=== PATIENT | female | born 1945 | race Caucasian/White ===

== ENCOUNTER 2023-11-26 11:22 | Outpatient (RCR) | payer MEDICARE, OTHER, SELFPAY | END 2023-11-26 23:59 | disposition home or self-care (01) | LOC: RPT 11:22 | PROVIDERS: ATTENDING PHYSICIAN Family Medicine | DX: G14 Postpolio syndrome (principal); R26.89 Other abnormalities of gait and mobility; R26.2 Difficulty in walking, not elsewhere classified; M62.81 Muscle weakness (generalized) | CPT/HCPCS: 97163 ==

== ENCOUNTER 2023-12-26 15:10 | Outpatient (RCR) | payer MEDICARE, OTHER, SELFPAY | END 2023-12-26 23:59 | disposition home or self-care (01) | LOC: RPT 15:10 | PROVIDERS: ATTENDING PHYSICIAN Family Medicine | DX: R26.89 Other abnormalities of gait and mobility (principal); G14 Postpolio syndrome; R26.2 Difficulty in walking, not elsewhere classified; M62.81 Muscle weakness (generalized); M79.605 Pain in left leg | CPT/HCPCS: 97110; 97112; 97116; 97530 ==

== ENCOUNTER 2024-01-20 08:19 | Outpatient (RCR) | payer MEDICARE, OTHER, SELFPAY | END 2024-01-20 23:59 | disposition home or self-care (01) | LOC: RST 08:19 | PROVIDERS: ATTENDING PHYSICIAN Family Medicine | DX: G31.84 Mild cognitive impairment of uncertain or unknown etiology (principal); R41.841 Cognitive communication deficit | CPT/HCPCS: 96125; 97129; 97130 ==

== ENCOUNTER 2024-01-27 14:18 | Outpatient (RCR) | payer MEDICARE, OTHER, SELFPAY | END 2024-01-27 23:59 | disposition home or self-care (01) | LOC: RPT 14:18 | PROVIDERS: ATTENDING PHYSICIAN Family Medicine | DX: R26.89 Other abnormalities of gait and mobility (principal); G14 Postpolio syndrome; R26.2 Difficulty in walking, not elsewhere classified; M62.81 Muscle weakness (generalized); M79.605 Pain in left leg; Z73.6 Limitation of activities due to disability | CPT/HCPCS: 97110; 97112; 97116; 97530 ==

== ENCOUNTER 2024-02-24 15:39 | Outpatient (RCR) | payer MEDICARE, OTHER, SELFPAY | END 2024-02-24 23:59 | disposition home or self-care (01) | LOC: RPT 15:39 | PROVIDERS: ATTENDING PHYSICIAN Family Medicine | DX: R26.89 Other abnormalities of gait and mobility (principal); G14 Postpolio syndrome | CPT/HCPCS: 97110; 97112; 97116; 97530 ==

== ENCOUNTER 2024-02-27 10:55 | Outpatient (RCR) | payer MEDICARE, OTHER, SELFPAY | END 2024-02-27 23:59 | disposition home or self-care (01) | LOC: RST 10:55 | PROVIDERS: ATTENDING PHYSICIAN Family Medicine | DX: G31.84 Mild cognitive impairment of uncertain or unknown etiology (principal); R41.841 Cognitive communication deficit | CPT/HCPCS: 97129; 97130 ==

== ENCOUNTER 2024-03-02 12:27 | Outpatient (RCR) | payer MEDICARE, OTHER, SELFPAY | END 2024-03-02 23:59 | disposition home or self-care (01) | LOC: ROT 12:27 | PROVIDERS: ATTENDING PHYSICIAN Family Medicine | DX: G31.84 Mild cognitive impairment of uncertain or unknown etiology (principal) | CPT/HCPCS: 97129; 97130; 97167; 97530; 97535 ==

== ENCOUNTER 2024-03-23 12:37 | Outpatient (RCR) | payer MEDICARE, OTHER, SELFPAY | END 2024-03-23 23:59 | disposition home or self-care (01) | LOC: RPT 12:37 | PROVIDERS: ATTENDING PHYSICIAN Family Medicine | DX: R26.89 Other abnormalities of gait and mobility (principal) | CPT/HCPCS: 97110; 97112; 97116; 97530 ==

== ENCOUNTER 2024-04-05 10:00 | Outpatient (RCR) | payer MEDICARE, OTHER, SELFPAY | END 2024-04-05 23:59 | disposition home or self-care (01) | LOC: RPT 10:00 | PROVIDERS: ATTENDING PHYSICIAN Family Medicine | DX: R26.89 Other abnormalities of gait and mobility (principal); G14 Postpolio syndrome | CPT/HCPCS: 97110; 97112; 97116; 97530 ==

== ENCOUNTER → 2024-04-15 09:39 | Outpatient (REF) | payer MEDICARE, OTHER, SELFPAY | LOC: MRI 09:39 | PROVIDERS: ATTENDING PHYSICIAN Psychiatry & Neurology Neurology; FAMILY PHYSICIAN Family Medicine | DX: G45.9 Transient cerebral ischemic attack, unspecified (principal) | CPT/HCPCS: 70544; 70549; 70553; A9585 ==

== ENCOUNTER 2024-04-26 13:52 | Outpatient (RCR) | payer MEDICARE, OTHER, SELFPAY | END 2024-04-26 23:59 | disposition home or self-care (01) | LOC: ROT 13:52 | PROVIDERS: ATTENDING PHYSICIAN Family Medicine | DX: G31.84 Mild cognitive impairment of uncertain or unknown etiology (principal); R41.841 Cognitive communication deficit; Z73.6 Limitation of activities due to disability | CPT/HCPCS: 93306; 97129; 97130; 97530; 97535 ==

== ENCOUNTER 2024-04-30 13:06 | Outpatient (RCR) | payer MEDICARE, OTHER, SELFPAY | END 2024-05-04 07:51 | disposition home or self-care (01) | LOC: ROT 13:06 | PROVIDERS: ATTENDING PHYSICIAN Family Medicine | DX: R41.841 Cognitive communication deficit (principal); Z73.6 Limitation of activities due to disability | CPT/HCPCS: 97129; 97130; 97530; 97535 ==

== ENCOUNTER → 2024-06-17 11:16 | Outpatient (REF) | payer MEDICARE, OTHER, SELFPAY | LOC: MRI 3T 11:16 | PROVIDERS: ATTENDING PHYSICIAN Psychiatry & Neurology Neurology; FAMILY PHYSICIAN Family Medicine | DX: R93.7 Abnormal findings on diagnostic imaging of other parts of musculoskeletal system (principal) | CPT/HCPCS: 72141 ==

== ENCOUNTER → 2024-08-20 10:24 | Outpatient (REF) | payer MEDICARE, OTHER, SELFPAY | LOC: RAD 10:24 | PROVIDERS: ATTENDING PHYSICIAN Surgery Vascular Surgery; FAMILY PHYSICIAN Family Medicine | DX: I65.21 Occlusion and stenosis of right carotid artery (principal); I77.1 Stricture of artery | CPT/HCPCS: 93880; 93931 ==

== ENCOUNTER 2024-09-16 13:31 | Inpatient (IN) | payer MEDICARE, OTHER, SELFPAY ==
[2024-09-16] VITALS (10 sets, daily range): BP systolic 107–161; BP diastolic 71–96; BMI 35.4
--- NOTE | 2024-09-16 08:27 | ED.GENMED ---
History of Present Illness
General
Chief Complaint: Fall
Time Seen by Provider: 09/16/24 08:12
History of Present Illness
History of Present Illness:
79-year-old female with history of hypertension, hyperlipidemia, and insulin-dependent diabetes presents to the emergency department for evaluation of right hip pain after a fall earlier this morning. States she got up to go to the bathroom when
she lost her balance, fell striking the front of her head on the wall. She is uncertain of the details thereafter but 911 was called by her who was nearby. She currently denies headache, neck pain, or vision changes. Obvious shortening
and external rotation of the right lower extremity is noted
Past History
Past History
ED Past Medical History: HTN, Hypercholesterolemia, IDDM and Hypothyroidism
ED Past Surgical History: Appendectomy and (X 4)
Social History
Tobacco: Non-smoker
Alcohol: None
Personal:
Living: assisted living (For rehab)
Review of Systems
Review of Systems
Allergies reviewed?: Yes
All Other Systems: ROS reviewed and negative except as documented in HPI and ROS
Phy Exam
Physical Exam
Physical Exam:
GEN: Well appearing, NAD, WDWN
Eyes: PERRLA, EOMs intact, no scleral icterus
HENT: NCAT, oral mucosa moist
Lungs: CTAB, no wheezes, rales, rhonchi, normal chest wall excursion
Cardiac: RRR, no M/R/G, no peripheral edema. Radial pulses 2+ bilat
Abdomen: S, NT, ND, NABS, no masses or hepatosplenomegaly
Neuro: AO x 3, cranial nerves II through XII grossly intact, no focal deficits to BUE/BLE, normal sensation throughout
MSK: Obvious shortening and external rotation of the right lower extremity. No reproduced tenderness to palpation of the right hip, no crepitus
Skin: No rashes, petechiae. Normal color, no pallor or jaundice.
Psych: Calm, cooperative, proper hygiene
Course
Orders/Labs/Results
Orders:
Orders
09/16/24 08:26
CT Head W/o Iv Contrast Urgent
Comment:
Reason For Exam: fall head injury
HYDROmorphone [Dilaudid] 0.25 mg IV NOW STA
CR Hip - RT w/wo Pel 2-3 Vw* Urgent
Comment:
Reason For Exam: fall
Include a pelvis x-ray?: Yes
09/16/24 08:28
Complete Blood Count/With Diff Urgent
Comprehensive Metabolic Panel Urgent
09/16/24 09:36
Electrocardiogram (*1) Urgent
Reason for Study: QTc Monitoring
EKG- Treatment ONCE
09/16/24 10:30
HYDROmorphone [Dilaudid] 0.25 mg IV NOW STA
09/16/24 11:32
HYDROmorphone [Dilaudid] 0.25 mg IV NOW STA
CR Knee - Right 1 Or 2 Views Urgent
Comment:
Reason For Exam: hip fx, knee pain
09/16/24 12:58
Admit/Transfer Patient As Directed
Co-Sign Provider:
Level of Care: Inpatient admission
Assign to:: Telemetry
Physician / Group: pasricha/medicine
Diagnosis: fx
Reason for Telemetry: Arrhythmia
Date to Stop Telemetry: 09/19/24
Time to Stop Telemetry: 11:00
Reason for Hospitalization: fx
Expected length of stay greater than two midnights?: Yes
ELOS- Estimated Length of Stay in days: 3
I certify the patient meets the requirements for IP care: Yes
09/16/24 13:00
PRN Pain Medication Management As Directed
May give lesser potent ordered pain med per pt: Yes
preference::
Protocol:: Medication orders for pain may be administered in a
manner that supports deferring to patient preference
when the pt is:
- Requesting an ordered lesser potent pain medication.
Least to most potent pain medications are defined
as: acetaminophen < NSAID < tramadol < opioids
(morphine, oxycodone, hydromorphone).
- Requesting a lesser dose of the same medication IF
ORDERED.
- Requesting a less intrusive route of administration
if both routes are prescribed by the provider (PO <
IV).
09/16/24 13:05
Code Status As Directed
Resuscitation Status: Full Code
09/16/24 15:01
Morphine Sulfate 1 mg IV Q2HPRN PRN
09/19/24 11:00
DC Protocol for Telemetry ONCE
Abnormal Lab Results
09/16/24
08:28
MCH 31.5 H pg
(27.0-31.0)
Abs Immat Gran (auto) 0.1 H 10^3/uL
(0-0.05)
Absolute Neuts (auto) 8.1 H 10^3/uL
(1.4-6.5)
Absolute Lymphs (auto) 0.9 L 10^3/uL
(1.2-3.4)
Immature Gran % 0.6 H %
(0-0.5)
Neutrophils % 83.0 H %
(42.2-75.2)
Lymphocytes % 9.3 L %
(20.5-51.1)
Carbon Dioxide 31 H mmol/L
(22-30)
BUN 19 H mg/dl
(7-17)
Creatinine 0.5 L mg/dL
(0.6-1.0)
Glucose 296 H mg/dl
(70-99)
Total Protein 6.1 L g/dl
(6.3-8.2)
09/16/24 08:28
09/16/24 08:28
Vital Signs
Initial and Last Documented VS:
Initial Vital Signs
Temp Pulse Resp BP Pulse Ox
97.8 F 90 16 152/75 98
09/16/24 08:13 09/16/24 08:13 09/16/24 08:13 09/16/24 08:13 09/16/24 08:13
Last Documented Vital Signs
Temp Pulse Resp BP Pulse Ox
97.8 F 97 17 161/93 97
09/16/24 08:13 09/16/24 10:00 09/16/24 10:00 09/16/24 09:21 09/16/24 10:00
MDM/Problems Addressed
MDM/Problems Addressed:
Intertrochanteric fracture identified on x-rays, will admit to the medical service for orthopedic consultation and further management
*Critical Care Note
Total Time (30-74mins, 75-104mins- exclusive of procedures): Not Applicable
ED Attending Note
-
Portions of this chart may have been created with voice recognition software.� Occasional wrong word or��sound alike� substitutions may have occurred due to the inherent limitations of voice recognition software.
Discharge Plan
Departure
Patient Disposition: Admit
Date of Disposition: 09/16/24
Time of Disposition: 09:24
Admit to: Med/Surg
Presentation/result/management discussed w/ accepting MD/DO: Hospitalist
Discharge Problem:
Closed intertrochanteric fracture of right femur
Interventions
Interventions:
*Risk Screen - Suicide Last Done: 09/16/24 08:13
*General Assessment Last Done: 09/16/24 08:13
*Neglect/Abuse Screening Last Done: 09/16/24 08:13
*ED COVID-19 Vaccine History Last Done: 09/16/24 08:13
ED-Musculoskeletal Assessment Last Done: 09/16/24 10:06
ED- Neurological Assessment Last Done: 09/16/24 10:06
ED-Skin Assessment Last Done: 09/16/24 10:06
[2024-09-16] MEDS: DILAUDID 0.25 MG IV ×3 (08:30→11:47)
[2024-09-16 08:47] LABS: % Basophils 0.7 % (0-2); % Eosinophils 0.8 % (0-6); % Immature Granulocytes 0.6 % (0-0.5); % Lymphocytes 9.3 % (20.5-51.1); % Monocytes 5.6 % (1.7-9.3); Absolute Basophils 0.1 10^3/uL (0-0.2); Absolute Eosinophils 0.1 10^3/uL (0-0.7); Absolute Immature Granulocytes 0.1 10^3/uL (0-0.05); Absolute Lymphocytes 0.9 10^3/uL (1.2-3.4); Absolute Monocytes 0.6 10^3/uL (0.1-0.6); Absolute Neutrophils 8.1 10^3/uL (1.4-6.5); Hematocrit 41.6 % (37.0-47.0); Mean Corp Hgb Conc. 33.7 g/dL (33.0-37.0); Mean Corpuscular Hgb 31.5 pg (27.0-31.0); Mean Corpuscular Volume 93.5 fL (81.0-99.0); Mean Platelet Volume 10.4 fL (7.4-10.4); Nucleated Red Blood Cells % 0 %; Platelet Count 260 10^3/uL (130-400); Red Blood Cell Count 4.45 10^6/uL (4.20-5.40); Red Cell Dist. Width 12.2 % (11.5-14.5); White Blood Cell Count 9.8 10^3/uL (4.8-10.8)
[2024-09-16 08:49] LABS: ALT (SGPT) 20 U/L (0-35); AST (SGOT) 21 U/L (14-36); Albumin 3.7 g/dl (3.5-5.0); Alkaline Phosphatase 105 U/L (38-126); Blood Urea Nitrogen 19 mg/dl (7-17); Calcium 8.9 mg/dl (8.4-10.2); Carbon Dioxide 31 mmol/L (22-30); Chloride 101 mmol/L (98-107); Estimated Creatinine Clearance 77 ml/min; Glucose 296 mg/dl (70-99); Sodium 137 mmol/L (135-145); Total Bilirubin 0.5 mg/dl (0.2-1.3); Total Protein 6.1 g/dl (6.3-8.2); eGFR > 60.00
--- NOTE | 2024-09-16 14:21 | HPS.HSE ---
Family Physician
-
Family Physician: Adarsh Villela
Chief Complaint
-
Fall
History of Present Illness
79-year-old female with past medical history of hypertension, hyperlipidemia, diabetes, hypothyroidism now presents with right hip pain after a fall earlier this morning. As per patient, he got up from the bathroom, lost her balance and fell to the
floor striking her head on the wall. Remembers the fall although uncertain of the events after the fall. called 911, prompting hospital visit. Otherwise no headache, neck pain, vision changes, URI symptoms, dysuria, hematuria. One similar
episode 6 months ago. Has not seen physician for this. Remained afebrile, blood pressure 161/93, pulse 97, respiratory rate 17, saturating at 97% on room air. On physical exam, shortening and external rotation of the right lower extremity.
Remarkable labs, include slightly elevated glucose level. Head CT unremarkable for acute pathology, on aspirin. X-ray of the hip with evidence of comminuted intertrochanteric fracture of the right proximal femur. Diffuse osteopenia.
Medical History
Past Medical History
Past Medical History: Reports Other ( HTN, Hypercholesterolemia, IDDM and Hypothyroidism)
Past Surgical History: Reports Other ( Appendectomy and (X 4))
Social History
Unable to obtain full social history at this time due to: Ac[employer]
Tobacco: Non-smoker
Alcohol: None
Drug: None
Personal:
Living: Assisted Living
Family History
Family History: Not pertinent
Allergies / Home Medications
Allergies reflects when Allergies were last updated in [facility].
Home Medications with original date entered in [facility]
Allergy/Medication List:
Allergies
Allergy/AdvReac Type Severity Reaction Status Date / Time
adhesive tape Allergy Unknown Verified 09/16/24 08:18
amoxicillin Allergy Unknown- Verified 09/16/24 09:53
tolerated
cefazolin
in the past
bee venom protein (honey bee) Allergy Unknown Verified 09/16/24 08:18
minocycline [From Minocin] Allergy Unknown Verified 09/16/24 08:18
Sulfa (Sulfonamide Allergy Unknown Verified 09/16/24 08:18
Antibiotics)
Home Medications
aspirin 81 mg tablet,delayed release 81 mg PO DAILY Blood clot prevention/tx 06/07/22
atorvastatin 80 mg tablet (Lipitor) 80 mg PO DAILY High cholesterol 06/07/22
cholecalciferol (vitamin D3) 50 mcg (2,000 unit) capsule (Vitamin D3) 4,000 mcg PO HS Supplement 06/07/22
insulin glargine 100 unit/mL (3 mL) subcutaneous pen (Lantus Solostar U-100 Insulin) 24 unit SC DAILY Diabetes 06/07/22
insulin lispro 100 unit/mL subcutaneous pen (Humalog KwikPen (U-100) Insulin) 3 unit SC AC Diabetes 06/07/22
lisinopril 10 mg tablet 10 mg PO HS Blood pressure 06/07/22
cxurvtie-uthsrjjv-tlrg 8 mg-folic ac 400 mcg-vit K 10 mcg chew tablet (Centrum Chewables) 2 tab PO DAILY Supplement 06/07/22
vit C 250 mg-vit E 90 mg-zinc 40 mg-copper 1 hp-planof-wsfpcf capsule (PreserVision AREDS-2) 1 tab PO BID Supplement 06/07/22
calcium carbonate (Calcium 500) 1,000 mg PO DAILY Supplement 09/16/24
duloxetine 20 mg capsule,delayed release (Cymbalta) 40 mg PO DAILY Mental Health 09/16/24
ibuprofen 200 mg tablet (Advil) 200 mg PO DAILYPRN PRN MILD PAIN 09/16/24
levothyroxine 112 mcg tablet (Synthroid) 112 mcg PO DAILY Thyroid 09/16/24
polyethylene glycol 3350 17 gram oral powder packet (Miralax) 17 g PO DAILYPRN PRN CONSTIPATION 09/16/24
Review of Systems
-
History Source: Patient
A 12 point ROS was completed and negative except as noted: Yes
Physical Exam
Vital Signs
Vital Signs
Temp Pulse Resp BP Pulse Ox
97.8 F 97 17 161/93 97
09/16/24 08:13 09/16/24 10:00 09/16/24 10:00 09/16/24 09:21 09/16/24 10:00
Physical Exam
General: Well Developed and Well Nourished
HEENT: NormoCephalic
Respiratory: Clear
Cardiac: S1/S2
GI: Soft and Non Tender
Musculoskeletal: No Clubbing and Other ( shortening and external rotation of the right lower extremity. No reproduced tenderness to palpation of the right hip, no crepitus)
Skin: Warm
Neuro: Awake, Alert, Oriented and AO x 3
Psych: Calm
Laboratory Results
-
09/16/24 08:28
09/16/24 08:28
Laboratory Results
Total Bilirubin 0.5 mg/dl (0.2-1.3) 09/16/24 08:28
AST 21 U/L (14-36) 09/16/24 08:28
ALT 20 U/L (0-35) 09/16/24 08:28
Alkaline Phosphatase 105 U/L (38-126) 09/16/24 08:28
Data Reviewed
-
Diagnostic Radiology: Report Reviewed by me
CT Scan: Report Reviewed by me
Lab Data: Labs Reviewed by me
Impression/Plan
-
IMPRESSION:
79-year-old female with past medical history of hypertension, hyperlipidemia, diabetes, hypothyroidism now presents with right hip pain after a fall earlier this morning. Had head strike with no acute issues, X-ray of the hip with evidence of
comminuted intertrochanteric fracture of the right proximal femur.
PLAN:
#Comminuted intertrochanteric fracture of the right proximal femur.
�Ortho consulted, anticipate OR within the next 24 hours
� PT/OT thereafter
-HSQ, ASA 325mg daily most likely post OR
-remain nonweightbearing to her right lower extremity
-Continue with ice and strict elevation for edema control
- Continue with pain management as needed.
#Fall
-PT/OT
-Repeat Head CT this evening
-orthostatics after procedure
-see plan above
-Cont tele
#Hypertension
#Hyperlipidemia
� Continue lisinopril
� Continue aspirin
� Continue statin
#Hypothyroidism
� Continue Synthroid
#Diabetes type 2
� Continue insulin regimen
� Half dose Lantus anticipating OR tomorrow, n.p.o.
#DVT ppx
-hsq
[2024-09-16] MEDS: MORPHINE SULFATE 1 MG IV ×2 (15:08→20:36)
--- NOTE | 2024-09-16 16:47 | CON.ORTHO ---
Consultation - Orthopedics
History
Ms. Key is an 79-year-old female with past medical history of hypertension, hyperlipidemia, and insulin-dependent diabetes with peripheral neuropathy. Her daughter also reports a history of stroke which was found on MRI. She is seen today for
her right hip. Her and daughters are present at the bedside. She reports she was getting up from using the bathroom when she lost her balance a fell to the floor. She experienced immediate onset of pain, and was unable to get up off the
floor. She was brought to ED via EMS where x-rays revealed a right intertrochanteric femur fracture. She is resting comfortably in bed at present, but does endorse mild aching pain in the hip.
She lives with her . She has a history of polio as a child with baseline strength deficit in her right leg. She has a history of ORIF of her left femur performed by Dr. Patel on 06/08/2022. Her daughter reports she does not ambulate much
currently due to her peripheral neuropathy and strength deficits. She is able to do transfers. She does not take any daily blood thinners.
Allergies / Home Medications
Allergy/AdvReac Type Severity Reaction Status Date / Time
adhesive tape Allergy Unknown Verified 09/16/24 08:18
amoxicillin Allergy Unknown- Verified 09/16/24 09:53
tolerated
cefazolin
in the past
bee venom protein (honey bee) Allergy Unknown Verified 09/16/24 08:18
minocycline [From Minocin] Allergy Unknown Verified 09/16/24 08:18
Sulfa (Sulfonamide Allergy Unknown Verified 09/16/24 08:18
Antibiotics)
�Medication �Instructions �Recorded
aspirin 81 mg tablet,delayed 81 mg PO DAILY Blood clot 06/07/22
release prevention/tx
atorvastatin 80 mg tablet (Lipitor) 80 mg PO DAILY High cholesterol 06/07/22
cholecalciferol (vitamin D3) 50 4,000 mcg PO HS Supplement 06/07/22
mcg (2,000 unit) capsule (Vitamin
D3)
insulin glargine 100 unit/mL (3 24 unit SC DAILY Diabetes 06/07/22
mL) subcutaneous pen (Lantus
Solostar U-100 Insulin)
insulin lispro 100 unit/mL 3 unit SC AC Diabetes 06/07/22
subcutaneous pen (Humalog KwikPen
(U-100) Insulin)
lisinopril 10 mg tablet 10 mg PO HS Blood pressure 06/07/22
yvurjyji-nwwbhmlx-tbqj 8 mg-folic 2 tab PO DAILY Supplement 06/07/22
ac 400 mcg-vit K 10 mcg chew
tablet (Centrum Chewables)
vit C 250 mg-vit E 90 mg-zinc 40 1 tab PO BID Supplement 06/07/22
mg-copper 1 [id number]-uvmtnv-vttnvk
capsule (PreserVision AREDS-2)
calcium carbonate (Calcium 500) 1,000 mg PO DAILY Supplement 09/16/24
duloxetine 20 mg capsule,delayed 40 mg PO DAILY Mental Health 09/16/24
release (Cymbalta)
ibuprofen 200 mg tablet (Advil) 200 mg PO DAILYPRN PRN MILD PAIN 09/16/24
levothyroxine 112 mcg tablet 112 mcg PO DAILY Thyroid 09/16/24
(Synthroid)
polyethylene glycol 3350 17 gram 17 g PO DAILYPRN PRN CONSTIPATION 09/16/24
oral powder packet (Miralax)
Vital Signs / Lab Results
Temp Pulse Resp BP Pulse Ox
97.8 F 97 17 161/93 97
09/16/24 08:13 09/16/24 10:00 09/16/24 10:00 09/16/24 09:21 09/16/24 10:00
09/16/24 08:28
09/16/24 08:28
XR Right Hip 09/16/2024 IMPRESSION:
Comminuted intertrochanteric fracture of the right proximal femur.
Directed exam of the right lower extremity reveals no obvious erythema, ecchymosis, edema or lesions. Mild tenderness about the anterior and lateral hip. Thigh soft and compressible. Calf soft and nontender. Patient able to wiggle toes, plantar and
dorsiflex ankle. Neurovascularly intact distally.
Assessment / Plan
Right intertrochanteric femur fracture
--Unfortunately, Marilin sustained an intertrochanteric femur fracture in her fall. Treatment options were discussed in detail, and I recommend proceeding with a right hip cephalomedullary nail. The risks, benefits, alternatives, recovery process
and potential complications were discussed in detail with her and her family. She would like to proceed with surgical intervention of her fracture. This is tentatively scheduled for tomorrow morning under the direction of Dr. Peck. Surgical and
blood consents are signed and scanned into the patient chart. Paper copy at OR desk.
--Of note, her daughters report she is very sensitive to anesthesia, and it took her several days to recover cognitively after her last surgery. Her daughters also reports some short term memory issues recently.
--NPO after midnight for OR 09/17/24.
--NWB to RLE until surgery.
--T+S ordered.
--Pain control as needed.
--Please reach out with any additional orthopedic questions or concerns.
--- NOTE | 2024-09-16 17:30 | PTCARENOTE ---
Pt received from the ED via stretcher. Transport was w/o incident. Pt is AAOx2., HR is tachy at 116 apically. Pt is Sinus Tach on Cardiace monitor. Pt's right leg sl externally rotated. Right leg and foot with 2+ edema. Pulses are present and sl
weak to right foot. No edema on left leg/foot. VSS, Pt is afebrile. Pt instructed on plan of care. Pt verbalized understanding of instructions. Call alegre is within reach.
[2024-09-16] MEDS: SENOKOT 17.2 MG PO (20:34)
[2024-09-16] MEDS: COLACE 100 MG PO (20:34)
[2024-09-16] MEDS: OCUVITE SOFTGEL 1 CAP PO (20:34)
[2024-09-16] MEDS: HEPARIN 5000 UNITS SC (20:35)
[2024-09-16] MEDS: TYLENOL 650 MG PO ×2 (20:35→23:46)
[2024-09-16] MEDS: VITAMIN D3 (cholecalciferol) 100 MCG PO (20:38)
[2024-09-16] MEDS: ZESTRIL 10 MG PO (20:38)
[2024-09-16 22:07] LABS: Glucose - Point of Care 370 mg/dl (70-99)
[2024-09-16] MEDS: NOVOLOG FLEXPEN 5 UNITS SC (22:37)
[2024-09-16] MEDS: NOVOLOG FLEXPEN 3 UNITS SC (22:37)
[2024-09-17] VITALS (14 sets, daily range): BP systolic 98–141; BP diastolic 54–76
[2024-09-17] MEDS: MORPHINE SULFATE 1 MG IV (02:05)
[2024-09-17] MEDS: TYLENOL 650 MG PO ×3 (05:28→19:50)
[2024-09-17] MEDS: SYNTHROID 112 MCG PO (05:28)
[2024-09-17 05:58] LABS: Glucose - Point of Care 265 mg/dl (70-99)
--- NOTE | 2024-09-17 06:01 | PTCARENOTE ---
Pt awake t/o the night. Pt unable to sleep. PRN pain medication administered as ordered. HR now in the 80's in NSR on the monitor. Pt reports pain at tolerable level at rest, pain severe with movement. Pure wick remains in place. Vital signs stable.
No other changes in assessment noted at this time. Will continue to monitor.
[2024-09-17] MEDS: NOVOLOG FLEXPEN 3 UNITS SC ×2 (06:29→17:01)
--- NOTE | 2024-09-17 08:35 | PTCARENOTE ---
Addendum entered by Elayne Titus RN 09/17/24 08:57:
*Ancef & chart sent with transport.
Original Note:
Telephone report given to RIM FIRE PRIMING TOOL SETTERYODIT Blank @08:20, Rosamaria stated ok not to give a.m. meds including Lantus, 2 CHG wipes completed on nightshift; as patient was leaving with transport patient's daughter stated 'with mom's history of polio she reacts
differently to anesthesia and was told to get lessened dose', this RN called OR Rosamaria to report same and Rosamaria stated she will make MD aware.
[2024-09-17 09:06] LABS: Glucose - Point of Care 240 mg/dl (70-99)
--- NOTE | 2024-09-17 12:27 | W.IMMPOSTOP ---
Surgical Immed Post Op Note
-
Primary Surgeon: Pascual Peck MD
Assisting Surgeon:
Pre-op Diagnosis: right intertrochanteric hip fracture
Post-op Diagnosis: right intertrochanteric hip fracture
Procedure Performed: intramedullary fixation right proximal femur
Anesthesia Type: general
Specimen / Cultures: none
Estimated Blood Loss: 100mL
Complications: none apparent
Operative Findings: intertrochanteric hip fracture
Implants:[place] Gamma 3 [id number] nail, 125 degrees; [id number] lag screw
Post-operative care: WBAT, [id number] daily to start 6am POD#1, f/u 2 weeks for staple removal
Operative dictation #: [id number]
[2024-09-17 13:04] LABS: Glucose - Point of Care 303 mg/dl (70-99)
[2024-09-17] MEDS: NOVOLOG vial 9 UNITS SC (13:17)
--- NOTE | 2024-09-17 13:20 | W.PN.HOSP.TC ---
Today's Communication/Plan
-
OR today
monitor hgb thereafter
asa 325 mg annel
wbat
pt/ot
Assessment / Plan
Assessment / Plan
Physical Exam
General: Well Developed and Well Nourished
HEENT: NormoCephalic
Respiratory: Clear
Cardiac: S1/S2
GI: Soft and Non Tender
Musculoskeletal: No Clubbing and Other ( shortening and external rotation of the right lower extremity. No reproduced tenderness to palpation of the right hip, no crepitus)
Skin: Warm
Neuro: Awake, Alert, Oriented and AO x 3
Psych: Calm
#Comminuted intertrochanteric fracture of the right proximal femur.
-Status post ORIF 09/17
-ASA 325 mg daily starting tomorrow
� Follow-up 2 weeks for staple removal
� PT/OT�weightbearing as tolerated
-Continue with ice and strict elevation for edema control
- Continue with pain management as needed.
#Fall
-PT/OT
-Repeat head CT unremarkable
-orthostatics after procedure
-see plan above
-Cont tele
#Hypertension
#Hyperlipidemia
� Continue lisinopril
� Continue aspirin
� Continue statin
#Hypothyroidism
� Continue Synthroid
#Diabetes type 2
� Continue insulin regimen
� Half dose Lantus anticipating OR tomorrow, n.p.o.
#DVT ppx
-hsq
Anticipated Discharge: Within 24 hours
Subjective/Interval History
-
Date of Service: September 17, 2024
plan for OR today
Objective Data
-
Labs:
Laboratory Results
09/17/24
09:05
WBC Pending
Hgb Pending
Hct Pending
Plt Count Pending
Sodium Pending
Potassium Pending
Chloride Pending
Carbon Dioxide Pending
BUN Pending
Creatinine Pending
Glucose Pending
Calcium Pending
Vital Signs:
Vital Signs
Temp Pulse Resp BP Pulse Ox
99.4 F 89 11 134/67 97
09/17/24 12:22 09/17/24 13:15 09/17/24 13:15 09/17/24 13:15 09/17/24 13:15
I&O
09/16/24 09/17/24 09/18/24
06:59 06:59 06:59
Intake Total 480 / 480
Output Total 150 / 150
Balance 330 / 330
Review of Systems
-
History Source: Patient
All other systems: Not reviewed unless documented
Data Reviewed
-
Diagnostic Radiology: Report Reviewed by me
CT Scan: Report Reviewed by me
Labs: Labs Reviewed by me
[2024-09-17] MEDS: LANTUS SC (13:55)
[2024-09-17] MEDS: HEPARIN SC (13:55)
[2024-09-17] MEDS: NOVOLOG FLEXPEN SC (13:55)
--- NOTE | 2024-09-17 13:55 | PTCARENOTE ---
Telephone report received from DECORATING MACHINE OPERATOR Yoly @13:40; patient arrived in bed @13:55 with IVF infusing, 3 dressings c/d/i (R) hip, lateral thigh & knee; VSS.
[2024-09-17] MEDS: COLACE PO (14:06)
[2024-09-17] MEDS: TYLENOL PO ×2 (14:06→14:07)
[2024-09-17] MEDS: OCUVITE SOFTGEL PO (14:06)
[2024-09-17] MEDS: SENOKOT PO (14:06)
[2024-09-17 14:09] LABS: Glucose - Point of Care 294 mg/dl (70-99)
[2024-09-17] MEDS: NOVOLOG FLEXPEN-LOW RESISTANCE 3 UNITS SC (14:53)
[2024-09-17] MEDS: MORPHINE SULFATE 2 MG IV (15:10)
[2024-09-17] MEDS: CYMBALTA DELAYED RELEASE 40 MG PO (15:18)
[2024-09-17] MEDS: LIPITOR 80 MG PO (15:20)
[2024-09-17] MEDS: OSCAL CAL 500 1000 MG PO (15:20)
--- NOTE | 2024-09-17 15:38 | CM ---
Pt in OR. Met with pts at bedside
Spoke with Pts to complete initial assessment
pat and spouse live in a ranch style home; 3 steps to enter
Pt alert/oriented at baseline. Some assist with ADL's. Wheel chair bound at baseline - assist of 1 for transfers
is primary care-taker. Has private care-taker 1x/week. Family members assist thru week
[facility] - [facility] past
[facility] - [facility] in past
PCP - Adarsh Villela
[facility] - [facility]
Discussed possible need for SNF. wanted to discuss options with pt and family regarding SNF options
PT/OT pending
Plan - anticipate SNF pending PT/OT eval and when medically ready
[2024-09-17 16:38] LABS: Glucose - Point of Care 244 mg/dl (70-99)
[2024-09-17] MEDS: THERAGRAN 2 TABLET PO (17:00)
[2024-09-17] MEDS: NOVOLOG FLEXPEN-LOW RESISTANCE 2 UNITS SC (17:01)
[2024-09-17] MEDS: ANCEF 5 IV (17:02)
[2024-09-17] MEDS: HEPARIN 5000 UNITS SC (19:49)
[2024-09-17] MEDS: OCUVITE SOFTGEL 1 CAP PO (19:50)
[2024-09-17] MEDS: SENOKOT 17.2 MG PO (19:50)
[2024-09-17] MEDS: MOTRIN 200 MG PO (21:06)
[2024-09-17] MEDS: VITAMIN D3 (cholecalciferol) 100 MCG PO (21:07)
[2024-09-17] MEDS: COLACE 100 MG PO (21:09)
[2024-09-17 21:22] LABS: Glucose - Point of Care 222 mg/dl (70-99)
[2024-09-17] MEDS: ZESTRIL PO (23:50)
[2024-09-18] VITALS (7 sets, daily range): BP systolic 104–156; BP diastolic 49–71; PULSE 126
[2024-09-18] MEDS: TYLENOL PO ×2 (00:39→05:11)
[2024-09-18] MEDS: ANCEF 5 IV (01:16)
[2024-09-18] MEDS: ASPIRIN PO (05:34)
[2024-09-18] MEDS: SYNTHROID 112 MCG PO (05:34)
[2024-09-18 05:44] LABS: INR 1.02; PT 13.7 Sec (11.4-14.6)
[2024-09-18 05:45] LABS: APTT 34.1 Sec (23.4-35.0)
[2024-09-18 06:00] LABS: ALT (SGPT) 15 U/L (0-35); AST (SGOT) 20 U/L (14-36); Albumin 3.2 g/dl (3.5-5.0); Alkaline Phosphatase 88 U/L (38-126); Blood Urea Nitrogen 31 mg/dl (7-17); Calcium 8.5 mg/dl (8.4-10.2); Carbon Dioxide 26 mmol/L (22-30); Chloride 98 mmol/L (98-107); Estimated Creatinine Clearance 35 ml/min; Glucose 311 mg/dl (70-99); Sodium 134 mmol/L (135-145); Total Bilirubin 0.6 mg/dl (0.2-1.3); Total Protein 5.5 g/dl (6.3-8.2); eGFR 41.57
[2024-09-18 06:07] LABS: Hematocrit 31.2 % (37.0-47.0); Hemoglobin 10.3 g/dL (12.0-16.0); Mean Corpuscular Hgb 31.2 pg (27.0-31.0); Mean Corpuscular Volume 94.5 fL (81.0-99.0); Mean Platelet Volume 10.7 fL (7.4-10.4); Platelet Count 215 10^3/uL (130-400); Red Cell Dist. Width 12.7 % (11.5-14.5); White Blood Cell Count 11.6 10^3/uL (4.8-10.8)
[2024-09-18 07:43] LABS: Glucose - Point of Care 360 mg/dl (70-99)
[2024-09-18] MEDS: NOVOLOG FLEXPEN-LOW RESISTANCE 5 UNITS SC ×2 (08:37→12:03)
[2024-09-18] MEDS: NOVOLOG FLEXPEN 3 UNITS SC ×3 (08:37→16:53)
[2024-09-18] MEDS: ASPIRIN 325 MG PO (08:38)
[2024-09-18] MEDS: LANTUS 0.12 UNITS SC ×2 (08:39→09:40)
[2024-09-18] MEDS: LIPITOR 80 MG PO (08:39)
[2024-09-18] MEDS: CYMBALTA DELAYED RELEASE 40 MG PO (08:39)
[2024-09-18] MEDS: COLACE 100 MG PO ×2 (08:39→20:11)
[2024-09-18] MEDS: OSCAL CAL 500 1000 MG PO (08:39)
[2024-09-18] MEDS: THERAGRAN 2 TABLET PO (08:39)
[2024-09-18] MEDS: OCUVITE SOFTGEL 1 CAP PO ×2 (08:39→20:11)
[2024-09-18] MEDS: SENOKOT 17.2 MG PO ×2 (08:40→20:11)
[2024-09-18] MEDS: TYLENOL 650 MG PO ×4 (08:40→20:11)
--- NOTE | 2024-09-18 09:02 | W.PN.ORTHO ---
Today's Communication / Plan
-
79F POD1 R hip CMN w/ Dr. Peck
-PT/OT/DC planning
-WBAT w/ assistive devices
-DVT ppx: ASA 325mg daily x4 weeks unless recommended otherwise per primary, early ambulation and SCDs/foot pumps in bed
-diet per primary
-pain regimen in place
-ortho surg will continue to follow
Assessment
.
Distal Motor Intact: Yes
Dressing:
Clean, dry and intact.
Assessment:
Postoperative xrays show s/p R CMN
Plan
.
Surgery / Date: 09/17/24 R hip CMN w/ Dr. Peck
DVT Prophylaxis: Aspirin
Activity:
Out of bed.
PT/OT
Subjective
.
.:
Patient resting comfortably.
Vital Signs and Labs
.
Vital Signs and Labs:
Lab Results
09/18/24 05:05
09/18/24 05:05
Temp Pulse Resp BP Pulse Ox
98.2 F 107 16 156/71 96
09/18/24 07:35 09/18/24 07:35 09/18/24 07:35 09/18/24 07:35 09/18/24 07:35
PT 13.7 Sec (11.4-14.6) 09/18/24 05:05
INR 1.02 09/18/24 05:05
[2024-09-18] MEDS: MORPHINE SULFATE 1 MG IV (09:12)
--- NOTE | 2024-09-18 11:01 | CM ---
Patient seen at bedside with daughter. Patient states that she would like [facility] vs [facility] when medically appropriate. CM will send referrals via all scripts. CM will continue to follow for discharge planning needs.
Plan; SNF pending acceptance/medical appropriate
[2024-09-18] MEDS: LR 1000 IV (11:50)
[2024-09-18 11:56] LABS: Glucose - Point of Care 392 mg/dl (70-99)
--- NOTE | 2024-09-18 14:08 | W.PN.HOSP.TC ---
Today's Communication/Plan
-
ivf
monitor renal function, hgb
asa 325mg
Assessment / Plan
Assessment / Plan
Physical Exam
General: Well Developed and Well Nourished
HEENT: NormoCephalic
Respiratory: Clear
Cardiac: S1/S2
GI: Soft and Non Tender
Musculoskeletal: No Clubbing and Other ( shortening and external rotation of the right lower extremity. No reproduced tenderness to palpation of the right hip, no crepitus)
Skin: Warm
Neuro: Awake, Alert, Oriented and AO x 3
Psych: Calm
#Comminuted intertrochanteric fracture of the right proximal femur.
-POD1 R hip CMN w/ Dr. Peck
-ASA 325 mg daily for 4 weeks
� Follow-up 2 weeks for staple removal
� PT/OT�weightbearing as tolerated
-Continue with ice and strict elevation for edema control
- Continue with pain management as needed.
#Acute Blood Loss Anemia
-most likely post operatively
-ctm
#TSERING
-most likely prerenal versus renal
�Trial fluids
� Continue monitoring BMP
-hold ACEI
-stop nsaids
#Hyponatremia
-mild
-ctm
#Fall
-PT/OT
-Repeat head CT unremarkable
-see plan above
-Cont tele
#Hypertension
#Hyperlipidemia
� Continue lisinopril
� Continue aspirin
� Continue statin
#Hypothyroidism
� Continue Synthroid
#Diabetes type 2
� Continue insulin regimen
#DVT ppx
-ASA 325mg
Anticipated Discharge: > 48 hours
Subjective/Interval History
-
Date of Service: September 18, 2024
Tolerated procedure well, with TSERING, dropped hemoglobin
Objective Data
-
Labs:
Laboratory Results
09/18/24
05:05
WBC 11.6 H
Hgb 10.3 L D
Hct 31.2 L
Plt Count 215
PT 13.7
INR 1.02
APTT 34.1
Sodium 134 L
Potassium 5.0
Chloride 98
Carbon Dioxide 26
BUN 31 H
Creatinine 1.3 H
Glucose 311 H
Calcium 8.5
Total Bilirubin 0.6
AST 20
ALT 15
Alkaline Phosphatase 88
Vital Signs:
Vital Signs
Temp Pulse Resp BP Pulse Ox
98.6 F 96 18 108/49 96
09/18/24 11:15 09/18/24 11:15 09/18/24 11:15 09/18/24 11:15 09/18/24 11:15
I&O
09/17/24 09/18/24 09/19/24
06:59 06:59 06:59
Intake Total 480 / 480 200 / 200
Output Total 150 / 150
Balance 330 / 330 200 / 200
Review of Systems
-
History Source: Patient
All other systems: Not reviewed unless documented
Data Reviewed
-
Diagnostic Radiology: Report Reviewed by me
CT Scan: Report Reviewed by me
Labs: Labs Reviewed by me
[2024-09-18 16:43] LABS: Glucose - Point of Care 291 mg/dl (70-99)
[2024-09-18] MEDS: NOVOLOG FLEXPEN-LOW RESISTANCE 3 UNITS SC (16:53)
[2024-09-18] MEDS: VITAMIN D3 (cholecalciferol) 100 MCG PO (22:01)
[2024-09-18 22:42] LABS: Glucose - Point of Care 394 mg/dl (70-99)
[2024-09-18] MEDS: NOVOLOG FLEXPEN 5 UNITS SC (23:06)
[2024-09-19] MEDS: TYLENOL PO (01:17)
[2024-09-19] MEDS: LR 1000 IV (01:27)
[2024-09-19] MEDS: TYLENOL 650 MG PO ×6 (03:04→23:46)
[2024-09-19 03:22] VITALS: BP 123/55
[2024-09-19] MEDS: SYNTHROID 112 MCG PO (05:38)
[2024-09-19 05:48] LABS: Hemoglobin 9.6 g/dL (12.0-16.0); Mean Corp Hgb Conc. 34.3 g/dL (33.0-37.0); Mean Corpuscular Hgb 31.1 pg (27.0-31.0); Mean Corpuscular Volume 90.6 fL (81.0-99.0); Platelet Count 179 10^3/uL (130-400); Red Blood Cell Count 3.09 10^6/uL (4.20-5.40); Red Cell Dist. Width 12.4 % (11.5-14.5); White Blood Cell Count 9.8 10^3/uL (4.8-10.8)
[2024-09-19 06:17] LABS: ALT (SGPT) 12 U/L (0-35); AST (SGOT) 29 U/L (14-36); Alkaline Phosphatase 82 U/L (38-126); Blood Urea Nitrogen 35 mg/dl (7-17); Calcium 8.5 mg/dl (8.4-10.2); Carbon Dioxide 23 mmol/L (22-30); Chloride 100 mmol/L (98-107); Estimated Creatinine Clearance 66 ml/min; Glucose 357 mg/dl (70-99); Potassium 4.3 mmol/L (3.5-5.1); Sodium 130 mmol/L (135-145); Total Bilirubin 0.7 mg/dl (0.2-1.3); Total Protein 5.3 g/dl (6.3-8.2); eGFR > 60.00
[2024-09-19 07:20] VITALS: BP 142/70
[2024-09-19 08:01] LABS: Glucose - Point of Care 427 mg/dl (70-99)
--- NOTE | 2024-09-19 08:49 | PTOTSP ---
Please order occupational therapy for ADL dysfunction s/p right hip fx.
[2024-09-19 08:59] LABS: Glucose 432 mg/dl (70-99)
[2024-09-19] MEDS: NOVOLOG FLEXPEN 3 UNITS SC ×3 (09:08→17:08)
[2024-09-19] MEDS: NOVOLOG FLEXPEN-LOW RESISTANCE 6 UNITS SC (09:09)
[2024-09-19] MEDS: LANTUS 0.24 UNITS SC (09:09)
[2024-09-19] MEDS: CYMBALTA DELAYED RELEASE 40 MG PO (09:10)
[2024-09-19] MEDS: ASPIRIN 325 MG PO (09:10)
[2024-09-19] MEDS: THERAGRAN 2 TABLET PO (09:10)
[2024-09-19] MEDS: OCUVITE SOFTGEL 1 CAP PO ×2 (09:10→20:17)
[2024-09-19] MEDS: LIPITOR 80 MG PO (09:10)
[2024-09-19] MEDS: COLACE 100 MG PO ×2 (09:10→20:16)
[2024-09-19] MEDS: SENOKOT 17.2 MG PO ×2 (09:11→20:16)
[2024-09-19] MEDS: OSCAL CAL 500 1000 MG PO (09:11)
[2024-09-19 09:18] LABS: Osmolality Urine 625 mOsm/kg (300-900)
[2024-09-19 09:29] LABS: Urine Sodium 30 mmol/L (30-90)
[2024-09-19 09:30] VITALS: BP 130/71; PULSE 80; O2SAT 98
--- NOTE | 2024-09-19 09:35 | W.PN.ORTHO ---
Today's Communication / Plan
-
79F POD2 R hip CMSemaj w/ Dr. Peck
-PT/OT/DC planning
-WBAT w/ assistive devices
-DVT ppx: ASA 325mg daily x4 weeks unless recommended otherwise per primary, early ambulation and SCDs/foot pumps in bed
-diet per primary
-pain regimen in place
-ortho surg will follow peripherally at this time; DC info completed, please contact with further questions or concerns
Assessment
.
Distal Motor Intact: Yes
Dressing:
Clean, dry and intact.
Plan
.
Surgery / Date: 09/17/24 R hip CMN w/ Dr. Peck
Activity:
Out of bed.
PT/OT
Subjective
.
.:
Patient resting comfortably.
Vital Signs and Labs
.
Vital Signs and Labs:
Lab Results
09/19/24 05:35
09/19/24 08:37
Temp Pulse Resp BP Pulse Ox
98.4 F 101 16 142/70 95
09/19/24 07:20 09/19/24 07:20 09/19/24 07:20 09/19/24 07:20 09/19/24 07:20
PT 13.7 Sec (11.4-14.6) 09/18/24 05:05
INR 1.02 09/18/24 05:05
[2024-09-19 10:36] LABS: Glucose - Point of Care 453 mg/dl (70-99)
[2024-09-19 11:28] LABS: Glucose 444 mg/dl (70-99)
[2024-09-19] MEDS: NOVOLOG FLEXPEN 8 UNITS SC (12:03)
[2024-09-19] MEDS: NOVOLOG FLEXPEN-LOW RESISTANCE SC (12:08)
--- NOTE | 2024-09-19 12:48 | W.PN.HOSP.TC ---
Today's Communication/Plan
-
monitor hgb
monitor sodium levels
Assessment / Plan
Assessment / Plan
Physical Exam
General: Well Developed and Well Nourished
HEENT: NormoCephalic
Respiratory: Clear
Cardiac: S1/S2
GI: Soft and Non Tender
Musculoskeletal: No Clubbing and Other ( shortening and external rotation of the right lower extremity. No reproduced tenderness to palpation of the right hip, no crepitus)
Skin: Warm
Neuro: Awake, Alert, Oriented and AO x 3
Psych: Calm
#Comminuted intertrochanteric fracture of the right proximal femur.
-POD2 R hip CMN w/ Dr. Peck
-ASA 325 mg daily for 4 weeks
� Follow-up 2 weeks for staple removal
� PT/OT�weightbearing as tolerated
-Continue with ice and strict elevation for edema control
- Continue with pain management as needed.
#Acute Blood Loss Anemia
-most likely post operatively
-ctm
�Maintain hemoglobin greater than 7, transfuse as necessary
#TSERING
Resolved
-most likely prerenal
�s/p IVF
-hold ACEI
-stop nsaids
#Hyponatremia
-ctm
� Mild
-CAn consider urine na/osm if Na continues to trend down
#Fall
-PT/OT
-Repeat head CT unremarkable
-see plan above
-Cont tele
#Hypertension
#Hyperlipidemia
� Continue lisinopril
� Continue aspirin
� Continue statin
#Hypothyroidism
� Continue Synthroid
#Diabetes type 2
� Continue insulin regimen
� Add hemoglobin A1c
� Changed to high correction sliding scale
#DVT ppx
-ASA 325mg
Anticipated Discharge: 24 - 48 hours
Subjective/Interval History
-
Date of Service: September 19, 2024
No acute events overnight
Objective Data
-
Labs:
Laboratory Results
09/19/24 09/19/24 09/19/24
05:35 08:37 10:48
WBC 9.8
Hgb 9.6 L
Hct 28.0 L
Plt Count 179
Sodium 130 L
Potassium 4.3
Chloride 100
Carbon Dioxide 23
BUN 35 H
Creatinine 0.7
Glucose 357 H 432 H 444 H
Calcium 8.5
Total Bilirubin 0.7
AST 29
ALT 12
Alkaline Phosphatase 82
Vital Signs:
Vital Signs
Temp Pulse Resp BP Pulse Ox
98.4 F 101 16 142/70 95
09/19/24 07:20 09/19/24 07:20 09/19/24 07:20 09/19/24 07:20 09/19/24 07:20
I&O
09/18/24 09/19/24 09/20/24
06:59 06:59 06:59
Intake Total 200 / 200 2155 / 2155 240 / 240
Balance 200 / 200 2155 / 2155 240 / 240
Review of Systems
-
History Source: Patient
All other systems: Not reviewed unless documented
Data Reviewed
-
Diagnostic Radiology: Report Reviewed by me
CT Scan: Report Reviewed by me
Labs: Labs Reviewed by me
[2024-09-19 12:49] LABS: Glucose - Point of Care 405 mg/dl (70-99)
[2024-09-19] MEDS: LR IV (12:56)
[2024-09-19 13:31] LABS: Glycohemoglobin (HgbA1c) 10.5 % (4.0-5.6)
[2024-09-19 15:30] VITALS: BP 130/60
[2024-09-19 16:59] LABS: Glucose - Point of Care 347 mg/dl (70-99)
[2024-09-19] MEDS: NOVOLOG FLEXPEN-HIGH RESISTANCE 10 UNITS SC (17:09)
[2024-09-19 19:10] VITALS: BP 136/68
[2024-09-19] MEDS: VITAMIN D3 (cholecalciferol) 100 MCG PO (21:18)
[2024-09-19 22:28] LABS: Glucose - Point of Care 324 mg/dl (70-99)
[2024-09-19 23:20] VITALS: BP 147/68
[2024-09-20] VITALS (8 sets, daily range): BP systolic 130–187; BP diastolic 67–80; PULSE 92–127; O2SAT 96
[2024-09-20] MEDS: TYLENOL 650 MG PO ×2 (03:54→08:54)
[2024-09-20] MEDS: SYNTHROID 112 MCG PO (05:39)
[2024-09-20 07:31] LABS: ALT (SGPT) 21 U/L (0-35); AST (SGOT) 42 U/L (14-36); Alkaline Phosphatase 113 U/L (38-126); Blood Urea Nitrogen 25 mg/dl (7-17); Calcium 8.6 mg/dl (8.4-10.2); Carbon Dioxide 29 mmol/L (22-30); Chloride 100 mmol/L (98-107); Estimated Creatinine Clearance 77 ml/min; Glucose 326 mg/dl (70-99); Potassium 4.3 mmol/L (3.5-5.1); Sodium 134 mmol/L (135-145); Total Bilirubin 0.7 mg/dl (0.2-1.3); Total Protein 5.3 g/dl (6.3-8.2); eGFR > 60.00
[2024-09-20 07:33] LABS: Hematocrit 27.1 % (37.0-47.0); Hemoglobin 9.4 g/dL (12.0-16.0); Mean Corp Hgb Conc. 34.7 g/dL (33.0-37.0); Mean Corpuscular Volume 92.2 fL (81.0-99.0); Platelet Count 230 10^3/uL (130-400); Red Blood Cell Count 2.94 10^6/uL (4.20-5.40); Red Cell Dist. Width 12.6 % (11.5-14.5); White Blood Cell Count 9.8 10^3/uL (4.8-10.8)
[2024-09-20 07:39] LABS: Glucose - Point of Care 402 mg/dl (70-99)
[2024-09-20 08:49] LABS: Glucose 363 mg/dl (70-99)
[2024-09-20] MEDS: NOVOLOG FLEXPEN-HIGH RESISTANCE 12 UNITS SC (08:51)
[2024-09-20] MEDS: NOVOLOG FLEXPEN 3 UNITS SC ×3 (08:51→16:53)
[2024-09-20] MEDS: LANTUS 0.24 UNITS SC (08:53)
[2024-09-20] MEDS: CYMBALTA DELAYED RELEASE 40 MG PO (08:53)
[2024-09-20] MEDS: LIPITOR 80 MG PO (08:53)
[2024-09-20] MEDS: ASPIRIN 325 MG PO (08:54)
[2024-09-20] MEDS: SENOKOT PO (08:54)
[2024-09-20] MEDS: OCUVITE SOFTGEL 1 CAP PO (08:54)
[2024-09-20] MEDS: THERAGRAN 2 TABLET PO (08:54)
[2024-09-20] MEDS: COLACE PO (08:54)
[2024-09-20] MEDS: OSCAL CAL 500 1000 MG PO (08:54)
--- NOTE | 2024-09-20 10:07 | W.PN.HOSP.TC ---
Today's Communication/Plan
-
Increase Lantus, give extra dose this morning
dc in am
start oral iron
Assessment / Plan
Assessment / Plan
Physical Exam
General: Well Developed and Well Nourished
HEENT: NormoCephalic
Respiratory: Clear
Cardiac: S1/S2
GI: Soft and Non Tender
Musculoskeletal: No Clubbing and Other ( shortening and external rotation of the right lower extremity. No reproduced tenderness to palpation of the right hip, no crepitus)
Skin: Warm
Neuro: Awake, Alert, Oriented and AO x 3
Psych: Calm
#Comminuted intertrochanteric fracture of the right proximal femur.
-POD2 R hip CMN w/ Dr. Peck
-ASA 325 mg daily for 4 weeks
� Follow-up 2 weeks for staple removal
� PT/OT�weightbearing as tolerated
-Continue with ice and strict elevation for edema control
- Continue with pain management as needed.
#Acute Blood Loss Anemia
-most likely post operatively
Start oral iron
�Maintain hemoglobin greater than 7, transfuse as necessary
#TSERING
Resolved
-most likely prerenal
�s/p IVF
-hold ACEI
-stop nsaids
#Hyponatremia
-ctm
� Mild
-CAn consider urine na/osm if Na continues to trend down
#Fall
-PT/OT
-Repeat head CT unremarkable
-see plan above
-Cont tele
#Hypertension
#Hyperlipidemia
� Continue lisinopril
� Continue aspirin
� Continue statin
#Hypothyroidism
� Continue Synthroid
#Diabetes type 2
Poorly controlled.
Still uncontrolled, increase Lantus
� Continue insulin regimen
� 10.5 hemoglobin A1c
� Changed to high correction sliding scale
#DVT ppx
-ASA 325mg
Total time spent to see the patient, examine the patient, review data and lab results, discuss the treatment plan with patient, nursing staff around 55 minutes
Anticipated Discharge: Within 24 hours
Subjective/Interval History
-
Date of Service: September 20, 2024
No chest pain
No sob
Objective Data
-
Labs:
Laboratory Results
09/20/24 09/20/24
06:10 08:18
WBC 9.8
Hgb 9.4 L
Hct 27.1 L
Plt Count 230 D
Sodium 134 L
Potassium 4.3
Chloride 100
Carbon Dioxide 29
BUN 25 H
Creatinine 0.6
Glucose 326 H 363 H
Calcium 8.6
Total Bilirubin 0.7
AST 42 H
ALT 21
Alkaline Phosphatase 113
Vital Signs:
Vital Signs
Temp Pulse Resp BP Pulse Ox
98.0 F 103 18 187/80 97
09/20/24 07:00 09/20/24 07:00 09/20/24 07:00 09/20/24 07:00 09/20/24 07:00
I&O
09/19/24 09/20/24 09/21/24
06:59 06:59 06:59
Intake Total 2154 / 2154 1080 / 1080
Balance 215 / 215 1080 / 1080
[2024-09-20] MEDS: LANTUS 0.1 UNITS SC (11:33)
[2024-09-20 11:47] LABS: Glucose - Point of Care 286 mg/dl (70-99)
[2024-09-20] MEDS: NOVOLOG FLEXPEN-HIGH RESISTANCE 7 UNITS SC (12:16)
--- NOTE | 2024-09-20 15:32 | PN.CDI ---
Addendum entered and electronically signed by Kelsey De Oliveira MD 09/20/24 15:49:
Multifactorial due to low level fall/ Age related Osteoporosis
Original Note:
CDI
- -
CDI:
Physician Documentation Request
Admit Date: 09/16/24 13:31
Dear Doctor Yennifer,
Please review the following and provide your response in the progress notes.
Clinical Indicators:
Pt admitted with Comminuted intertrochanteric fracture of the right proximal femur s/p ORIF on 09/18
Documented per ED, ' ... States she got up to go to the bathroom when she lost her balance, fell striking the front of her head on the wall.....'
Knee xray, ' AP and lateral only views of the right knee were obtained in this patient with apparent right hip fracture.There is likely some diffuse osteopenia.'
Bone Density from 11/20/11, ' IMPRESSION: Osteoporosis. There has been a statistically significant decrease in bone mineral density in the lumbar spine since the prior examination. ...'
Per MAR pt takes cholecalciferol (vitamin D3) 50 mcg (2,000 unit) capsule (Vitamin D3) 4,000 mcg PO HS Supplement /calcium carbonate (Calcium 500) 1,000 mg PO DAILY Supplement
Please provide the suspected etiology of the documented right femur fracture:
Multifactorial due to low level fall/ Age related Osteoporosis
Due to low level fall only
Other ( please specify)
Use of terms such as suspected, likely, concern for, or probable (associated with a specific diagnosis that is being evaluated, monitored, or treated as if it exists) are acceptable and can be coded in the inpatient setting, when documented at the
time of discharge.
Thank you,
Carrol Elizabeth RN
CDI Specialist
[facility]
Please use your independent medical judgment in providing your response.
--- NOTE | 2024-09-20 16:17 | CM ---
Chart reviewed
Accepted at [facility] and [facility] - both pend bed availability
Plan - SNF when medically stable
[2024-09-20 16:51] LABS: Glucose - Point of Care 206 mg/dl (70-99)
[2024-09-20] MEDS: TYLENOL 1000 MG PO ×2 (16:53→20:51)
[2024-09-20] MEDS: NOVOLOG FLEXPEN-HIGH RESISTANCE 4 UNITS SC (16:54)
[2024-09-20] MEDS: VITAMIN D3 (cholecalciferol) 100 MCG PO (20:51)
[2024-09-20 21:35] LABS: Glucose - Point of Care 110 mg/dl (70-99)
[2024-09-21 03:15] VITALS: BP 160/75
[2024-09-21] MEDS: SYNTHROID 112 MCG PO (05:29)
[2024-09-21 07:00] VITALS: BP 162/86
[2024-09-21 08:12] LABS: Glucose - Point of Care 334 mg/dl (70-99)
[2024-09-21] MEDS: LANTUS 0.35 UNITS SC (08:42)
[2024-09-21] MEDS: NOVOLOG FLEXPEN 3 UNITS SC (08:42)
[2024-09-21] MEDS: CYMBALTA DELAYED RELEASE 40 MG PO (08:43)
[2024-09-21] MEDS: TYLENOL 1000 MG PO ×3 (08:43→21:23)
[2024-09-21] MEDS: NOVOLOG FLEXPEN-HIGH RESISTANCE 10 UNITS SC ×2 (08:43→16:47)
[2024-09-21] MEDS: LIPITOR 80 MG PO (08:43)
[2024-09-21] MEDS: OSCAL CAL 500 1000 MG PO (08:43)
[2024-09-21] MEDS: ASPIRIN 325 MG PO (08:44)
[2024-09-21] MEDS: FEOSOL 325 MG PO (08:44)
--- NOTE | 2024-09-21 10:51 | CM ---
Addendum entered by Lizeth Sousa 09/21/24 12:54:
tt hospitalist not ready for d/c today.
Original Note:
Patient seen at bedside with daughter
Per hospitalist note tentative d/c in am
IMM explained & signed. In chart
[facility] preferred-accepted
Called Graciela at [facility] to inquire about bed availibility. Await call back
PLAN: SNF, pending bed availability
[2024-09-21 11:47] LABS: Glucose - Point of Care 260 mg/dl (70-99)
--- NOTE | 2024-09-21 12:23 | W.PN.HOSP.TC ---
Today's Communication/Plan
-
Increase pre-meal insulin
c/w higher dose Lantus,
Blood glucose still high to discharge
Assessment / Plan
Assessment / Plan
Physical Exam
General: Well Developed and Well Nourished
HEENT: NormoCephalic
Respiratory: Clear
Cardiac: S1/S2
GI: Soft and Non Tender
Musculoskeletal: No Clubbing and Other ( shortening and external rotation of the right lower extremity. No reproduced tenderness to palpation of the right hip, no crepitus)
Skin: Warm
Neuro: Awake, Alert, Oriented and AO to self and surroundings, she followed commands.
Psych: Calm
#Comminuted intertrochanteric fracture of the right proximal femur.
-POD2 R hip CMN w/ Dr. Peck
-ASA 325 mg daily for 4 weeks
� Follow-up 2 weeks for staple removal
� PT/OT�weightbearing as tolerated
-Continue with ice and strict elevation for edema control
- Continue with pain management as needed.
#Acute Blood Loss Anemia
-most likely post operatively
Start oral iron
�Maintain hemoglobin greater than 7, transfuse as necessary
#TSERING
Resolved
-most likely prerenal
�s/p IVF
-hold ACEI
-stopped nsaids
#Hyponatremia
-ctm
� Mild
-CAn consider urine na/osm if Na continues to trend down
#Fall
-PT/OT
-Repeat head CT unremarkable
-see plan above
-Cont tele
#Hypertension
#Hyperlipidemia
� Continue lisinopril
� Continue aspirin
� Continue statin
#Hypothyroidism
� Continue Synthroid
#Diabetes type 2
Poorly controlled. � 10.5 hemoglobin A1c
Still uncontrolled, increased Lantus, will increase pre-meal insulin
� Continue insulin regimen
� Changed to high correction sliding scale
#DVT ppx
-ASA 325mg
Total time spent to see the patient, examine the patient, review data and lab results, discuss the treatment plan with patient, nursing staff around 55 minutes
Anticipated Discharge: Within 24 hours
Subjective/Interval History
-
Date of Service: September 21, 2024
No chest pain
No abdominal pain
No sob
Objective Data
-
Vital Signs:
Vital Signs
Temp Pulse Resp BP Pulse Ox
98.0 F 97 18 162/86 97
09/21/24 07:00 09/21/24 07:00 09/21/24 07:00 09/21/24 07:00 09/21/24 08:00
I&O
09/20/24 09/21/24 09/22/24
06:59 06:59 06:59
Intake Total 1080 / 1080 860 / 860
Balance 1080 / 1080 860 / 860
[2024-09-21] MEDS: NOVOLOG FLEXPEN-HIGH RESISTANCE 7 UNITS SC (12:41)
[2024-09-21] MEDS: NOVOLOG FLEXPEN SC (12:41)
[2024-09-21 14:35] VITALS: BP 119/64; PULSE 105
[2024-09-21 14:39] VITALS: BP 119/64; PULSE 105
[2024-09-21 15:00] VITALS: BP 119/64
[2024-09-21 16:46] LABS: Glucose - Point of Care 319 mg/dl (70-99)
[2024-09-21] MEDS: NOVOLOG FLEXPEN 7 UNITS SC (16:46)
[2024-09-21] MEDS: VITAMIN D3 (cholecalciferol) 100 MCG PO (21:23)
[2024-09-21 21:27] LABS: Glucose - Point of Care 243 mg/dl (70-99)
[2024-09-21 23:20] VITALS: BP 145/87
[2024-09-22] MEDS: TYLENOL 650 MG PO (04:45)
[2024-09-22] MEDS: SYNTHROID 112 MCG PO (04:46)
[2024-09-22 07:17] VITALS: BP 158/95
[2024-09-22 07:17] LABS: Glucose - Point of Care 240 mg/dl (70-99)
[2024-09-22] MEDS: NOVOLOG FLEXPEN-HIGH RESISTANCE 4 UNITS SC (09:01)
[2024-09-22] MEDS: NOVOLOG FLEXPEN 7 UNITS SC ×3 (09:04→17:00)
[2024-09-22] MEDS: TYLENOL 1000 MG PO ×3 (09:05→22:21)
[2024-09-22] MEDS: LANTUS 0.4 UNITS SC (09:05)
[2024-09-22] MEDS: FEOSOL 325 MG PO (09:06)
[2024-09-22] MEDS: CYMBALTA DELAYED RELEASE 40 MG PO (09:06)
[2024-09-22] MEDS: OSCAL CAL 500 1000 MG PO (09:06)
[2024-09-22] MEDS: ASPIRIN 325 MG PO (09:06)
[2024-09-22] MEDS: LIPITOR 80 MG PO (09:07)
--- NOTE | 2024-09-22 09:44 | W.PN.HOSP.TC ---
Today's Communication/Plan
-
likely dc in am
Assessment / Plan
Assessment / Plan
Physical Exam
General: Well Developed and Well Nourished
HEENT: Normocephalic
Respiratory: Clear
Cardiac: S1/S2
GI: Soft and Non Tender
Musculoskeletal: No Clubbing and Other ( shortening and external rotation of the right lower extremity. No reproduced tenderness to palpation of the right hip, no crepitus)
Skin: Warm
Neuro: Awake, Alert, Oriented and AO to self and surroundings, she followed commands.
Psych: Calm
#Comminuted intertrochanteric fracture of the right proximal femur.
-POD2 R hip CMN w/ Dr. Peck
-ASA 325 mg daily for 4 weeks
� Follow-up 2 weeks for staple removal
� PT/OT�weightbearing as tolerated
-Continue with ice and strict elevation for edema control
- Continue with pain management as needed.
#Acute Blood Loss Anemia
-most likely post operatively
Start oral iron
�Maintain hemoglobin greater than 7, transfuse as necessary
#TSERING
Resolved
-most likely prerenal
�s/p IVF
-held ACEI
-stopped nsaids
#Hyponatremia
No confusion
#Fall
-PT/OT
-Repeat head CT unremarkable
-see plan above
-Cont tele
#Primary Hypertension
#Hyperlipidemia
� Continue lisinopril
� Continue aspirin
� Continue statin
#Hypothyroidism
� Continue Synthroid
#Diabetes type 2
Poorly controlled. � 10.5 hemoglobin A1c
Still uncontrolled, increased Lantus to 40 units , c/w pre-meal insulin at 7 units
� Continue insulin regimen
� Changed to high correction sliding scale
#DVT ppx
-ASA 325mg
Total time spent to see the patient, examine the patient, review data and lab results, discuss the treatment plan with patient, daughter, nursing staff around 57 minutes
Anticipated Discharge: Within 24 hours
Subjective/Interval History
-
Date of Service: September 22, 2024
No chest pain or sob
No abd pain
Less pain in hip area
Objective Data
-
Vital Signs:
Vital Signs
Temp Pulse Resp BP Pulse Ox
98.2 F 95 20 158/95 96
09/22/24 07:17 09/22/24 07:17 09/22/24 07:17 09/22/24 07:17 09/22/24 07:17
I&O
09/21/24 09/22/24 09/23/24
06:59 06:59 06:59
Intake Total 860 / 860 660 / 660 480 / 480
Balance 860 / 860 660 / 660 480 / 480
[2024-09-22 12:16] LABS: Glucose - Point of Care 281 mg/dl (70-99)
[2024-09-22] MEDS: ROXICODONE 5 MG PO (13:06)
[2024-09-22] MEDS: NOVOLOG FLEXPEN-HIGH RESISTANCE 7 UNITS SC (13:08)
[2024-09-22 13:47] VITALS: BP 105/81; PULSE 106
[2024-09-22 15:45] VITALS: BP 131/61
[2024-09-22 16:46] LABS: Glucose - Point of Care 164 mg/dl (70-99)
[2024-09-22] MEDS: NOVOLOG FLEXPEN-HIGH RESISTANCE 2 UNITS SC (17:00)
[2024-09-22 21:51] LABS: Glucose - Point of Care 172 mg/dl (70-99)
[2024-09-22] MEDS: VITAMIN D3 (cholecalciferol) 100 MCG PO (22:21)
[2024-09-22 23:45] VITALS: BP 156/82
[2024-09-23] MEDS: SYNTHROID 112 MCG PO (05:19)
[2024-09-23] MEDS: ROXICODONE 5 MG PO ×2 (05:19→14:34)
[2024-09-23 07:37] LABS: Glucose - Point of Care 192 mg/dl (70-99)
[2024-09-23 08:00] VITALS: BP 158/81
--- NOTE | 2024-09-23 08:52 | W.PN.HOSP.TC ---
Today's Communication/Plan
-
dc
Assessment / Plan
Assessment / Plan
Physical Exam
General: Well Developed and Well Nourished
HEENT: Normocephalic
Respiratory: Clear
Cardiac: S1/S2
GI: Soft and Non Tender
Musculoskeletal: No Clubbing and Other ( shortening and external rotation of the right lower extremity. No reproduced tenderness to palpation of the right hip, no crepitus)
Skin: Warm
Neuro: Awake, Alert, Oriented and AO to self and surroundings, she followed commands.
Psych: Calm
#Comminuted intertrochanteric fracture of the right proximal femur.
-POD2 R hip CMN w/ Dr. Peck
-ASA 325 mg daily for 4 weeks
� Follow-up 2 weeks for staple removal
� PT/OT�weightbearing as tolerated
-Continue with ice and strict elevation for edema control
- Continue with pain management as needed.
#Acute Blood Loss Anemia
-most likely post operatively
Start oral iron
�Maintain hemoglobin greater than 7, transfuse as necessary
#TSERING
Resolved
-most likely prerenal
�s/p IVF
-held ACEI, then resumed.
-stopped nsaids
#Hyponatremia
No confusion
#Fall
-PT/OT
-Repeat head CT unremarkable
#Primary Hypertension
#Hyperlipidemia
� Continue lisinopril
� Continue aspirin
� Continue statin
#Hypothyroidism
� Continue Synthroid
#Diabetes type 2
Poorly controlled. � 10.5 hemoglobin A1c
Better controlled, increased Lantus to 40 units , c/w pre-meal insulin at 7 units
� Continue ISS insulin regimen
- Advised to f/w Dr Shabazz upon dc
� Changed to high correction sliding scale
#DVT ppx
-ASA 325mg
Total discharge time spent to see the patient, examine the patient, review data and lab results, discuss the discharge plan with patient, daughter, nursing staff around 67 minutes
Anticipated Discharge: Today
Subjective/Interval History
-
Date of Service: September 23, 2024
No complaints
denies chest pain or sob
no abd pain
Objective Data
-
Vital Signs:
Vital Signs
Temp Pulse Resp BP Pulse Ox
98.2 F 94 16 156/82 98
09/22/24 23:45 09/22/24 23:45 09/22/24 23:45 09/22/24 23:45 09/23/24 02:06
I&O
09/22/24 09/23/24 09/24/24
06:59 06:59 06:59
Intake Total 660 / 660 1680 / 1680
Balance 660 / 660 1680 / 1680
[2024-09-23] MEDS: NOVOLOG FLEXPEN 7 UNITS SC ×2 (09:05→12:37)
[2024-09-23] MEDS: NOVOLOG FLEXPEN-HIGH RESISTANCE 2 UNITS SC (09:05)
[2024-09-23] MEDS: LIPITOR 80 MG PO (09:06)
[2024-09-23] MEDS: OSCAL CAL 500 1000 MG PO (09:06)
[2024-09-23] MEDS: TYLENOL 1000 MG PO (09:06)
[2024-09-23] MEDS: CYMBALTA DELAYED RELEASE 40 MG PO (09:06)
[2024-09-23] MEDS: ASPIRIN 325 MG PO (09:06)
[2024-09-23] MEDS: LANTUS 0.4 UNITS SC (09:07)
[2024-09-23] MEDS: FEOSOL 325 MG PO (09:07)
--- NOTE | 2024-09-23 11:30 | CM ---
Pt medically ready for discharge today
[facility] can accept
Given IMM
Transport at 2:30PM - Pt and her daughter made aware. Facility aware
Plan - transfer to [facility]
R - [phone]
- [phone]
--- NOTE | 2024-09-23 11:57 | W.DCSUMMARY ---
Discharge Summary
Discharge Data
Date of Admission: 09/16/24
Date of Discharge: 09/23/24
-
Pending Results: No
Hospital Course
79 years old female presented to the emergency room after a fall. She did not have loss of consciousness or head trauma. She complained of right hip pain. Imaging studies showed right intertrochanteric hip fracture. Patient was evaluated by
orthopedic surgery. She underwent open reduction & internal fixation by Dr. Pascual Peck on September 17, 2024. No complications reported. Orthopedic doctor recommended aspirin 325 mg for 4 weeks for DVT prophylaxis. Patient was noted to have
high blood glucose. Her hemoglobin A1c was 10.5. Her insulin regimen was adjusted to better control her blood glucose. Patient was advised to follow-up with her outpatient leather skinner Dr. Shabazz. Patient remained hemodynamic stable.
Patient was discharged to care home facility in a stable condition.
Discharge Plan
-
Patient Disposition: Retirement/SNF
Discharge Diagnosis/Procedures: Comminuted intertrochanteric fracture of the right proximal femur. s/p Intramedullary fixation, right proximal femur by Dr Pascual Peck
Poorly controlled Diabetes. Acu- check AC&HS
Diet: Diabetic, Carb Controlled
Activity: As tolerated and With Walker
Driving Restrictions: Not until seen by your Dr
Bathing Restrictions: OK to Shower
Instructions: Hip fracture in adults - Discharge instructions
Referrals:
Yuli Shabazz MD [Consulting Staff] - in two to three weeks
Pascual Peck MD [Active] - (f/u 2 weeks from date of surger for wound check/staple removal; if discharged to a SNF/ARF, this may be done there and then you will follow-up between 4-6 weeks from date of surgery with xrays to be completed. If you
cannot self-transfer to an x-ray table, xrays will need to be done either at the hospital or SNF/ARF. )
Adarsh Villela MD [Family Provider] -
Prescriptions:
New
aspirin 325 mg Tablet
325 mg PO DAILY Qty: 28 0RF
ferrous sulfate [FeroSul] 325 mg (65 mg iron) Tablet
325 mg PO DAILY Qty: 30 0RF
insulin aspart U-100 100 unit/mL (3 mL) insulin pen
1 sliding scale dose SC AC Qty: 90 0RF
sennosides [Senna Laxative] 8.6 mg Tablet
17.2 mg PO BIDPRN PRN (Reason: constipation) Qty: 10 0RF
acetaminophen [Tylenol Extra Strength] 500 mg Tablet
1,000 mg PO TID Qty: 20 0RF
oxycodone 5 mg Tablet
5 mg PO Q4HPRN PRN (Reason: severe pain) Qty: 10 0RF
Continued
atorvastatin [Lipitor] 80 mg Tablet
80 mg PO DAILY
aspirin 81 mg Tablet,Delayed Release (Dr/Ec)
81 mg PO DAILY
lisinopril 10 mg tablet
10 mg PO HS
cholecalciferol (vitamin D3) [Vitamin D3] 50 mcg (2,000 unit) Capsule
4,000 mcg PO HS
PreserVision AREDS-2 250-90-40-1 mg Capsule
1 tab PO BID
Centrum Chewables 8 mg-400 mcg- 10 mcg Tablet,Chewable
2 tab PO DAILY
calcium carbonate [Calcium 500] 500 mg calcium (1,250 mg) Tablet,Chewable
1,000 mg PO DAILY
levothyroxine [Synthroid] 112 mcg Tablet
112 mcg PO DAILY
duloxetine [Cymbalta] 20 mg Capsule,Delayed Release(Dr/Ec)
40 mg PO DAILY
Changed
polyethylene glycol 3350 [Miralax] 17 gram Powder In Packet
17 g PO DAILY Qty: 0 0RF
insulin lispro [Humalog KwikPen Insulin] 100 unit/mL insulin pen
7 unit SC AC Qty: 0 0RF
insulin glargine [Lantus Solostar U-100 Insulin] 100 unit/mL (3 mL) insulin pen
35 unit SC DAILY Qty: 0 0RF
Discontinued
ibuprofen [Advil] 200 mg Tablet
200 mg PO DAILYPRN PRN (Reason: MILD PAIN)
Discharge Orders:
Discharge Patient (As Directed); Ordered 09/23/24
Ordered By: Kelsey De Oliveira
Discharge Date and Time
Print Language: FAROESE
[2024-09-23 12:22] LABS: Glucose - Point of Care 350 mg/dl (70-99)
[2024-09-23] MEDS: NOVOLOG FLEXPEN-HIGH RESISTANCE 12 UNITS SC (12:36)
== END 2024-09-23 15:20 | DRG 481 ==
LOC: 2 SOUTH 13:31
PROVIDERS: Physician Assistant; Student in an Organized Health Care Education/Training Program; ADMITTING PHYSICIAN Internal Medicine; ATTENDING PHYSICIAN Internal Medicine; CONSULT PHYSICIAN Orthopaedic Surgery; EMERGENCY PHYSICIAN Student in an Organized Health Care Education/Training Program; FAMILY PHYSICIAN Family Medicine
PROC: 0QS636Z Reposition Right Upper Femur with Intramedullary Internal Fixation Device, Percutaneous Approach (ICD-10-PCS; 2024-09-17)
DX: M80.051A Age-related osteoporosis with current pathological fracture, right femur, initial encounter for fracture (principal); D62 Acute posthemorrhagic anemia; N17.9 Acute kidney failure, unspecified; E87.1 Hypo-osmolality and hyponatremia; E78.00 Pure hypercholesterolemia, unspecified; E03.9 Hypothyroidism, unspecified; E11.42 Type 2 diabetes mellitus with diabetic polyneuropathy; I10 Essential (primary) hypertension; S09.90XA Unspecified injury of head, initial encounter; Z88.2 Allergy status to sulfonamides; W01.198A Fall on same level from slipping, tripping and stumbling with subsequent striking against other object, initial encounter; Z88.0 Allergy status to penicillin; Z88.1 Allergy status to other antibiotic agents; Z79.890 Hormone replacement therapy; Z79.82 Long term (current) use of aspirin; Z79.4 Long term (current) use of insulin; Z79.899 Other long term (current) drug therapy; Z86.12 Personal history of poliomyelitis; Z86.73 Personal history of transient ischemic attack (TIA), and cerebral infarction without residual deficits
CPT/HCPCS: 70450; 73502; 73551; 73560; 76000; 80053; 82947; 82962; 83036; 83935; 84300; 85025; 85027; 85610; 85730; 86850; 86900; 86901; 93005; 96374; 96376; 97163; 97167; 97530; 97535; 99285; C1713; C1769

== ENCOUNTER → 2024-09-27 10:01 | Outpatient (REF) | payer OTHER, MEDICARE, SELFPAY ==
[2024-09-27 12:12] LABS: Hematocrit 32.1 % (37.0-47.0); Hemoglobin 9.7 g/dL (12.0-16.0); Mean Corp Hgb Conc. 30.2 g/dL (33.0-37.0); Mean Corpuscular Hgb 31.4 pg (27.0-31.0); Mean Corpuscular Volume 103.9 fL (81.0-99.0); Mean Platelet Volume 9.7 fL (7.4-10.4); Platelet Count 441 10^3/uL (130-400); Red Blood Cell Count 3.09 10^6/uL (4.20-5.40); Red Cell Dist. Width 15.3 % (11.5-14.5); White Blood Cell Count 11.1 10^3/uL (4.8-10.8)
== END ==
LOC: OLABP 10:01
PROVIDERS: ATTENDING PHYSICIAN Family Medicine
DX: S72.141D Displaced intertrochanteric fracture of right femur, subsequent encounter for closed fracture with routine healing (principal); N17.9 Acute kidney failure, unspecified; D62 Acute posthemorrhagic anemia; E03.9 Hypothyroidism, unspecified; E78.5 Hyperlipidemia, unspecified; I10 Essential (primary) hypertension
CPT/HCPCS: 36415; 85027

== ENCOUNTER → 2024-10-04 10:07 | Outpatient (REF) | payer OTHER, MEDICARE, SELFPAY ==
[2024-10-04 11:06] LABS: % Eosinophils 2.8 % (0-6); % Immature Granulocytes 0.6 % (0-0.5); % Lymphocytes 13.1 % (20.5-51.1); % Monocytes 11.9 % (1.7-9.3); % Neutrophils 70.6 % (42.2-75.2); Absolute Basophils 0.1 10^3/uL (0-0.2); Absolute Eosinophils 0.2 10^3/uL (0-0.7); Absolute Lymphocytes 0.9 10^3/uL (1.2-3.4); Absolute Monocytes 0.8 10^3/uL (0.1-0.6); Absolute Neutrophils 4.9 10^3/uL (1.4-6.5); Hematocrit 31.6 % (37.0-47.0); Hemoglobin 9.5 g/dL (12.0-16.0); Mean Corp Hgb Conc. 30.1 g/dL (33.0-37.0); Mean Corpuscular Hgb 31.4 pg (27.0-31.0); Mean Corpuscular Volume 104.3 fL (81.0-99.0); Mean Platelet Volume 9.4 fL (7.4-10.4); Nucleated Red Blood Cells % 0 %; Platelet Count 408 10^3/uL (130-400); Red Blood Cell Count 3.03 10^6/uL (4.20-5.40); Red Cell Dist. Width 15.6 % (11.5-14.5); White Blood Cell Count 6.9 10^3/uL (4.8-10.8)
[2024-10-04 11:12] LABS: Blood Urea Nitrogen 25 mg/dl (7-17); Calcium 8.2 mg/dl (8.4-10.2); Carbon Dioxide 31 mmol/L (22-30); Chloride 104 mmol/L (98-107); Glucose 83 mg/dl (70-99); Potassium 4.3 mmol/L (3.5-5.1); Sodium 141 mmol/L (135-145); eGFR > 60.00
== END ==
LOC: OLABP 10:07
PROVIDERS: ATTENDING PHYSICIAN Family Medicine
DX: S72.141D Displaced intertrochanteric fracture of right femur, subsequent encounter for closed fracture with routine healing (principal); N17.9 Acute kidney failure, unspecified; E03.9 Hypothyroidism, unspecified; E78.5 Hyperlipidemia, unspecified; I10 Essential (primary) hypertension; E10.9 Type 1 diabetes mellitus without complications; A80.9 Acute poliomyelitis, unspecified
CPT/HCPCS: 36415; 80048; 85025

== ENCOUNTER → 2024-10-21 11:21 | Outpatient (REF) | payer OTHER, MEDICARE, SELFPAY ==
[2024-10-21 12:33] LABS: % Basophils 1.6 % (0-2); % Eosinophils 5.6 % (0-6); % Immature Granulocytes 0.5 % (0-0.5); % Lymphocytes 25.5 % (20.5-51.1); % Monocytes 16.7 % (1.7-9.3); % Neutrophils 50.1 % (42.2-75.2); Absolute Basophils 0.1 10^3/uL (0-0.2); Absolute Eosinophils 0.3 10^3/uL (0-0.7); Absolute Lymphocytes 1.4 10^3/uL (1.2-3.4); Absolute Monocytes 0.9 10^3/uL (0.1-0.6); Absolute Neutrophils 2.8 10^3/uL (1.4-6.5); Hematocrit 33.2 % (37.0-47.0); Hemoglobin 10.6 g/dL (12.0-16.0); Mean Corp Hgb Conc. 31.9 g/dL (33.0-37.0); Mean Corpuscular Hgb 31.7 pg (27.0-31.0); Mean Corpuscular Volume 99.4 fL (81.0-99.0); Mean Platelet Volume 10.1 fL (7.4-10.4); Nucleated Red Blood Cells % 0 %; Platelet Count 310 10^3/uL (130-400); Red Blood Cell Count 3.34 10^6/uL (4.20-5.40); White Blood Cell Count 5.6 10^3/uL (4.8-10.8)
[2024-10-21 12:49] LABS: Blood Urea Nitrogen 28 mg/dl (7-17); Calcium 8.6 mg/dl (8.4-10.2); Carbon Dioxide 33 mmol/L (22-30); Chloride 102 mmol/L (98-107); Glucose 89 mg/dl (70-99); Potassium 4.3 mmol/L (3.5-5.1); Sodium 141 mmol/L (135-145); eGFR > 60.00
== END ==
LOC: OLABWIL 11:21
PROVIDERS: ATTENDING PHYSICIAN Family Medicine
DX: S72.141D Displaced intertrochanteric fracture of right femur, subsequent encounter for closed fracture with routine healing (principal); N17.9 Acute kidney failure, unspecified; D62 Acute posthemorrhagic anemia; E03.9 Hypothyroidism, unspecified; E78.5 Hyperlipidemia, unspecified; I10 Essential (primary) hypertension; E10.9 Type 1 diabetes mellitus without complications; A80.9 Acute poliomyelitis, unspecified
CPT/HCPCS: 36415; 80048; 85025

== ENCOUNTER → 2024-10-22 09:51 | Outpatient (REF) | payer OTHER, MEDICARE, SELFPAY ==
[2024-10-22 10:45] LABS: % Basophils 1.4 % (0-2); % Eosinophils 4.7 % (0-6); % Immature Granulocytes 0.3 % (0-0.5); % Lymphocytes 19.3 % (20.5-51.1); % Monocytes 11.7 % (1.7-9.3); % Neutrophils 62.6 % (42.2-75.2); Absolute Basophils 0.1 10^3/uL (0-0.2); Absolute Eosinophils 0.3 10^3/uL (0-0.7); Absolute Lymphocytes 1.1 10^3/uL (1.2-3.4); Absolute Monocytes 0.7 10^3/uL (0.1-0.6); Absolute Neutrophils 3.6 10^3/uL (1.4-6.5); Hematocrit 35.4 % (37.0-47.0); Hemoglobin 11.1 g/dL (12.0-16.0); Mean Corp Hgb Conc. 31.4 g/dL (33.0-37.0); Mean Corpuscular Hgb 31.4 pg (27.0-31.0); Mean Platelet Volume 9.7 fL (7.4-10.4); Nucleated Red Blood Cells % 0 %; Platelet Count 330 10^3/uL (130-400); Red Blood Cell Count 3.54 10^6/uL (4.20-5.40); Red Cell Dist. Width 13.7 % (11.5-14.5); White Blood Cell Count 5.8 10^3/uL (4.8-10.8)
[2024-10-22 10:52] LABS: Blood Urea Nitrogen 29 mg/dl (7-17); Calcium 8.9 mg/dl (8.4-10.2); Carbon Dioxide 32 mmol/L (22-30); Chloride 102 mmol/L (98-107); Glucose 88 mg/dl (70-99); Potassium 4.5 mmol/L (3.5-5.1); Sodium 140 mmol/L (135-145); eGFR > 60.00
== END ==
LOC: OLABP 09:51
PROVIDERS: ATTENDING PHYSICIAN Family Medicine
DX: S72.141D Displaced intertrochanteric fracture of right femur, subsequent encounter for closed fracture with routine healing (principal); N17.9 Acute kidney failure, unspecified; E03.9 Hypothyroidism, unspecified; E78.5 Hyperlipidemia, unspecified; I10 Essential (primary) hypertension; E10.9 Type 1 diabetes mellitus without complications; A80.9 Acute poliomyelitis, unspecified
CPT/HCPCS: 36415; 80048; 85025

== ENCOUNTER → 2024-11-10 10:35 | Outpatient (REF) | payer MEDICARE, OTHER, SELFPAY ==
[2024-11-10 11:00] LABS: % Basophils 1.2 % (0-2); % Eosinophils 4.8 % (0-6); % Immature Granulocytes 0.5 % (0-0.5); % Lymphocytes 23.7 % (20.5-51.1); % Monocytes 13.1 % (1.7-9.3); % Neutrophils 56.7 % (42.2-75.2); Absolute Basophils 0.1 10^3/uL (0-0.2); Absolute Eosinophils 0.3 10^3/uL (0-0.7); Absolute Lymphocytes 1.4 10^3/uL (1.2-3.4); Absolute Monocytes 0.8 10^3/uL (0.1-0.6); Absolute Neutrophils 3.4 10^3/uL (1.4-6.5); Hematocrit 34.3 % (37.0-47.0); Hemoglobin 11.2 g/dL (12.0-16.0); Mean Corp Hgb Conc. 32.7 g/dL (33.0-37.0); Mean Corpuscular Hgb 31.2 pg (27.0-31.0); Mean Corpuscular Volume 95.5 fL (81.0-99.0); Mean Platelet Volume 10.3 fL (7.4-10.4); Nucleated Red Blood Cells % 0 %; Platelet Count 268 10^3/uL (130-400); Red Blood Cell Count 3.59 10^6/uL (4.20-5.40)
[2024-11-10 11:24] LABS: ALT (SGPT) 19 U/L (0-35); AST (SGOT) 24 U/L (14-36); Albumin 3.1 g/dl (3.5-5.0); Alkaline Phosphatase 140 U/L (38-126); Blood Urea Nitrogen 34 mg/dl (7-17); Calcium 8.7 mg/dl (8.4-10.2); Carbon Dioxide 32 mmol/L (22-30); Chloride 103 mmol/L (98-107); Glucose 44 mg/dl (70-99); Potassium 4.3 mmol/L (3.5-5.1); Sodium 140 mmol/L (135-145); Total Bilirubin 0.3 mg/dl (0.2-1.3); Total Protein 5.4 g/dl (6.3-8.2); eGFR > 60.00
== END ==
LOC: OLABP 10:35
PROVIDERS: ATTENDING PHYSICIAN Family Medicine
DX: S72.141D Displaced intertrochanteric fracture of right femur, subsequent encounter for closed fracture with routine healing (principal); N17.9 Acute kidney failure, unspecified; D62 Acute posthemorrhagic anemia; E03.9 Hypothyroidism, unspecified; E78.5 Hyperlipidemia, unspecified; I10 Essential (primary) hypertension; E10.9 Type 1 diabetes mellitus without complications; A80.9 Acute poliomyelitis, unspecified
CPT/HCPCS: 36415; 80053; 85025

== ENCOUNTER → 2024-12-24 13:31 | Outpatient (REF) | payer MEDICARE, OTHER, SELFPAY | LOC: RAD 13:31 | PROVIDERS: ATTENDING PHYSICIAN Surgery Vascular Surgery; FAMILY PHYSICIAN Family Medicine | DX: I65.21 Occlusion and stenosis of right carotid artery (principal) | CPT/HCPCS: 93880; 93922; 93931 ==

== ENCOUNTER 2025-04-02 22:29 | Inpatient (IN) | payer MEDICARE, OTHER, SELFPAY ==
[2025-04-02] VITALS (7 sets, daily range): BP systolic 101–193; BP diastolic 48–86; BMI 39.6
[2025-04-02 18:18] LABS: Glucose - Point of Care 562 mg/dl (70-99)
--- NOTE | 2025-04-02 19:05 | ED.GENMED ---
History of Present Illness
General
Chief Complaint: Abdominal Symptoms
Source: patient and family
Exam Limitations: none
Time Seen by Provider: 04/02/25 18:25
History of Present Illness
History of Present Illness:
Patient primarily complaining of nausea headache fatigue weakness started this morning. Blood sugars have been elevated but are typically poorly controlled with a blood sugar in the 300 range. Reviewing her monitor over the last week she is
averaged over 400. She denies chest pain shortness of breath fever focal neurologic symptoms or other complaints.
Past History
Past History
ED Past Medical History: HTN, Hypercholesterolemia, IDDM and Hypothyroidism
ED Past Surgical History: Appendectomy and (X 4)
Social History
Tobacco: Non-smoker
Alcohol: None
Personal:
Living: assisted living (For rehab)
Review of Systems
Review of Systems
All Other Systems: Not applicable
Respiratory: Reports no symptoms
Cardiac: Reports no symptoms
Phy Exam
Physical Exam
Physical Exam:
GENERAL: Alert and oriented in no apparent distress
EYE: Orbits normal.
NECK: Supple, no significant adenopathy.
ENT: Pharynx without erythema
CARDIAC: Regular rate and rhythm without any obvious murmurs.
LUNGS: Clear breath sounds,normal
ABDOMEN: Soft, no distention but decreased bowel sounds. No focal tenderness. No rebound or guarding no mass or hernia
NEUROLOGICAL: Alert and oriented , grossly non-focal
SKIN: Warm and dry, no rash or lesion, no discoloration, skin intact.
MUSCULOSKELETAL: No edema,no deformity.Good color
PSYCH: Normal and appropriate interaction.
Course
Orders/Labs/Results
Orders:
Orders
04/02/25 18:33
Electrocardiogram (*1) Stat
Reason for Study: Other
Other Reason for Exam: Diabetes
EKG- Treatment ONCE
0.9% Sodium Chloride 500 ml [Nss] 500 ml IV BOLUS
Pulse Ox/cont/shift [RESP] Stat
Quantity: 1
04/02/25 18:36
B-Hydroxybutyrate Urgent
Complete Blood Count/With Diff Urgent
Comprehensive Metabolic Panel Urgent
Lactic Acid Urgent
Troponin I Urgent
04/02/25 18:39
CT Abd/Pel (IV only)-DH only Urgent
Comment:
Reason For Exam: Recurrent vomiting. Elevated blood sugar
CT Head W/o Iv Contrast Urgent
Comment:
Reason For Exam: Headache/nausea
04/02/25 19:12
Add On- LAB Urgent
Tests Added?: tsh reflex t4
04/02/25 19:55
Free T4 Urgent
TSH Reflex To Free T4 Urgent
Comment: ADD ON
Venous Blood Gas Urgent
%Oxygen/Room Air: 21
04/02/25 20:07
Ondansetron Injectable [Zofran] 4 mg IV NOW STA
04/02/25 20:43
0.9% Sodium Chloride 1000 ml [Nss] 1,000 ml IV BOLUS
Insulin Human Regular [Novolin R] 7 units IV NOW STA
04/02/25 20:44
Bedside Glucose- Treatment Q1H
IV Insert/Care/Rem.- Treatment PRN
04/02/25 21:57
Admit/Transfer Patient As Directed
Co-Sign Provider:
Level of Care: Inpatient admission
Assign to:: ICU
Physician / Group: [email or web address]
Diagnosis: DKA complicated by HAG MA @23
Reason for Hospitalization: DKA complicated by HAG MA @23
Expected length of stay greater than two midnights?: Yes
ELOS- Estimated Length of Stay in days: 4
I certify the patient meets the requirements for IP care: Yes
04/02/25 21:59
Code Status As Directed
Resuscitation Status: Full Code
04/02/25 22:11
Straight cath- Treatment ONCE
04/02/25 22:16
Reg Insulin 100 Units/100 ml [Novolin R Insulin Infusion] 100 units in 100 ml IV NOW
04/02/25 22:49
Basic Metabolic Panel Q2H
Urinalysis Reflex To Culture Urgent
Date Specimen was Collected: 04/02/25
Time Specimen was Collected: 22:43
Blood Culture Q30M
CELENA Source: Blood/Venous
Specimen Description:
Blood Culture Q30M
CELENA Source: Blood/Venous
Specimen Description:
04/02/25 23:52
0.9% Sodium Chloride 1000 ml [Nss] 1,000 ml IV 200 mls/hr
Sennosides [Senokot] 17.2 mg PO BIDPRN PRN constipation
04/02/25 23:52
Diabetes Management by Nurse Practitioner Routine
Consulting Provider: Evie Avila
Was provider already notified?: No
Reason for Consult: Insulin Management
Urinalysis Reflex To Culture Urgent
Activity As Directed
Activity Level: With Assistance
Bedside Glucose Monitoring As Directed
Frequency: Other frequency
Other frequency: per DKA protocol
Intake/ Output As Directed
Frequency: Per unit guidelines
Notify MD As Directed
Notify physician if: Nurse to contact provider when glucose reaches 250 to obtain orders for D5 0.45 NaCl
Vital Signs As Directed
Frequency: Per unit guidelines
Weight As Directed
Frequency: Daily
DX Deep Vein Thrombosis Video Routine
04/03/25 00:00
Basic Metabolic Panel Q3H
Potassium Q2
Comment: report result to provider till Potassium >/= 3.3 to 5.3 mEq/L
04/03/25 00:45
Basic Metabolic Panel Q2H
04/03/25 02:00
Basic Metabolic Panel Q3H
04/03/25 04:00
Potassium Q2
Comment: report result to provider till Potassium >/= 3.3 to 5.3 mEq/L
04/03/25 Breakfast
2000 calorie (17 carb) Diabetic
Basic Metabolic Panel Q3H
Complete Blood Count/No Diff IN AM
Glycohemoglobin (HgbA1c) IN AM
Levothyroxine [Synthroid] 112 mcg PO DAILY @ 0600
04/03/25 08:00
Basic Metabolic Panel Q3H
Aspirin Low Dose EC [Aspir Low (Enteric Coated)] 81 mg PO DAILY
Atorvastatin [Lipitor] 80 mg PO DAILY
Duloxetine Delayed Release [Cymbalta Delayed Release] 40 mg PO DAILY
Polyethylene Glycol Powder [Miralax] 17 grams PO DAILY
04/03/25 10:00
Potassium Q2
Comment: report result to provider till Potassium >/= 3.3 to 5.3 mEq/L
04/03/25 12:00
Potassium Q2
Comment: report result to provider till Potassium >/= 3.3 to 5.3 mEq/L
04/03/25 14:00
Potassium Q2
Comment: report result to provider till Potassium >/= 3.3 to 5.3 mEq/L
04/03/25 18:00
Enoxaparin Sodium [Lovenox] 40 mg SC QPM
Abnormal Lab Results
04/02/25 04/02/25 04/02/25
18:17 18:36 19:55
WBC 13.5 H 10^3/uL
(4.8-10.8)
MCH 31.1 H pg
(27.0-31.0)
Abs Immat Gran (auto) 0.1 H 10^3/uL
(0-0.05)
Absolute Neuts (auto) 12.3 H 10^3/uL
(1.4-6.5)
Absolute Lymphs (auto) 0.6 L 10^3/uL
(1.2-3.4)
Immature Gran % 0.7 H %
(0-0.5)
Neutrophils % 90.9 H %
(42.2-75.2)
Lymphocytes % 4.4 L %
(20.5-51.1)
VBG pH 7.13 L*
(7.32-7.43)
VBG pO2 62 H mmHg
(30-50)
VBG HCO3 11.6 L mmol/L
(22-27)
Sodium 134 L mmol/L
(135-145)
Potassium 5.6 H mmol/L
(3.5-5.1)
Carbon Dioxide 9 L* mmol/L
(22-30)
BUN 27 H mg/dl
(7-17)
Glucose 591 H* mg/dl
(70-99)
Lactic Acid 2.2 H mmol/L
(0.7-2.0)
Calcium 10.6 H mg/dl
(8.4-10.2)
Total Bilirubin 1.4 H mg/dl
(0.2-1.3)
Alkaline Phosphatase 147 H U/L
(38-126)
TSH (Reflex) 14.40 H uIU/ml
(0.47-4.68)
B-Hydroxybutyrate 8.09 H mmol/L
(0.02-0.27)
POC Glucose 562 H* mg/dl
(70-99)
04/02/25
22:19
WBC
MCH
Abs Immat Gran (auto)
Absolute Neuts (auto)
Absolute Lymphs (auto)
Immature Gran %
Neutrophils %
Lymphocytes %
VBG pH
VBG pO2
VBG HCO3
Sodium
Potassium
Carbon Dioxide
BUN
Glucose
Lactic Acid
Calcium
Total Bilirubin
Alkaline Phosphatase
TSH (Reflex)
B-Hydroxybutyrate
POC Glucose 486 H* mg/dl
(70-99)
04/02/25 18:36
04/02/25 18:36
Vital Signs
Initial and Last Documented VS:
Initial Vital Signs
Pulse Resp Pulse Ox
68 18 94
04/02/25 18:17 04/02/25 18:17 04/02/25 18:17
Last Documented Vital Signs
Temp Pulse Resp BP Pulse Ox
98 F 148 21 113/69 94
04/02/25 21:02 04/02/25 23:37 04/02/25 23:36 04/02/25 23:37 04/02/25 19:07
MDM/Problems Addressed
Differential Diagnosis Includes:
Patient's primary complaint seems to be fatigue weakness headache and nausea. Highly doubt subarachnoid hemorrhage but CT scan will be done. Neuroexam is nonfocal. Doubt acute abdominal process as the abdomen is soft and nontender there is no
significant distention however she does have hypoactive bowel sounds. Lipase LFTs ordered. Will also check CT scan. Patient has significant hyperglycemia whether this is a primary or secondary event. Check beta hydroxybutyrate electrolytes
venous blood gas bicarb. IV fluids currently running.
*Radiology
Radiology exam reviewed: radiology read reviewed (No acute findings on CT of the abdomen pelvis and head to explain patient's symptoms. Some motion artifact.)
*Pulse Oximetry
SaO2: 94
Oxygen Mode of Delivery: Room air
Patient hypoxic: no
*EKG
Interpreted by ED Provider?: Yes
Interpretation: abnormal
Comparison EKG: changes noted
Heart Rate: 115
Rate: tachycardiac
Rhythm: sinus and PAC's
[place]: normal axis
Interval: normal interval
QRS Pattern: normal QRS
Ischemia: no ischemia
*Fire Chief'S Aide Interpretation
Rate: tachycardiac
Interpretation: abnormal
Heart Rate: 116
Rhythm: sinus
*Critical Care Note
Total Time (30-74mins, 75-104mins- exclusive of procedures): 50
Update Note
Update Note:
2049... Patient in DKA. Fluids ordered first. Nurse aware. Awaiting CT scans which are unlikely to be positive. Family updated.
2214.... Patient is been rechecked multiple times. Is mildly encephalopathic likely from her underlying dementia and from her metabolic encephalopathy from her DKA. Nothing positive by CT scans. Cardiac testing negative. Await urinalysis.
Fluids still going in but will start insulin.
2229... Radiology evaluated the CT here and is suspicious for stercoral colitis. Will order antibiotics
Prior to going upstairs patient went into a tachycardic irregular rhythm in the 190s. Atrial fibrillation. Was given a small dose of Cardizem with resolution back to a normal sinus tachycardia at 110.
ED Attending Note
-
Portions of this chart may have been created with voice recognition software.� Occasional wrong word or��sound alike� substitutions may have occurred due to the inherent limitations of voice recognition software.
Discharge Plan
Departure
Patient Disposition: Admit
Date of Disposition: 04/02/25
Time of Disposition: 21:37
Presentation/result/management discussed w/ accepting MD/DO: Hospitalist
Discharge Problem:
Diabetic ketoacidosis, Possible stercoral colitis, Paroxysmal atrial fibrillation, Metabolic encephalopathy
Interventions
Interventions:
*Risk Screen - Suicide Last Done: 04/02/25 20:34
*General Assessment Last Done: 04/02/25 20:34
*Neglect/Abuse Screening Last Done: 04/02/25 20:34
*ED- Fall Risk Assessment Last Done: 04/02/25 20:34
*ED COVID-19 Vaccine History Last Done: 04/02/25 20:34
*Nursing Disposition Last Done: 04/02/25 23:45
QN-Pcgwqi-Dsyqyfngqi Assessment Last Done: 04/02/25 20:34
Discharge Date and Time
Discharge Date/Time: 04/02/25 23:46
[2025-04-02] MEDS: NSS 500 IV (19:55)
[2025-04-02 20:05] LABS: Venous Blood Gas B.E. -16.6 mmol/L (-4 to +4); Venous Blood Gas O2 Sat % 90.6 %
[2025-04-02 20:05] LABS: Hematocrit 43.0 % (37.0-47.0); Hemoglobin 14.2 g/dL (12.0-16.0); Mean Corp Hgb Conc. 33.0 g/dL (33.0-37.0); Mean Corpuscular Volume 94.3 fL (81.0-99.0); Nucleated Red Blood Cells % 0 %; Platelet Count 332 10^3/uL (130-400); Red Cell Dist. Width 13.1 % (11.5-14.5)
[2025-04-02] MEDS: ZOFRAN 4 MG IV (20:15)
[2025-04-02 20:29] LABS: ALT (SGPT) 18 U/L (0-35); AST (SGOT) 19 U/L (14-36); Albumin 4.9 g/dl (3.5-5.0); Alkaline Phosphatase 147 U/L (38-126); Blood Urea Nitrogen 27 mg/dl (7-17); Calcium 10.6 mg/dl (8.4-10.2); Carbon Dioxide 9 mmol/L (22-30); Chloride 102 mmol/L (98-107); Estimated Creatinine Clearance 60 ml/min; Glucose 591 mg/dl (70-99); Potassium 5.6 mmol/L (3.5-5.1); Sodium 134 mmol/L (135-145); Total Protein 7.7 g/dl (6.3-8.2); eGFR > 60.00
[2025-04-02 20:30] LABS: Troponin I < 0.012 ng/ml
--- NOTE | 2025-04-02 21:06 | EDRN ---
Dr Briggs would like patient to receive IVF bolus before starting insulin gtt.
--- NOTE | 2025-04-02 21:44 | HPS.HSE ---
Addendum entered and electronically signed by Jalil Medrano MD 04/02/25 22:37:
Prelim CT AP suspected stercoral colitis
Prelim NEG HCT
Allergic to Amoxicillin
- thus cancel Zosyn
- start IV Aztreonam and IV Flagyl
Original Note:
Family Physician
-
Family Physician: NOT KNOW UNKNOWN - PT DOES
Chief Complaint
-
acute nausea headache fatigue weakness
History of Present Illness
HPI
80F HX IDDM, Hypothyroid, HTN , presrved renal function pw
- acute nausea headache fatigue weakness started this morning.
- Blood sugars have been elevated but are typically poorly controlled with a blood sugar in the 300 range.
- monitor over the last week she is averaged over 400.
ROS
- denies chest pain shortness of breath fever focal neurologic symptoms or other complaints.
Medical History
Past Medical History
Past Medical History: Reports Other ( HTN, Hypercholesterolemia, IDDM and Hypothyroidism)
Past Surgical History: Reports Other ( Appendectomy and (X 4))
Social History
Unable to obtain full social history at this time due to: Ac[employer]
Tobacco: Non-smoker
Alcohol: None
Drug: None
Personal:
Living: Assisted Living
Family History
Family History: Not pertinent
Allergies / Home Medications
Allergies reflects when Allergies were last updated in [facility].
Home Medications with original date entered in [facility]
Allergy/Medication List:
Allergies
Allergy/AdvReac Type Severity Reaction Status Date / Time
adhesive tape Allergy Unknown Verified 09/16/24 08:18
amoxicillin Allergy Unknown- Verified 09/16/24 09:53
tolerated
cefazolin
in the past
bee venom protein (honey bee) Allergy Unknown Verified 09/16/24 08:18
minocycline [From Minocin] Allergy Unknown Verified 09/16/24 08:18
Sulfa (Sulfonamide Allergy Unknown Verified 09/16/24 08:18
Antibiotics)
Home Medications
aspirin 81 mg tablet,delayed release 81 mg PO DAILY Blood clot prevention/tx 06/07/22
atorvastatin 80 mg tablet (Lipitor) 80 mg PO DAILY High cholesterol 06/07/22
cholecalciferol (vitamin D3) 50 mcg (2,000 unit) capsule (Vitamin D3) 4,000 mcg PO HS Supplement 06/07/22
insulin glargine 100 unit/mL (3 mL) subcutaneous pen (Lantus Solostar U-100 Insulin) 24 unit SC DAILY Diabetes 06/07/22
insulin lispro 100 unit/mL subcutaneous pen (Humalog KwikPen (U-100) Insulin) 3 unit SC AC Diabetes 06/07/22
lisinopril 10 mg tablet 10 mg PO HS Blood pressure 06/07/22
rcrgyjav-uxhtvpcj-jvsu 8 mg-folic ac 400 mcg-vit K 10 mcg chew tablet (Centrum Chewables) 2 tab PO DAILY Supplement 06/07/22
vit C 250 mg-vit E 90 mg-zinc 40 mg-copper 1 ek-oqwcpw-dnelno capsule (PreserVision AREDS-2) 1 tab PO BID Supplement 06/07/22
calcium carbonate (Calcium 500) 1,000 mg PO DAILY Supplement 09/16/24
duloxetine 20 mg capsule,delayed release (Cymbalta) 40 mg PO DAILY Mental Health 09/16/24
ibuprofen 200 mg tablet (Advil) 200 mg PO DAILYPRN PRN MILD PAIN 09/16/24
levothyroxine 112 mcg tablet (Synthroid) 112 mcg PO DAILY Thyroid 09/16/24
polyethylene glycol 3350 17 gram oral powder packet (Miralax) 17 g PO DAILYPRN PRN CONSTIPATION 09/16/24
Review of Systems
-
Constitutional: Reports See HPI
EENT: Reports No Symptoms
Respiratory: Reports No Symptoms
Cardiac: Reports No Symptoms
Abdomen/GI: Reports See HPI, Nausea and Vomiting
: Reports No Symptoms
Musculoskeletal: Reports No Symptoms
Skin: Reports No Symptoms
Neurological: Reports No Symptoms
Hematologic/Lymphatic: Reports No Symptoms
Psych: Reports No Symptoms
Physical Exam
Vital Signs
Vital Signs
Temp Pulse Resp BP Pulse Ox
98 F 117 16 164/84 94
04/02/25 21:02 04/02/25 21:02 04/02/25 21:02 04/02/25 20:46 04/02/25 19:07
Physical Exam
General: Well Developed, Well Nourished, Morbidly Obese and Other (lethargic )
HEENT: NormoCephalic, Moist mucous membranes and Atraumatic
Respiratory: Clear
Cardiac: S1/S2 and Regular Rhythm; No Murmur or Rub
GI: Soft, Non Tender, Non Distended and Normal Bowel Sounds; No Organomegaly
Rectal: Deferred by Provider
Genito-urinary: Deferred by me
Musculoskeletal: No Clubbing, No Cyanosis and No Edema
Skin: No Rash
Neuro: Nonfocal/grossly intact and Other (lethargic ); No Alert
Laboratory Results
-
04/02/25 18:36
Laboratory Results
Lactic Acid 2.2 mmol/L (0.7-2.0) H 04/02/25 18:36
Total Bilirubin 1.4 mg/dl (0.2-1.3) H 04/02/25 18:36
AST 19 U/L (14-36) 04/02/25 18:36
ALT 18 U/L (0-35) 04/02/25 18:36
Alkaline Phosphatase 147 U/L (38-126) H 04/02/25 18:36
Troponin I < 0.012 ng/ml 04/02/25 18:36
Data Reviewed
-
CT Scan: Other (pending HCT and CT AP )
Lab Data: Labs Reviewed by me
Old Records: Reviewed
Impression/Plan
-
Vital Signs
Temp Pulse Resp BP Pulse Ox
98 F 117 16 164/84 94
04/02/25 21:02 04/02/25 21:02 04/02/25 21:02 04/02/25 20:46 04/02/25 19:07
Laboratory Tests
04/02/25 04/02/25
18:36 19:55
WBC 13.5 H
Hgb 14.2
Plt Count 332
VBG pH 7.13 L*
VBG pCO2 35
VBG pO2 62 H
VBG HCO3 11.6 L
Sodium 134 L
Potassium 5.6 H
Chloride 102
Carbon Dioxide 9 L*
BUN 27 H
Creatinine 0.8
eGFR > 60.00
Glucose 591 H*
Lactic Acid 2.2 H
Calcium 10.6 H
Total Bilirubin 1.4 H
Alkaline Phosphatase 147 H
Troponin I < 0.012
TSH (Reflex) 14.40 H
Free T4 1.10
B-Hydroxybutyrate 8.[address] pending
CT AP pending
Last hospitalist admission: 09/16/24 - 09/23/24
Discharge Diagnosis/Procedures:
Comminuted intertrochanteric fracture of the right proximal femur.
s/p Intramedullary fixation, right proximal femur by Dr Pascual Peck
ASSESSMENT & PLAN
Pending Rx reconciliation
DKA complicated by HAG MA @23 - s/p 1 L NS
Associated lethargic TME
Associated Severe hyperkalemia
IDDM on basal bolus Lantus and aspart regime
HX Poorly controlled DM- last A1C of record 10.5
- Pending UA
- Pending CXR
- NEG TPNI and denied CP
- Fluid resuscitation with IV NS
- cont current Insulin gtt
- DKA protocol
- await CT AP
- await HCT
Pending UA and pending CXR. CT C/A/P
- cannot rule out acute infective pathology
- BCx sent
- empiric IV Zosyn
- f/u and above w/u
Benign Hypertension
Preserved renal function
- Hold of Lisinopril for now
Hyperlipidemia
- on ASA
- on Statin
Hypothyroidism
Elevated TSH with nl FT$c/w sick euthyroid due to DKA
- cont current dose Synthroid
- would not repeat TFTs for next 4 weeks
DVT Px: LMWH
Full code
ICU
Total Critical Care Time__60___ minutes. I was immediately available to the patient and staff. I personally examined, reviewed labs, diagnostic images/reports, interpretations, treatment plans, discussed patient care with other providers and
family or caregivers (if patient is unable to make decisions), entered orders as appropriate and documented the medical record.
[2025-04-02] MEDS: NSS 1000 IV ×2 (22:00→23:11)
[2025-04-02 22:20] LABS: Glucose - Point of Care 486 mg/dl (70-99)
[2025-04-02] MEDS: NOVOLIN R 7 UNITS IV (22:23)
[2025-04-02] MEDS: NOVOLIN R INSULIN INFUSION 100 IV (22:28)
[2025-04-02 23:01] LABS: Urine Character Clear (Clear)
[2025-04-02] MEDS: AZACTAM 1000 MG IV (23:03)
[2025-04-02 23:12] LABS: Urine Red Blood Cell 0-2 /HPF (0-2); Urine White Cell 0-2 /HPF (0-5)
[2025-04-02 23:16] LABS: Blood Urea Nitrogen 21 mg/dl (7-17); Calcium 7.3 mg/dl (8.4-10.2); Carbon Dioxide < 5 mmol/L (22-30); Chloride 117 mmol/L (98-107); Estimated Creatinine Clearance 80 ml/min; Glucose 359 mg/dl (70-99); Sodium 139 mmol/L (135-145); eGFR > 60.00
[2025-04-02 23:33] LABS: Glucose - Point of Care 475 mg/dl (70-99)
[2025-04-02] MEDS: CARDIZEM 5 MG IV (23:37)
[2025-04-03] VITALS (24 sets, daily range): BP systolic 89–135; BP diastolic 33–108; BMI 36.6
[2025-04-03] MEDS: FLAGYL 500 MG 100 IV ×4 (00:15→23:03)
[2025-04-03 00:16] LABS: Glucose - Point of Care 328 mg/dl (70-99)
[2025-04-03] MEDS: FLAGYL 500 MG IV (00:16)
[2025-04-03] MEDS: NSS 1000 IV (00:16)
--- NOTE | 2025-04-03 00:30 | PTCARENOTE ---
Received pt. from ED. Pt. admitted with DKA and sepsis. Insulin gtt titrated per DKA protocol. Ordered antibiotics administered. Pt. is confused and forgetful, but arousable. Denies pain/discomfort. Afebrile. Pt. noted to be having runs of SVT
higher than 150 in ED. IV Cardizem given by previous RN, see MAR. IV fluids currently infusing, pt. heart rhythm currently sinus tachy 110s. Pt. is on room air. Lungs sound diminished. NPO. Purewick drainage device in place. Skin as documented.
Discussed plan of care with patient and family at bedside. Vital signs stable at this time.
--- NOTE | 2025-04-03 01:02 | W.PN.SEPSIS ---
Sepsis
Vital Signs
Temp Pulse Resp BP Pulse Ox
98 F 148 21 113/69 94
04/02/25 21:02 04/02/25 23:37 04/02/25 23:36 04/02/25 23:37 04/02/25 19:07
Physical Exam
Physical Exam:
A focused exam was performed after fluid resuscitation.
Capillary Refill
Bilateral Upper Extremity:
Kumar Time: Less than 3 sec
Bilateral Lower Extremity:
Kumar Time: Less than 3 sec
Pulse Evaluation
Bilateral Radial:
Pulse Evaluation: Present
Bilateral Dorsalis Pedis:
Pulse Evaluation: Present
[2025-04-03 01:14] LABS: Glucose - Point of Care 260 mg/dl (70-99)
[2025-04-03 01:25] LABS: Blood Urea Nitrogen 23 mg/dl (7-17); Calcium 9.3 mg/dl (8.4-10.2); Carbon Dioxide 7 mmol/L (22-30); Chloride 114 mmol/L (98-107); Estimated Creatinine Clearance 66 ml/min; Glucose 256 mg/dl (70-99); Magnesium 1.8 mg/dl (1.6-2.3); Potassium 4.1 mmol/L (3.5-5.1); Sodium 141 mmol/L (135-145); eGFR > 60.00
[2025-04-03 02:10] LABS: Glucose - Point of Care 194 mg/dl (70-99)
[2025-04-03] MEDS: D5/0.45%NSS with KCL 20 MEQ 1000 IV ×2 (02:56→10:31)
[2025-04-03 03:12] LABS: Glucose - Point of Care 150 mg/dl (70-99)
[2025-04-03 04:16] LABS: Glucose - Point of Care 157 mg/dl (70-99)
[2025-04-03 04:35] LABS: Venous Blood Gas B.E. -11.5 mmol/L (-4 to +4); Venous Blood Gas O2 Sat % 99.3 %
[2025-04-03 04:45] LABS: Hematocrit 36.1 % (37.0-47.0); Hemoglobin 12.1 g/dL (12.0-16.0); Mean Corp Hgb Conc. 33.5 g/dL (33.0-37.0); Mean Corpuscular Volume 91.9 fL (81.0-99.0); Platelet Count 325 10^3/uL (130-400); Red Cell Dist. Width 13.0 % (11.5-14.5)
[2025-04-03 04:55] LABS: INR 1.01; PT 13.6 Sec (11.4-14.6)
[2025-04-03] MEDS: AZACTAM 1000 MG IV (05:07)
[2025-04-03] MEDS: STERILE WATER FOR INJECTION 10 ML IV ×4 (05:07→23:03)
[2025-04-03] MEDS: SYNTHROID PO (05:11)
[2025-04-03 05:13] LABS: Blood Urea Nitrogen 25 mg/dl (7-17); Calcium 9.3 mg/dl (8.4-10.2); Carbon Dioxide 12 mmol/L (22-30); Chloride 115 mmol/L (98-107); Estimated Creatinine Clearance 66 ml/min; Glucose 166 mg/dl (70-99); Magnesium 1.9 mg/dl (1.6-2.3); Potassium 4.6 mmol/L (3.5-5.1); Sodium 138 mmol/L (135-145); eGFR > 60.00
[2025-04-03 05:15] LABS: Glucose - Point of Care 171 mg/dl (70-99)
[2025-04-03 05:17] LABS: APTT 21.6 Sec (23.4-35.0)
[2025-04-03 06:09] LABS: Glucose - Point of Care 188 mg/dl (70-99)
--- NOTE | 2025-04-03 07:13 | W.PN.HOSP.TC ---
Addendum entered and electronically signed by Zoila Eric MD 04/03/25 18:54:
LATE ENTRY
I saw and evaluated the patient independently. I reviewed the resident�s note and agree with findings and plan as documented by Dr. Jay.
GENERAL: well developed, well nourished, female in no apparent distress--sleepy, still confused when opens eyes
HEENT: NC/AT--no O2 requirements
HEART: regular rate and rhythm, +S1, +S2
LUNGS : clear to auscultation bilaterally
ABDOM: soft, nontender, nondistended, + bowel sounds
EXT: no cyanosis, clubbing, or edema
NEUROLOGIC: confused
Diabetic ketoacidosis--AGAP 23 on admission--closed x2 after IV insulin and now transitioned to SC insulin with meals and long acting--gave 20 units Lantus (pt takes 35 at home) earlier to get off drip--give 8 units SC tonight to hold her until
lantus can be restarted at appropriate time tomorrow evening --cont diabetic diet--add SSI and HGB A1C 11
Leukocytosis--possibly sepsis due to stercoral colitis but she meets SIRS from DKA alone--CT scan shows possible stercoral colitis--cont cefepime/flagyl --UA negative, blood cultures pending
Lactic acidosis-- Resolved--Patient had a lactic acid level of 2.2 on admission and hit a peak at 3.3. Trended down to 1.5 on 04/03/2025
Insulin-dependent diabetes mellitus--HGB A1C 11--poor control--daughters report not sure if patient is getting appropriate dosing and with her short term memory loss, is now giving her the shots...await DM BEHAVIORAL INTERVENTIONIST input
Essential hypertension--restart meds when clinically able
Hypothyroidism--TSH 14--may need adjustment to Synthroid--It could be possible that the patient is suffering from sick euthyroid syndrome secondary to DKA. Transient TSH elevation is generally a nonspecific response to acute illness or recovery and
is not an indication for thyroid hormone medication adjustments. It would be anglin to recheck TSH following the resolution of her DKA.
Somnolence/altered mental status--Head CT shows no acute intracranial abnormality--Altered mental status likely due to DKA and mentation improving as anion gap closed
Hyperlipidemia--Continue statin and aspirin
DVT proph
CODE STATUS--full code
Original Note:
Today's Communication/Plan
-
Anion gap closed
Patient switched to normal sliding scale insulin
Mentation improving as anion gap closed
Continue antibiotics
Follow cultures
Assessment / Plan
Assessment / Plan
HPI: Patient is a 80-year-old female with a history of insulin dependent diabetes melitis, hypertension, preserved renal function presented to the emergency department with acute nausea, fatigue, weakness that started the morning of her
presentation. Her blood sugars have been elevated and are typically poorly controlled with a blood sugar around the 300 range. Over the last week her blood sugars averaged are over 400. In the emergency department the patient denied any chest
pain, shortness of breath, fever, focal neurologic symptoms or other complaints. Neuroexam was nonfocal. Lipase and LFTs were ordered down in the emergency department. A CT scan of the abdomen was conducted and was nonfocal. CT of the head
conducted down to the emergency department showed no acute intracranial abnormality. On arrival to the emergency department, the patient's blood glucose was 591, serum bicarbonate level was 9, patient was hyponatremic at 134, anion gap calculated
to be 23, there were elevated urine ketones present at 3+, and the patient had leukocytosis with a white blood cell count of 13.5. The patient was admitted to the ICU for diabetic ketoacidosis with an anion gap of 23.
Assessment and plan:
-Diabetic ketoacidosis: Unresolved -improving
Patient lethargic and somnolent
Patient's blood glucose was 591, serum bicarb level was 9 patient was hyponatremic at 134, anion gap calculated to be 23, there were elevated urine ketones present at 3+
Anion gap closed on 04/03/2025. Most recent anion gap calculated to be 3.0 at 12:17 on 04/03/2025
- Leukocytosis: Unresolved
Patient had a white blood cell count of 13.5 in the emergency department
White blood cells currently 14.9 on 04/03/2025
Urine analysis results pending
Blood culture sent
CT of the abdomen and pelvis showed mild rectal stool burden with a mild perirectal stranding suggestive of stercoral colitis
IV cefepime and Flagyl given
-Lactic acidosis: Resolved
Patient had a lactic acid level of 2.2 on admission and hit a peak at 3.3. Trended down to 1.5 on 04/03/2025
Insulin-dependent diabetes mellitus: Monitoring
Patient blood glucose was 591 at admission and is 161 on 04/03/2025
Hemoglobin A1c found to be 11 -poor glycemic control
Patient currently on regular sliding scale insulin
Essential hypertension: Stable�monitoring
Holding antihypertensive medications until blood pressure is more stable
Hypothyroidism: Monitoring
Patient had a TSH of 14.4
Free T4 is 1.1
It could be possible that the patient is suffering from sick euthyroid syndrome secondary to DKA. Transient TSH elevation is generally a nonspecific response to acute illness or recovery and is not an indication for thyroid hormone medication
adjustments. It would be anglin to recheck TSH following the resolution of her DKA.
Recheck TSH in the outpatient setting
-Somnolence/altered mental status: Monitoring�improving
Head CT shows no acute intracranial abnormality
Altered mental status likely due to DKA and mentation improving as anion gap closed
-Hyperlipidemia: Stable
Continue statin and aspirin
DVT prophylaxis: LMWH
FULL CODE STATUS
Imaging:
- Abdomen/pelvis CT conducted on 04/02/2025:
Mild rectal stool burden with mild perirectal stranding suggestive of stercoral colitis.
Mild compression deformity of the T11 vertebral body which is likely chronic although there is concern for acute fracture and MRI may be considered for further evaluation.
Small hiatal hernia.
The endometrium measures up to 7 mm. Consider nonemergent pelvic ultrasound for further evaluation.
- Head CT conducted on 04/02/2025:
No acute intracranial abnormality noted.
- Chest x-ray conducted on 04/03/2025:
Minimal bibasilar atelectasis, more pronounced on the left.
Anticipated Discharge: 24 - 48 hours
Subjective/Interval History
-
Date of Service: April 03, 2025
Met with the patient at the bedside. She was somnolent and difficult to arouse. She woke up after persistent talking to and nudging. Pleasant but very tired. Drifting in and out of sleep while being talked to.
Objective Data
-
Labs:
Laboratory Results
04/02/25 04/02/25 04/02/25
18:36 22:41 22:49
WBC 13.5 H
Hgb 14.2
Hct 43.0
Plt Count 332
PT
INR
APTT
Sodium 134 L Cancelled 139
Potassium 5.6 H Cancelled
Chloride 102 Cancelled 117 H
Carbon Dioxide 9 L* Cancelled < 5 L*
BUN 27 H Cancelled 21 H
Creatinine 0.8 Cancelled 0.5 L
Glucose 591 H* Cancelled 359 H
Calcium 10.6 H Cancelled 7.3 L D
Total Bilirubin 1.4 H
AST 19
ALT 18
Alkaline Phosphatase 147 H
04/03/25 04/03/25 04/03/25
00:00 00:45 00:51
WBC
Hgb
Hct
Plt Count
PT
INR
APTT
Sodium Cancelled 141
Potassium Cancelled Cancelled 4.1 D
Chloride Cancelled 114 H
Carbon Dioxide Cancelled 7 L*
BUN Cancelled 23 H
Creatinine Cancelled 0.7
Glucose Cancelled 256 H
Calcium Cancelled 9.3 D
Total Bilirubin
AST
ALT
Alkaline Phosphatase
04/03/25 04/03/25 04/03/25
02:00 04:00 04:29
WBC 14.9 H
Hgb 12.1
Hct 36.1 L
Plt Count 325
PT 13.6
INR 1.01
APTT 21.6 L
Sodium Cancelled 138
Potassium Cancelled Cancelled 4.6
Chloride Cancelled 115 H
Carbon Dioxide Cancelled 12 L*
BUN Cancelled 25 H
Creatinine Cancelled 0.7
Glucose Cancelled 166 H
Calcium Cancelled 9.3
Total Bilirubin
AST
ALT
Alkaline Phosphatase
04/03/25 04/03/25 04/03/25
06:00 08:00 08:00
WBC
Hgb
Hct
Plt Count
PT
INR
APTT
Sodium Cancelled Cancelled Pending
Potassium Cancelled Cancelled
Chloride Cancelled
Carbon Dioxide Cancelled
BUN Cancelled
Creatinine Cancelled
Glucose Cancelled
Calcium Cancelled
Total Bilirubin
AST
ALT
Alkaline Phosphatase
04/03/25 04/03/25 04/03/25
08:00 08:00 08:00
WBC
Hgb
Hct
Plt Count
PT
INR
APTT
Sodium
Potassium Pending
Chloride Cancelled Pending
Carbon Dioxide Cancelled Pending
BUN Cancelled
Creatinine
Glucose
Calcium
Total Bilirubin
AST
ALT
Alkaline Phosphatase
04/03/25 04/03/25 04/03/25
08:00 08:00 08:00
WBC
Hgb
Hct
Plt Count
PT
INR
APTT
Sodium
Potassium
Chloride
Carbon Dioxide
BUN Pending
Creatinine Cancelled Pending
Glucose Cancelled Pending
Calcium Cancelled
Total Bilirubin
AST
ALT
Alkaline Phosphatase
04/03/25 04/03/25 04/03/25
08:00 10:00 12:00
WBC
Hgb
Hct
Plt Count
PT
INR
APTT
Sodium Pending
Potassium Cancelled Cancelled
Chloride
Carbon Dioxide
BUN
Creatinine
Glucose
Calcium Pending
Total Bilirubin
AST
ALT
Alkaline Phosphatase
04/03/25 04/03/25 04/03/25
12:00 14:00 16:00
WBC
Hgb
Hct
Plt Count
PT
INR
APTT
Sodium Pending
Potassium Pending Cancelled Pending
Chloride Pending Pending
Carbon Dioxide Pending Pending
BUN Pending Pending
Creatinine Pending Pending
Glucose Pending Pending
Calcium Pending Pending
Total Bilirubin
AST
ALT
Alkaline Phosphatase
04/03/25
20:00
WBC
Hgb
Hct
Plt Count
PT
INR
APTT
Sodium Pending
Potassium Pending
Chloride Pending
Carbon Dioxide Pending
BUN Pending
Creatinine Pending
Glucose Pending
Calcium Pending
Total Bilirubin
AST
ALT
Alkaline Phosphatase
Vital Signs:
Vital Signs
Temp Pulse Resp BP Pulse Ox
98.2 F 93 16 110/77 97
04/03/25 04:00 04/03/25 06:01 04/03/25 06:01 04/03/25 06:01 04/03/25 06:01
I&O
04/02/25 04/03/25 04/04/25
06:59 06:59 06:59
Intake Total 1166 / 1166
Output Total 100 / 100
Balance 1066 / 1066
Review of Systems
-
Unable to obtain full review of systems at this time due to: Other (Somnolence)
Physical Exam
-
General: Well Developed, Well Nourished, No Apparent Distress and Comfortable
HEENT: Normocephalic, Atraumatic and Moist Mucous Membranes
Respiratory: Clear to Auscultation; Negative Wheezes, Rales, Rhonchi or Crackles
Cardiac: Regular Rhythm and S1/S2; Negative Murmur or Rub
Breast: Deferred by me
GI: Soft, Nondistended and Normal Bowel Sounds
Rectal: Deferred by Provider
Musculoskeletal: No Clubbing, No Cyanosis and No Edema (2+ pedal edema affecting the right leg)
Skin: Warm and Dry; Negative Rash, Ulcers or Lesions
Neuro: Awake, Alert, Oriented and AO x 3
Psych: Calm
--- NOTE | 2025-04-03 07:56 | CON.INTV ---
Consultation
Consultation Request
Date/Time Consultation Requested: 04/03/2025-7 AM
Date/Time Consultation Performed: 04/03/2025-7:30 AM
Requesting Provider: hospitalist
Performing Provider: Dr. Ellsworth
Reason for Consultation: DKA and critical care management
Medical History
-
Chief Complaint: DKA
History of Present Illness:
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
feels much improved this morning. She denies any shortness of breath, chest pain, chest tightness, productive cough, abdominal pain, nausea, leg swelling or focal weakness.
Past Medical History
Past Medical History: None ( Hypertension. Hyperlipidemia. Hypothyroid. Vsgtzhlp-ldeopbb-wziiwvrgl. TIA. 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 x 4. . Left femur fracture 2021.)
Social History
Tobacco: Non-smoker
Alcohol: None
Drug: None
Living: Assisted Living
Employment: Retired
Occupational Exposures: No known asbestos exposure
Environmental Exposures: no known tuberculosis exposure
Family History
Family History: Reviewed & Not Pertinent
Allergies / Home Medications
Allergies
Allergy/AdvReac Type Severity Reaction Status Date / Time
adhesive tape Allergy Unknown Verified 09/16/24 08:18
amoxicillin Allergy Unknown- Verified 09/16/24 09:53
tolerated
cefazolin
in the past
bee venom protein (honey bee) Allergy Unknown Verified 09/16/24 08:18
minocycline (From Minocin) Allergy Unknown Verified 09/16/24 08:18
Sulfa (Sulfonamide Allergy Unknown Verified 09/16/24 08:18
Antibiotics)
Home Medications
�Medication �Instructions �Recorded �Confirmed �Last Taken �Type
aspirin 81 mg tablet,delayed 81 mg PO DAILY Blood clot 06/07/22 04/02/25 09/15/24 History
release prevention/tx
atorvastatin 80 mg tablet (Lipitor) 80 mg PO DAILY High cholesterol 06/07/22 04/02/25 09/15/24 History
cholecalciferol (vitamin D3) 50 100 mcg PO HS Supplement 06/07/22 04/02/25 09/15/24 History
mcg (2,000 unit) capsule (Vitamin
D3)
lisinopril 10 mg tablet 10 mg PO HS Blood pressure 06/07/22 04/02/25 09/15/24 History
cvpcchiy-rtdnoacw-zgbg 8 mg-folic 2 tab PO DAILY Supplement 06/07/22 04/02/25 09/15/24 History
ac 400 mcg-vit K 10 mcg chew
tablet (Centrum Chewables)
vit C 250 mg-vit E 90 mg-zinc 40 1 tab PO BID Supplement 06/07/22 04/02/25 09/15/24 History
mg-copper 1 ws-lpwoek-souhum
capsule (PreserVision AREDS-2)
calcium carbonate (Calcium 500) 1,000 mg PO DAILY Supplement 09/16/24 04/02/25 09/15/24 History
duloxetine 20 mg capsule,delayed 40 mg PO DAILY Mental Health 09/16/24 04/02/25 09/15/24 History
release (Cymbalta)
levothyroxine 112 mcg tablet 112 mcg PO DAILY Thyroid 09/16/24 04/02/25 09/15/24 History
(Synthroid)
insulin aspart U-100 100 unit/mL 1 sliding scale dose SC AC 09/23/24 04/02/25 Unknown Rx
(3 mL) subcutaneous pen Diabetes #90 applic
insulin glargine 100 unit/mL (3 35 unit (0.35 mL) SC DAILY 09/23/24 04/02/25 09/16/24 Rx
mL) subcutaneous pen (Lantus Diabetes #0 mL
Solostar U-100 Insulin)
insulin lispro 100 unit/mL 7 unit (0.07 mL) SC AC Diabetes #0 09/23/24 04/02/25 09/16/24 Rx
subcutaneous pen (Humalog KwikPen mL
(U-100) Insulin)
Review of Systems
-
Unable to Obtain full review of systems at this time due to: Other ( per HPI)
Vitals / Labs / Diagnostic Testing
Vital Signs
Temp Pulse Resp BP Pulse Ox
97.7 F 93 16 110/77 97
04/03/25 07:15 04/03/25 06:01 04/03/25 06:01 04/03/25 06:01 04/03/25 06:01
Lab Data
04/03/25 04:29
Laboratory Results
04/03/25
04:29
PT 13.6
INR 1.01
APTT 21.6 L
Diagnostic Testing:
Physical Exam
-
Exam:
well-nourished and well-developed in no apparent distress
HEENT-atraumatic, normocephalic
Neck-supple, no JVD, no bruit
Heart-regular rate and rhythm-no murmurs, rubs or gallops
Chest-clear to auscultation, no wheezes, crackles
Back-no tenderness
Abdomen-soft, nontender, nondistended, no hepatosplenomegaly
Extremities-no cyanosis, clubbing, edema and good peripheral pulses
Integument-intact, no rashes, lesions or ecchymosis
Neurology-alert and oriented, nonfocal motor and sensory exam
Assessment
-
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
Diabetic ketoacidosis
initial blood sugar 591, anion gap 29
Colitis
Hyperkalemia
Lactic acidosis
Elevated total bilirubin
Leukocytosis
Conditions present prior to admission:
Hypertension.
Hyperlipidemia.
Hypothyroid.
Kmccxxyt-rvmlegn-gwmihxyhu.
TIA.
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
Appendectomy. x 4. . Left femur fracture 2021.
Plan
The patient will be admitted to medical intensive care unit for close monitoring
Supplemental oxygen as needed
Incentive spirometry
Aspiration precautions
Monitor blood sugar
Monitor anion gap
Insulin drip
Check A1c if not done in the last 3 months
Diabetic nurse practitioner consultation
Intravenous fluid resuscitation
Monitor potassium closely and replace appropriately
Check cultures
Empiric antibiotics-aztreonam and metronidazole initiated
DVT prophylaxis-on Lovenox
Early nutrition
Early mobilization
Dr. Ellsworth reviewed with daughter at the bedside 04/03/2025
Critical care statement: A total of 55 minutes of critical care time was provided for this patient today. This includes management of unstable vital signs, insulin drip management, evaluation of the patient at bedside, reviewing the patient's
pertinent medical records including radiographs, microbiology, laboratory evaluations, and discussion with primary team, consultants, charge nurse, and critical care nursing.
Diagnostic data:
Chest x-ray 04/03/2025- minimal bilateral lower lobe atelectasis
CT head 04/02/2025-no acute intracranial abnormalities
CT abdomen and pelvis 04/02/2025-mild rectal stool burden with mild perirectal stranding suggesting sterile coral colitis, mild compression deformity T11, endometrium measures up to 7 mm consider nonemergent pelvic ultrasound
Echocardiogram 03/29/2024-EF greater than 75%, aortic sclerosis without stenosis
Data Reviewed
-
EKG: Report reviewed by me
Radiology: Report reviewed by me
CT Scan: Report reviewed by me
Medical Tests (Nuc Med, Echo etc): Report reviewed by me
Labs: Labs reviewed by me
Critical Care Time (in minutes): 55
[2025-04-03] MEDS: CYMBALTA DELAYED RELEASE 40 MG PO (08:06)
[2025-04-03] MEDS: LIPITOR 80 MG PO (08:06)
[2025-04-03] MEDS: ASPIR LOW (ENTERIC COATED) 81 MG PO (08:06)
[2025-04-03] MEDS: MIRALAX 17 GRAMS PO (08:07)
[2025-04-03 08:12] LABS: Glucose - Point of Care 204 mg/dl (70-99)
[2025-04-03 09:03] LABS: Blood Urea Nitrogen 25 mg/dl (7-17); Calcium 9.1 mg/dl (8.4-10.2); Carbon Dioxide 14 mmol/L (22-30); Chloride 116 mmol/L (98-107); Estimated Creatinine Clearance 66 ml/min; Glucose 176 mg/dl (70-99); Potassium 4.7 mmol/L (3.5-5.1); Sodium 139 mmol/L (135-145); eGFR > 60.00
[2025-04-03 09:15] LABS: Glucose - Point of Care 126 mg/dl (70-99)
[2025-04-03 10:26] LABS: Glycohemoglobin (HgbA1c) 11.0 % (4.0-5.6)
[2025-04-03 10:43] LABS: Glucose - Point of Care 134 mg/dl (70-99)
[2025-04-03 11:14] LABS: Glucose - Point of Care 131 mg/dl (70-99)
[2025-04-03] MEDS: MAXIPIME 1000 MG IV ×3 (11:54→23:03)
[2025-04-03 12:04] LABS: Glucose - Point of Care 149 mg/dl (70-99)
--- NOTE | 2025-04-03 12:24 | PTCARENOTE ---
DKA insulin protocol continues. All assessments unchanged.
[2025-04-03 12:57] LABS: Blood Urea Nitrogen 26 mg/dl (7-17); Calcium 9.6 mg/dl (8.4-10.2); Carbon Dioxide 21 mmol/L (22-30); Chloride 113 mmol/L (98-107); Estimated Creatinine Clearance 58 ml/min; Glucose 161 mg/dl (70-99); Potassium 4.4 mmol/L (3.5-5.1); Sodium 137 mmol/L (135-145); eGFR > 60.00
[2025-04-03 13:26] LABS: Glucose - Point of Care 154 mg/dl (70-99)
[2025-04-03 14:12] LABS: Glucose - Point of Care 143 mg/dl (70-99)
[2025-04-03] MEDS: LANTUS 0.2 UNITS SC (14:29)
[2025-04-03 15:17] LABS: Glucose - Point of Care 195 mg/dl (70-99)
[2025-04-03] MEDS: NOVOLOG FLEXPEN 5 UNITS SC (16:05)
[2025-04-03 16:17] LABS: Glucose - Point of Care 263 mg/dl (70-99)
--- NOTE | 2025-04-03 16:30 | PTCARENOTE ---
Insulin gtt off. Eating at this time. All other assessments unchanged. Family at bedside.
[2025-04-03 17:19] LABS: Glucose - Point of Care 219 mg/dl (70-99)
[2025-04-03] MEDS: D5/0.45%NSS with KCL 20 MEQ IV (18:03)
[2025-04-03] MEDS: LOVENOX 40 MG SC (18:36)
[2025-04-03 18:44] LABS: Glucose - Point of Care 141 mg/dl (70-99)
[2025-04-03 18:59] LABS: Blood Urea Nitrogen 26 mg/dl (7-17); Calcium 9.3 mg/dl (8.4-10.2); Carbon Dioxide 19 mmol/L (22-30); Chloride 115 mmol/L (98-107); Estimated Creatinine Clearance 66 ml/min; Glucose 142 mg/dl (70-99); Potassium 4.2 mmol/L (3.5-5.1); Sodium 135 mmol/L (135-145); eGFR > 60.00
--- NOTE | 2025-04-03 20:00 | PTCARENOTE ---
Rec'd pt resting in bed, forgetfull, oriented to person & place, cooperative, follows commands, SR, BP stable, skin warm/dry, RA, lungs decr, sat 96, + bowel sounds, no bm, abd obese, poor appetite, purewick in place- voiding anne marie urine
[2025-04-03 22:11] LABS: Glucose - Point of Care 232 mg/dl (70-99)
[2025-04-03 22:31] LABS: Blood Urea Nitrogen 26 mg/dl (7-17); Calcium 9.1 mg/dl (8.4-10.2); Carbon Dioxide 18 mmol/L (22-30); Chloride 114 mmol/L (98-107); Estimated Creatinine Clearance 58 ml/min; Glucose 229 mg/dl (70-99); Potassium 4.3 mmol/L (3.5-5.1); Sodium 135 mmol/L (135-145); eGFR > 60.00
[2025-04-03] MEDS: LANTUS 0.08 UNITS SC (23:48)
[2025-04-03] MEDS: NOVOLOG FLEXPEN 2 UNITS SC (23:48)
--- NOTE | 2025-04-03 23:53 | PTCARENOTE ---
sys reviewed, lantus 8 units sc & novolog 2 units SC given per order
[2025-04-04] VITALS (18 sets, daily range): BP systolic 93–150; BP diastolic 48–94; BMI 37.5
[2025-04-04 03:11] LABS: Hematocrit 35.7 % (37.0-47.0); Hemoglobin 12.1 g/dL (12.0-16.0); Mean Corp Hgb Conc. 33.9 g/dL (33.0-37.0); Mean Corpuscular Volume 93.2 fL (81.0-99.0); Platelet Count 266 10^3/uL (130-400); Red Cell Dist. Width 13.5 % (11.5-14.5)
[2025-04-04 03:43] LABS: ALT (SGPT) 15 U/L (0-35); AST (SGOT) 27 U/L (14-36); Albumin 3.3 g/dl (3.5-5.0); Alkaline Phosphatase 99 U/L (38-126); Blood Urea Nitrogen 22 mg/dl (7-17); Calcium 9.4 mg/dl (8.4-10.2); Carbon Dioxide 20 mmol/L (22-30); Chloride 114 mmol/L (98-107); Estimated Creatinine Clearance 66 ml/min; Glucose 178 mg/dl (70-99); Magnesium 2.1 mg/dl (1.6-2.3); Potassium 4.2 mmol/L (3.5-5.1); Sodium 137 mmol/L (135-145); Total Protein 5.7 g/dl (6.3-8.2); eGFR > 60.00
--- NOTE | 2025-04-04 04:00 | PTCARENOTE ---
sys reviewed, changes noted, CHG bath done, linens changed
[2025-04-04] MEDS: MAXIPIME 1000 MG IV ×4 (06:09→23:07)
[2025-04-04] MEDS: STERILE WATER FOR INJECTION 10 ML IV ×4 (06:09→23:07)
[2025-04-04] MEDS: SYNTHROID 112 MCG PO (06:10)
--- NOTE | 2025-04-04 07:35 | W.PN.INTV ---
Today's Communication / Plan
Recommendations
Remains off insulin drip
PT/OT, out of bed to chair
Antibiotics per primary service. Follow-up blood cultures per primary service
Family members asking questions about colitis. Patient without GI symptoms at this time
Defer further workup to primary service
For transfer out of ICU. We will sign off. Please call with questions
Assessment
-
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
Diabetic ketoacidosis
initial blood sugar 591, anion gap 29
Colitis
Hyperkalemia
Lactic acidosis
Elevated total bilirubin
Leukocytosis
Conditions present prior to admission:
Hypertension.
Hyperlipidemia.
Hypothyroid.
Mbtnteju-vgzfplk-jgfstdxnp.
TIA.
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
Appendectomy. x 4. . Left femur fracture 2021.
Plan/recommendations
At this time, patient appears to be comfortable, on room air
She is off insulin drip
She has some mild vision issues, but has history of macular degeneration.
Tolerating p.o. GI symptoms have resolved
Chest x-ray is normal
Moving forward
Supplemental oxygen as needed
Incentive spirometry, out of bed to chair as able
Aspiration precautions
Monitor blood sugar
Off Insulin drip
Diabetic nurse practitioner consultation
Reviewed cultures
Empiric antibiotics-aztreonam and metronidazole initiated per primary service
Questionable colitis on imaging
Without GI symptoms at this time
Continue to be followed by primary service
DVT prophylaxis:on Lovenox
Reviewed with daughter and multiple family members at bedside
For transfer out of ICU. We will sign off. Please call with questions
Diagnostic data:
Chest x-ray 04/03/2025- minimal bilateral lower lobe atelectasis
CT head 04/02/2025-no acute intracranial abnormalities
CT abdomen and pelvis 04/02/2025-mild rectal stool burden with mild perirectal stranding suggesting sterile coral colitis, mild compression deformity T11, endometrium measures up to 7 mm consider nonemergent pelvic ultrasound
Echocardiogram 03/29/2024-EF greater than 75%, aortic sclerosis without stenosis
Subjective Dataa
Subjective Data
Date of Service:
Date of Service: April 04, 2025
Subjective:
Patient without any significant plaints. She is sitting in the chair, eating without difficulty. She denies nausea, chest pain, shortness of breath, headaches. She has some mild vision issues. Multiple family members at the bedside.
Objective Data
Data Reviewed
Vital Signs / I&O / Oxygen:
Vital Signs
Temp Pulse Resp BP Pulse Ox
97.7 F 72 16 115/62 96
04/04/25 07:31 04/04/25 06:00 04/04/25 06:00 04/04/25 06:00 04/04/25 06:00
Intake and Output
04/03/25 04/04/25 04/05/25
06:59 06:59 06:59
Intake Total 1166 / 1318 1719.5 / 1719.5
Output Total 100 / 100 1500 / 1500
Balance 1066 / 1218 219.5 / 219.5
SaO2 96
Physical Exam
General: Comfortable
HEENT: Normocephalic and Anicteric
Cardiovascular: S1-S2, Regular Rhythm, Murmur (n) and Peripheral Edema (n)
Respiratory: Wheeze (n), Crackles (n), Rhonchi (n) and Non-Labored Respirations
GI: Soft, Non Distended (Obese) and Non Tender
Neurology: Awake, Alert, Oriented and No Motor Deficits (Moving extremities, able to sit up without assistance)
Skin: Good Color, Jaundice (n) and Rash (n)
Labs/Micro/Reports
Lab Data
04/04/25 02:54
04/04/25 02:54
Microbiology
04/02/25 22:49 Blood/Venous Blood Culture - Preliminary
No Growth in 24 hours- Final report to follow
04/02/25 22:49 Blood/Venous Blood Culture - Preliminary
No Growth in 24 hours- Final report to follow
[2025-04-04 07:41] LABS: Glucose - Point of Care 213 mg/dl (70-99)
--- NOTE | 2025-04-04 07:46 | W.PN.HOSP.TC ---
Addendum entered and electronically signed by Brian Kwan DO 04/05/25 11:54:
CDI: IDDM, type II
Original Note:
Today's Communication/Plan
-
Patient off of insulin drip -transitioning to sliding scale insulin
Blood cultures positive for Staphylococcus�sensitivities pending
Continue cefepime -effective in treating gram-positive staphylococci
Diabetes nurse practitioner to meet with family for diabetic education
Assessment / Plan
Assessment / Plan
HPI: Patient is a 80-year-old female with a history of insulin dependent diabetes melitis, hypertension, preserved renal function presented to the emergency department with acute nausea, fatigue, weakness that started the morning of her
presentation. Her blood sugars have been elevated and are typically poorly controlled with a blood sugar around the 300 range. Over the last week her blood sugars averaged are over 400. In the emergency department the patient denied any chest
pain, shortness of breath, fever, focal neurologic symptoms or other complaints. Neuroexam was nonfocal. Lipase and LFTs were ordered down in the emergency department. A CT scan of the abdomen was conducted and was nonfocal. CT of the head
conducted down to the emergency department showed no acute intracranial abnormality. On arrival to the emergency department, the patient's blood glucose was 591, serum bicarbonate level was 9, patient was hyponatremic at 134, anion gap calculated
to be 23, there were elevated urine ketones present at 3+, and the patient had leukocytosis with a white blood cell count of 13.5. The patient was admitted to the ICU for diabetic ketoacidosis with an anion gap of 23.
Assessment and plan:
-Diabetic ketoacidosis: Resolved
Patient lethargic and somnolent
Patient's blood glucose was 591, serum bicarb level was 9 patient was hyponatremic at 134, anion gap calculated to be 23, there were elevated urine ketones present at 3+
Anion gap closed on 04/03/2025. Anion gap calculated to be 3.0 at 12:17 on 04/03/2025. Anion gap remains at 3 on 04/04/2025
- Leukocytosis: Unresolved�improving
Patient had a white blood cell count of 13.5 in the emergency department
White blood cells currently 14.9 on 04/03/2025 -currently 12.1 on 04/04/2025
Blood culture positive for gram-positive cocci
CT of the abdomen and pelvis showed mild rectal stool burden with a mild perirectal stranding suggestive of stercoral colitis
IV cefepime and Flagyl given
-Lactic acidosis: Resolved
Patient had a lactic acid level of 2.2 on admission and hit a peak at 3.3. Trended down to 1.5 on 04/03/2025
Insulin-dependent diabetes mellitus: Monitoring
Patient blood glucose was 591 at admission and is 161 on 04/03/2025
Hemoglobin A1c found to be 11 -poor glycemic control
Patient off of insulin drip�transitioning to sliding scale insulin, received 20 units glargine on 04/03/2025 and 5 units lispro during the day, patient received an additional 8 units of glargine over the evening.
Essential hypertension: Stable�monitoring
Holding antihypertensive medications until blood pressure is more stable
Hypothyroidism: Monitoring
Patient had a TSH of 14.4
Free T4 is 1.1
It could be possible that the patient is suffering from sick euthyroid syndrome secondary to DKA. Transient TSH elevation is generally a nonspecific response to acute illness or recovery and is not an indication for thyroid hormone medication
adjustments. It would be anglin to recheck TSH following the resolution of her DKA.
Recheck TSH in the outpatient setting
-Somnolence/altered mental status: Monitoring�improving
Head CT shows no acute intracranial abnormality
Altered mental status likely due to DKA and mentation improving as anion gap closed
-Hyperlipidemia: Stable
Continue statin and aspirin
DVT prophylaxis: LMWH
FULL CODE STATUS
Imaging:
- Abdomen/pelvis CT conducted on 04/02/2025:
Mild rectal stool burden with mild perirectal stranding suggestive of stercoral colitis.
Mild compression deformity of the T11 vertebral body which is likely chronic although there is concern for acute fracture and MRI may be considered for further evaluation.
Small hiatal hernia.
The endometrium measures up to 7 mm. Consider nonemergent pelvic ultrasound for further evaluation.
- Head CT conducted on 04/02/2025:
No acute intracranial abnormality noted.
- Chest x-ray conducted on 04/03/2025:
Minimal bibasilar atelectasis, more pronounced on the left.
Anticipated Discharge: 24 - 48 hours
Subjective/Interval History
-
Date of Service: April 04, 2025
Met with patient at the bedside. She is doing much better today and is pleasant in conversation. She is no longer somnolent and responds to questions asked. She does not recall meeting the radio script writer before today. Patient had ordered her breakfast
and was going to eat.
Objective Data
-
Labs:
Laboratory Results
04/03/25 04/04/25
22:05 02:54
WBC 12.1 H
Hgb 12.1
Hct 35.7 L
Plt Count 266
Sodium 135 137
Potassium 4.3 4.2
Chloride 114 H 114 H
Carbon Dioxide 18 L 20 L
BUN 26 H 22 H
Creatinine 0.8 0.7
Glucose 229 H 178 H
Calcium 9.1 9.4
Total Bilirubin 0.6
AST 27
ALT 15
Alkaline Phosphatase 99
Vital Signs:
Vital Signs
Temp Pulse Resp BP Pulse Ox
97.7 F 72 16 115/62 96
04/04/25 07:31 04/04/25 06:00 04/04/25 06:00 04/04/25 06:00 04/04/25 06:00
I&O
04/03/25 04/04/25 04/05/25
06:59 06:59 06:59
Intake Total 1166 / 1318 1719.5 / 1719.5
Output Total 100 / 100 1500 / 1500
Balance 1066 / 1218 219.5 / 219.5
Review of Systems
-
History Source: Patient
Constitutional: Reports No Symptoms
EENT: Reports No Symptoms Reported
Respiratory: Reports No Symptoms
Cardiac: Reports No Symptoms
Abdomen/GI: Reports No Symptoms
Breast: Reports No Symptoms
Genitourinary: Reports No Symptoms
Musculoskeletal: Reports No Symptoms
Skin: Reports No Symptoms
Neuro: Reports No Symptoms
Endocrine: Reports No Symptoms
Hematologic / Lymphatic: Reports No Symptoms
Physical Exam
-
General: Well Developed, Well Nourished, No Apparent Distress and Comfortable
HEENT: Normocephalic, Atraumatic and Moist Mucous Membranes
Respiratory: Clear to Auscultation; Negative Wheezes, Rales, Rhonchi or Crackles
Cardiac: Regular Rhythm and S1/S2
Breast: Deferred by me
GI: Soft, Nontender, Nondistended and Normal Bowel Sounds
Musculoskeletal: No Clubbing, No Cyanosis and Edema, Right Lower Extrem (2+ edema)
Skin: Warm, Dry and Rash
Neuro: Awake, Alert and Oriented
Hematologic / Lymphatic: No Lymphadenopathy
Psych: Calm
--- NOTE | 2025-04-04 07:46 | PN.DE.MGMTRT ---
Insulin Management
- -
04/04/2025: Diabetes Management Consult
80 year old female with PMH: HTN, HLD, Hypothyroid, IDDM. Patient presented to the ED c/o nausea, headache and fatigue, found to have colitis and DKA and was started on DKA protocol. Prior to admission, was taking Lantus 33 units @ HS and Humalog 7
units AC. Uses CGM- Dexcom G7.
Glucose on admission was 591 venous. Cr 0.9, eGFR> 60. A1C 11%.
Patient awake, alert, oriented, sitting up in bed, able to discuss diabetes care plan. lots of family members including at bedside
Pt was transitioned off DKA protocol on 04/03 @16:30 to SQ insulin. Patient was administered a 1 time dose of Lantus 20 units @ 14:30 2 hrs prior to turning off drip and an additional dose of Lantus 8 units @ HS.
04/04 FBG 178 V, 213 POC, this AM. Will start reduced dose of Lantus 20 units @ noon for today and maintain AM schedule starting tomorrow (was taking 33 units)
Will increase NovoLog AC dose from 5 units to 8 units. Cont low corrective with meals. Change diet from 2000 erika to 1600 erika, pt is only 5'2'
04/04 Had a lengthy discussion about pt's current A1C and glucose level on admission which was 591.
I discussed the need for consistent insulin administration with Pt, and all her children at the bedside.
Family reports that patient is having cognitive decline and is getting more forgetful and confused about managing her insulin administration at home.
Pt's states that pt does not hold the insulin pen for 10 secs after injecting the insulin and that he doesn't think she gets the full dose each time.
I have asked the if he is able to assist with insulin adm and he states that he has at times when he is able to. He is not sure if pt is consistently taking the insulin on days when he's not available to adm it. I have asked the to
assume that role of administering her insulin at all times moving forward and he was agreeable to the plan.
Diabetes History
- -
Type of Diabetes: 2 requiring insulin
Pre-Admission Diabetes Regimen
04/03/25 04/03/25 04/03/25
08:24 12:17 16:00
Creatinine 0.7 0.8 Cancelled
04/03/25 04/03/25 04/04/25
18:34 22:05 02:54
Creatinine 0.7 0.8 0.7
Lab Results
Hemoglobin A1c 11.0 % (4.0-5.6) H 04/03/25 04:29
Insulin Pump Settings
IP Diabetes Regimen
04/03/25 04/03/25 04/03/25
08:00 08:24 09:04
Glucose 176 H
POC Glucose 204 H 126 H
04/03/25 04/03/25 04/03/25
10:25 11:03 11:53
Glucose
POC Glucose 134 H 131 H 149 H
04/03/25 04/03/25 04/03/25
12:17 13:15 14:01
Glucose 161 H
POC Glucose 154 H 143 H
04/03/25 04/03/25 04/03/25
15:06 16:00 16:01
Glucose Cancelled
POC Glucose 195 H 263 H
04/03/25 04/03/25 04/03/25
17:08 18:32 18:34
Glucose 142 H
POC Glucose 219 H 141 H
04/03/25 04/03/25 04/04/25
22:00 22:05 02:54
Glucose 229 H 178 H
POC Glucose 232 H
04/04/25
07:30
Glucose
POC Glucose 213 H
Meal type: Dinner
Amount consumed: 20%
Patient Education
[2025-04-04] MEDS: NOVOLOG FLEXPEN-LOW RESISTANCE 2 UNITS SC (08:21)
[2025-04-04 08:52] LABS: Glucose - Point of Care 212 mg/dl (70-99)
[2025-04-04] MEDS: ASPIR LOW (ENTERIC COATED) 81 MG PO (08:58)
[2025-04-04] MEDS: NOVOLOG FLEXPEN 8 UNITS SC ×3 (08:58→17:18)
[2025-04-04] MEDS: MIRALAX 17 GRAMS PO (08:59)
[2025-04-04] MEDS: CYMBALTA DELAYED RELEASE 40 MG PO (08:59)
[2025-04-04] MEDS: LIPITOR 80 MG PO (08:59)
[2025-04-04] MEDS: FLAGYL 500 MG 100 IV ×3 (09:02→23:07)
[2025-04-04] MEDS: NOVOLOG FLEXPEN SC (09:06)
--- NOTE | 2025-04-04 09:24 | PTCARENOTE ---
Pt received in bed @ 0700. Disoriented to time, occasionally disoriented to place. Daughter states bad eyesight and that patient is without her glasses. Sinus rhythm 70s - 80s on electronic device monitor. HR to 120s with ambulation. +2 right ankle edema.
97% on room air. Lung sounds diminished. Abdomen obese. (+) bowel sounds. No bowel movement observed. Scheduled Miralax administered. Pt incontinent of urine. Assisted OOB to chair x2 with rolling walker.
[2025-04-04] MEDS: NOVOLOG FLEXPEN-LOW RESISTANCE 3 UNITS SC (11:06)
[2025-04-04 11:15] LABS: Glucose - Point of Care 253 mg/dl (70-99)
--- NOTE | 2025-04-04 13:07 | CM ---
Initial assessment completed with patient and . Patient with confusion and relied on to answer. Patient and live in a 2 story plus basement home with B/B on 2nd and 1/2 bath on 1st with a ramp to enter. 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 She also has a W/CH for longer distances. She does not drive. Is on service with Joselin . [facility] liaison notified of admission. No service. Does have a HC-POA. PCP is Dr. Altamirano
[place] and Pharmacy preference is [facility] [place] and [facility]. Discharge POC: TBD. No therapy ordered. If home, resume Joselin BERGERON RN, PT/OT.
[2025-04-04] MEDS: LANTUS 0.2 UNITS SC (13:36)
[2025-04-04 13:43] LABS: Hematocrit 38.2 % (37.0-47.0); Hemoglobin 12.9 g/dL (12.0-16.0); Mean Corp Hgb Conc. 33.8 g/dL (33.0-37.0); Mean Corpuscular Volume 91.6 fL (81.0-99.0); Platelet Count 276 10^3/uL (130-400); Red Cell Dist. Width 13.5 % (11.5-14.5)
[2025-04-04 14:09] LABS: AST (SGOT) 30 U/L (14-36); Albumin 3.7 g/dl (3.5-5.0); Alkaline Phosphatase 100 U/L (38-126); Blood Urea Nitrogen 20 mg/dl (7-17); Calcium 9.8 mg/dl (8.4-10.2); Carbon Dioxide 22 mmol/L (22-30); Chloride 111 mmol/L (98-107); Estimated Creatinine Clearance 78 ml/min; Glucose 243 mg/dl (70-99); Potassium 4.8 mmol/L (3.5-5.1); Sodium 138 mmol/L (135-145); Total Protein 6.4 g/dl (6.3-8.2); eGFR > 60.00
[2025-04-04 16:15] LABS: ALT (SGPT) 22 U/L (0-35)
[2025-04-04] MEDS: NOVOLOG FLEXPEN-LOW RESISTANCE 1 UNITS SC (17:18)
[2025-04-04] MEDS: LOVENOX 40 MG SC (17:19)
[2025-04-04 17:30] LABS: Glucose - Point of Care 196 mg/dl (70-99)
[2025-04-04 21:17] LABS: Glucose - Point of Care 171 mg/dl (70-99)
[2025-04-05] VITALS (7 sets, daily range): BP systolic 112–142; BP diastolic 60–76; PULSE 110–150; O2SAT 96; BMI 37.4
[2025-04-05] MEDS: MAXIPIME 1000 MG IV (05:12)
[2025-04-05] MEDS: STERILE WATER FOR INJECTION 10 ML IV (05:12)
[2025-04-05] MEDS: SYNTHROID 112 MCG PO (05:12)
--- NOTE | 2025-04-05 07:30 | W.PN.HOSP.TC ---
Today's Communication/Plan
-
Patient appears to be back at her baseline.
Anion gap remains closed and patient is on sliding scale insulin
Diabetic nurse practitioner giving family education on proper insulin administration and diabetes management
Will begin to move forward with discharge planning.
Assessment / Plan
Assessment / Plan
HPI: Patient is a 80-year-old female with a history of insulin dependent diabetes melitis, hypertension, preserved renal function presented to the emergency department with acute nausea, fatigue, weakness that started the morning of her
presentation. Her blood sugars have been elevated and are typically poorly controlled with a blood sugar around the 300 range. Over the last week her blood sugars averaged are over 400. In the emergency department the patient denied any chest
pain, shortness of breath, fever, focal neurologic symptoms or other complaints. Neuroexam was nonfocal. Lipase and LFTs were ordered down in the emergency department. A CT scan of the abdomen was conducted and was nonfocal. CT of the head
conducted down to the emergency department showed no acute intracranial abnormality. On arrival to the emergency department, the patient's blood glucose was 591, serum bicarbonate level was 9, patient was hyponatremic at 134, anion gap calculated
to be 23, there were elevated urine ketones present at 3+, and the patient had leukocytosis with a white blood cell count of 13.5. The patient was admitted to the ICU for diabetic ketoacidosis with an anion gap of 23.
Assessment and plan:
-Diabetic ketoacidosis: Resolved
Patient lethargic and somnolent
Patient's blood glucose was 591, serum bicarb level was 9 patient was hyponatremic at 134, anion gap calculated to be 23, there were elevated urine ketones present at 3+
Anion gap closed on 04/03/2025. Anion gap calculated to be 3.0 at 12:17 on 04/03/2025. Anion gap remains at 3 on 04/04/2025. Anion gap remains closed
- Leukocytosis: Resolved
Patient had a white blood cell count of 13.5 in the emergency department
White blood cells 14.9 on 04/03/2025, 12.1 on 04/04/2025, 6.4 on 04/05/2025
Blood culture positive for gram-positive cocci -likely contaminant
CT of the abdomen and pelvis showed mild rectal stool burden with a mild perirectal stranding suggestive of stercoral colitis -bisacodyl given
IV cefepime and Flagyl given
-Lactic acidosis: Resolved
Patient had a lactic acid level of 2.2 on admission and hit a peak at 3.3. Trended down to 1.5 on 04/03/2025
Insulin-dependent diabetes mellitus: Stable - monitoring
Patient blood glucose was 591 at admission and was 161 on 04/03/2025
Hemoglobin A1c found to be 11 -poor glycemic control
Patient off of insulin drip�transitioning to sliding scale insulin, received 20 units glargine on 04/03/2025 and 5 units lispro during the day, patient received an additional 8 units of glargine over the evening.
Diabetic nurse practitioner educating family on proper insulin dosage. Patient on insulin sliding scale with Accu-Chek blood glucose goal of 140�180.
Carb controlled diet
Essential hypertension: Stable�monitoring
Holding antihypertensive medications until blood pressure is more stable
Hypothyroidism: Monitoring
Patient had a TSH of 14.4
Free T4 is 1.1
It could be possible that the patient is suffering from sick euthyroid syndrome secondary to DKA. Transient TSH elevation is generally a nonspecific response to acute illness or recovery and is not an indication for thyroid hormone medication
adjustments. It would be anglin to recheck TSH following the resolution of her DKA.
Recheck TSH in the outpatient setting
-Somnolence/altered mental status: Monitoring�improving
Head CT shows no acute intracranial abnormality
Altered mental status likely due to DKA and mentation improving as anion gap closed
-Hyperlipidemia: Stable
Continue statin and aspirin
DVT prophylaxis: Lovenox subcu
FULL CODE STATUS
Imaging:
- Abdomen/pelvis CT conducted on 04/02/2025:
Mild rectal stool burden with mild perirectal stranding suggestive of stercoral colitis.
Mild compression deformity of the T11 vertebral body which is likely chronic although there is concern for acute fracture and MRI may be considered for further evaluation.
Small hiatal hernia.
The endometrium measures up to 7 mm. Consider nonemergent pelvic ultrasound for further evaluation.
- Head CT conducted on 04/02/2025:
No acute intracranial abnormality noted.
- Chest x-ray conducted on 04/03/2025:
Minimal bibasilar atelectasis, more pronounced on the left.
Anticipated Discharge: 24 - 48 hours
Subjective/Interval History
-
Date of Service: April 05, 2025
Met with patient at the bedside. She is pleasantly confused. Polite in conversation and made a joke about her appearance. She states that she is feeling much better and slept well overnight.
Objective Data
-
Labs:
Laboratory Results
04/05/25
07:17
WBC 6.4
Hgb 11.9 L
Hct 35.0 L
Plt Count 249
Vital Signs:
Vital Signs
Temp Pulse Resp BP Pulse Ox
97.8 F 84 16 116/70 98
04/05/25 03:55 04/05/25 03:55 04/05/25 03:55 04/05/25 03:55 04/05/25 03:55
I&O
04/04/25 04/05/25 04/06/25
06:59 06:59 06:59
Intake Total 1719.5 / 1719.5 1310 / 1310
Output Total 1500 / 1500 700 / 700
Balance 219.5 / 219.5 610 / 610
Review of Systems
-
History Source: Patient
Constitutional: Reports No Symptoms
EENT: Reports No Symptoms Reported
Respiratory: Reports No Symptoms
Cardiac: Reports No Symptoms
Abdomen/GI: Reports No Symptoms
Breast: Reports No Symptoms
Genitourinary: Reports No Symptoms
Musculoskeletal: Reports No Symptoms
Skin: Reports No Symptoms
Neuro: Reports No Symptoms
Endocrine: Reports No Symptoms
Physical Exam
-
General: Well Developed, Well Nourished, No Apparent Distress, Comfortable and Conversant
HEENT: Normocephalic, Atraumatic and Moist Mucous Membranes
Respiratory: Clear to Auscultation; Negative Wheezes, Rales, Rhonchi or Crackles
Cardiac: Regular Rhythm and S1/S2
Breast: Deferred by me
GI: Soft, Nontender, Nondistended and Normal Bowel Sounds
Musculoskeletal: No Clubbing, No Cyanosis and No Edema
Skin: Warm and Dry; Negative Rash, Ulcers or Lesions
Neuro: Awake, Alert, Oriented and AO x 3
Psych: Calm
--- NOTE | 2025-04-05 07:51 | PN.DE.MGMTRT ---
Insulin Management
- -
04/05/2025: Diabetes Management Consult Follow up
Patient admitted 04/02 c/o nausea, headache and fatigue, found to have colitis and DKA. PMH: HTN, HLD, Hypothyroid, IDDM. Was started on DKA protocol. Prior to admission, was taking Lantus 33 units daily and Humalog 7 units AC. Uses CGM- Dexcom G7.
Glucose on admission was 591 venous. Cr 0.9, eGFR> 60. A1C 11%.
Patient awake, alert, oriented, sitting up in bed, able to discuss diabetes care plan. lots of family members including at bedside
Pt was transitioned off DKA protocol on 04/03 @16:30 to SQ insulin.
04/04 FBG 178 started reduced dose of Lantus 20 units @ noon and maintain AM schedule starting tomorrow (was taking 33 units)
NovoLog AC dose increased from 5 units to 8 units. Cont low corrective with meals. Change diet from 2000 erika to 1600 erika, pt is only 5'2'.
04/05 Fasting glucose 150, will continue lantus 20 units in AM with novolog 8 units AC and low corrective.
Provided printed instruction for each step of insulin administration.
04/04 Had a lengthy discussion about pt's current A1C and glucose level on admission which was 591.
I discussed the need for consistent insulin administration with Pt, and all her children at the bedside.
Family reports that patient is having cognitive decline and is getting more forgetful and confused about managing her insulin administration at home.
Pt's states that pt does not hold the insulin pen for 10 secs after injecting the insulin and that he doesn't think she gets the full dose each time.
I have asked the if he is able to assist with insulin adm and he states that he has at times when he is able to. He is not sure if pt is consistently taking the insulin on days when he's not available to adm it. I have asked the to
assume that role of administering her insulin at all times moving forward and he was agreeable to the plan.
Diabetes History
- -
Type of Diabetes: 2 requiring insulin
Pre-Admission Diabetes Regimen
04/04/25
13:31
Creatinine 0.6
Lab Results
Hemoglobin A1c 11.0 % (4.0-5.6) H 04/03/25 04:29
Insulin Pump Settings
IP Diabetes Regimen
04/03/25 04/04/25 04/04/25
07:13 11:04 13:31
Glucose 243 H
POC Glucose 212 H 253 H
04/04/25 04/04/25
17:18 21:16
Glucose
POC Glucose 196 H 171 H
Meal type: Lunch
Meal type: Breakfast
Amount consumed: 100%
Amount consumed: 85%
Patient Education
[2025-04-05 07:54] LABS: Hematocrit 35.0 % (37.0-47.0); Hemoglobin 11.9 g/dL (12.0-16.0); Mean Corp Hgb Conc. 34.0 g/dL (33.0-37.0); Mean Corpuscular Volume 91.4 fL (81.0-99.0); Platelet Count 249 10^3/uL (130-400); Red Cell Dist. Width 13.6 % (11.5-14.5)
[2025-04-05] MEDS: CYMBALTA DELAYED RELEASE 40 MG PO (08:07)
[2025-04-05] MEDS: ASPIR LOW (ENTERIC COATED) 81 MG PO (08:07)
[2025-04-05] MEDS: FLAGYL 500 MG 100 IV (08:07)
[2025-04-05] MEDS: LIPITOR 80 MG PO (08:07)
[2025-04-05] MEDS: MIRALAX 17 GRAMS PO (08:07)
[2025-04-05 08:12] LABS: Glucose - Point of Care 146 mg/dl (70-99)
[2025-04-05] MEDS: NOVOLOG FLEXPEN-LOW RESISTANCE SC ×2 (08:12→16:39)
[2025-04-05 08:46] LABS: AST (SGOT) 22 U/L (14-36); Albumin 3.0 g/dl (3.5-5.0); Alkaline Phosphatase 88 U/L (38-126); Blood Urea Nitrogen 18 mg/dl (7-17); Carbon Dioxide 23 mmol/L (22-30); Chloride 112 mmol/L (98-107); Estimated Creatinine Clearance 78 ml/min; Glucose 150 mg/dl (70-99); Potassium 4.2 mmol/L (3.5-5.1); Sodium 137 mmol/L (135-145); Total Protein 5.5 g/dl (6.3-8.2); eGFR > 60.00
[2025-04-05 09:01] LABS: ALT (SGPT) 14 U/L (0-35); Calcium 8.8 mg/dl (8.4-10.2)
--- NOTE | 2025-04-05 09:02 | PN.CDI ---
CDI
- -
CDI:
Physician Documentation Request
Admit Date: 04/02/25 22:29
Dear Doctor Pierre,
Patient admitted with DKA.
04/05/25 PN, 'Insulin-dependent diabetes mellitus.'
04/02/25 H&P, 'DKA ....IDDM.'
04/04/25 Diabetes Management Consult, ' IDDM....Type of Diabetes: 2 requiring insulin.'
06/07/22 H&P, '....type 1 diabetes'
06/20/2022 Discharge Summary, 'DISCHARGE DIAGNOSIS:.... Type 1 diabetes mellitus.'
Please clarify in your note the type of Diabetes Mellitus (DM)being treated:
Type 1 diabetes mellitus
Type 2 diabetes mellitus
Other
Use of terms such as suspected, likely, concern for, or probable (associated with a specific diagnosis that is being evaluated, monitored, or treated as if it exists) are acceptable and can be coded in the inpatient setting, when documented at the
time of discharge.
Thank you,
Sujey MOBLEY,RN,CCDS
CDI Specialist
Available via [place] text
Please use your independent medical judgment in providing your response.
[2025-04-05] MEDS: NOVOLOG FLEXPEN 8 UNITS SC ×3 (09:33→17:16)
[2025-04-05] MEDS: LANTUS 0.2 UNITS SC (09:42)
[2025-04-05 11:54] LABS: Glucose - Point of Care 251 mg/dl (70-99)
[2025-04-05] MEDS: NOVOLOG FLEXPEN-LOW RESISTANCE 3 UNITS SC (12:39)
[2025-04-05 16:29] LABS: Glucose - Point of Care 148 mg/dl (70-99)
[2025-04-05] MEDS: LOVENOX 40 MG SC (17:15)
[2025-04-05 21:06] LABS: Glucose - Point of Care 220 mg/dl (70-99)
[2025-04-06 03:47] VITALS: BP 121/75
[2025-04-06] MEDS: SYNTHROID 112 MCG PO (05:19)
[2025-04-06 06:00] VITALS: BMI 37.1
[2025-04-06 07:12] LABS: Hematocrit 35.3 % (37.0-47.0); Hemoglobin 12.1 g/dL (12.0-16.0); Mean Corp Hgb Conc. 34.3 g/dL (33.0-37.0); Mean Corpuscular Volume 90.7 fL (81.0-99.0); Platelet Count 218 10^3/uL (130-400); Red Cell Dist. Width 13.6 % (11.5-14.5)
[2025-04-06 07:33] LABS: Glucose - Point of Care 237 mg/dl (70-99)
--- NOTE | 2025-04-06 07:35 | W.PN.HOSP.TC ---
Today's Communication/Plan
-
Patient appears to be back at baseline
PT recommends skilled rehab�will move forward with discharge planning with referrals to rehab if patient and family amenable
Diabetes education provided to family
Patient will go home on 20 units of Lantus in the morning with 8 units of NovoLog AC and low corrective -instructions provided for each step of insulin administration
Assessment / Plan
Assessment / Plan
HPI: Patient is a 80-year-old female with a history of insulin dependent diabetes melitis, hypertension, preserved renal function presented to the emergency department with acute nausea, fatigue, weakness that started the morning of her
presentation. Her blood sugars have been elevated and are typically poorly controlled with a blood sugar around the 300 range. Over the last week her blood sugars averaged are over 400. In the emergency department the patient denied any chest
pain, shortness of breath, fever, focal neurologic symptoms or other complaints. Neuroexam was nonfocal. Lipase and LFTs were ordered down in the emergency department. A CT scan of the abdomen was conducted and was nonfocal. CT of the head
conducted down to the emergency department showed no acute intracranial abnormality. On arrival to the emergency department, the patient's blood glucose was 591, serum bicarbonate level was 9, patient was hyponatremic at 134, anion gap calculated
to be 23, there were elevated urine ketones present at 3+, and the patient had leukocytosis with a white blood cell count of 13.5. The patient was admitted to the ICU for diabetic ketoacidosis with an anion gap of 23.
Assessment and plan:
-Diabetic ketoacidosis: Resolved
Patient lethargic and somnolent
Patient's blood glucose was 591, serum bicarb level was 9 patient was hyponatremic at 134, anion gap calculated to be 23, there were elevated urine ketones present at 3+
Anion gap closed on 04/03/2025. Anion gap calculated to be 3.0 at 12:17 on 04/03/2025. Anion gap remains at 3 on 04/04/2025. Anion gap remains closed
- Leukocytosis: Resolved
Patient had a white blood cell count of 13.5 in the emergency department
White blood cells 14.9 on 04/03/2025, 12.1 on 04/04/2025, 6.4 on 04/05/2025
Blood culture positive for gram-positive cocci -likely contaminant
CT of the abdomen and pelvis showed mild rectal stool burden with a mild perirectal stranding suggestive of stercoral colitis -bisacodyl given
IV cefepime and Flagyl given
-Lactic acidosis: Resolved
Patient had a lactic acid level of 2.2 on admission and hit a peak at 3.3. Trended down to 1.5 on 04/03/2025
- Type 2 diabetes requiring insulin: Stable - monitoring
Patient blood glucose was 591 at admission and was 161 on 04/03/2025
Hemoglobin A1c found to be 11 -poor glycemic control
Patient off of insulin drip�transitioning to sliding scale insulin, received 20 units glargine on 04/03/2025 and 5 units lispro during the day, patient received an additional 8 units of glargine over the evening.
Diabetic nurse practitioner educating family on proper insulin dosage. Patient on insulin sliding scale with Accu-Chek blood glucose goal of 140�180.
Carb controlled diet
Essential hypertension: Stable�monitoring
Holding antihypertensive medications until blood pressure is more stable
Hypothyroidism: Stable
Patient had a TSH of 14.4
Free T4 is 1.1
It could be possible that the patient is suffering from sick euthyroid syndrome secondary to DKA. Transient TSH elevation is generally a nonspecific response to acute illness or recovery and is not an indication for thyroid hormone medication
adjustments. It would be anglin to recheck TSH following the resolution of her DKA.
Recheck TSH in the outpatient setting
-Somnolence/altered mental status: Monitoring�resolved/back at baseline
Head CT shows no acute intracranial abnormality
Altered mental status likely due to DKA and mentation improving as anion gap closed
-Hyperlipidemia: Stable
Continue statin and aspirin
DVT prophylaxis: Lovenox subcu
FULL CODE STATUS
Imaging:
- Abdomen/pelvis CT conducted on 04/02/2025:
Mild rectal stool burden with mild perirectal stranding suggestive of stercoral colitis.
Mild compression deformity of the T11 vertebral body which is likely chronic although there is concern for acute fracture and MRI may be considered for further evaluation.
Small hiatal hernia.
The endometrium measures up to 7 mm. Consider nonemergent pelvic ultrasound for further evaluation.
- Head CT conducted on 04/02/2025:
No acute intracranial abnormality noted.
- Chest x-ray conducted on 04/03/2025:
Minimal bibasilar atelectasis, more pronounced on the left.
Anticipated Discharge: 24 - 48 hours
Subjective/Interval History
-
Date of Service: April 06, 2025
Met with patient at the bedside. was there talking to the patient. Patient is in a good mood with a positive affect. Patient still forgetful and unsure of what she ate this morning for breakfast. Pleasant in conversation. Discussed
possible discharge planning and diabetic education. showed instructions given by diabetic nurse practitioner. states that the patient's daughter Marilin will also be helping with insulin management in the home setting.
Objective Data
-
Labs:
Laboratory Results
04/06/25
06:46
WBC 5.6
Hgb 12.1
Hct 35.3 L
Plt Count 218
Vital Signs:
Vital Signs
Temp Pulse Resp BP Pulse Ox
98.1 F 73 16 146/82 96
04/06/25 08:01 04/06/25 08:01 04/06/25 08:01 04/06/25 08:01 04/06/25 08:49
I&O
04/05/25 04/06/25 04/07/25
06:59 06:59 06:59
Intake Total 1310 / 1310 920 / 920
Output Total 700 / 700
Balance 610 / 610 920 / 920
Review of Systems
-
History Source: Patient
All other systems: Reviewed and negative
Physical Exam
-
General: Well Developed, Well Nourished, No Apparent Distress and Comfortable
HEENT: Normocephalic, Atraumatic and Moist Mucous Membranes
Respiratory: Clear to Auscultation; Negative Wheezes, Rales, Rhonchi or Crackles
Cardiac: Regular Rhythm and S1/S2
Breast: Deferred by me
GI: Soft, Nontender, Nondistended and Normal Bowel Sounds
Musculoskeletal: No Clubbing, No Cyanosis and No Edema
Skin: Warm, Dry and Normal Turgor; Negative Rash, Ulcers, Lesions or Jaundice
Neuro: Awake, Alert, Oriented and AO x 3
Hematologic / Lymphatic: No Lymphadenopathy
Psych: Calm
--- NOTE | 2025-04-06 07:53 | PN.DE.MGMTRT ---
Insulin Management
- -
04/06/2025: Diabetes Management Consult Follow up
Patient admitted 04/02 c/o nausea, headache and fatigue, found to have colitis and DKA. PMH: HTN, HLD, Hypothyroid, IDDM. Was started on DKA protocol. Prior to admission, was taking Lantus 33 units daily and Humalog 7 units AC. Uses CGM- Dexcom G7.
Glucose on admission was 591 venous. Cr 0.9, eGFR> 60. A1C 11%.
Patient awake, alert, oriented, sitting up in bed, able to discuss diabetes care plan. at bedside as well as 2 daughters and son in law. Daughter states patient sees Dr. Shabazz for diabetes care, last seen October 2024.
Pt was transitioned off DKA protocol on 04/03 @16:30 to SQ insulin.
04/05 Fasting glucose 150, continued lantus 20 units in AM with novolog 8 units AC and low corrective. Glucose range 148 to 251.
04/06 Fasting glucose 237. Will increase AM lantus to 25 units and continue novolog 8 units AC with low corrective.
Provided printed instruction for each step of insulin administration.
04/04 Had a lengthy discussion about pt's current A1C and glucose level on admission which was 591.
I discussed the need for consistent insulin administration with Pt, and all her children at the bedside.
Family reports that patient is having cognitive decline and is getting more forgetful and confused about managing her insulin administration at home.
Pt's states that pt does not hold the insulin pen for 10 secs after injecting the insulin and that he doesn't think she gets the full dose each time.
I have asked the if he is able to assist with insulin adm and he states that he has at times when he is able to. He is not sure if pt is consistently taking the insulin on days when he's not available to adm it. I have asked the to
assume that role of administering her insulin at all times moving forward and he was agreeable to the plan. 04/05 Reinforced above and importance of family supervising all injections.
04/06/2025 One hour education session with patient, , 2 daughter, Delfina and her and Marilin (Director of [facility]). Patient and reside independently at [facility] and will continue to do so at discharge. All
aspects of patient diabetes discussed including use of DexCom and recording blood sugars on a tablet before each meal, hs and if the DexCom alarms. Reviewed settings of DexCom, alerts when glucose is < 80 and > 250. Provided instructions to all
members of family on calibration of DexCom. Provided instructions on actions to take if glucose is too low, < 80 and when a snack is needed at bedtime. Also reviewed insulin administration with patient as he will be assuming responsibility
for insulin administration. As it was lunch time I did have Mr. Key administer patients insulin at lunch. I did ask nursing to have him administer at dinner just for repetition. Daughter will email me glucose results 3 days after discharge.
They will arrange follow up visit with Dr. Shabazz.
Diabetes History
- -
Type of Diabetes: 2 requiring insulin
Pre-Admission Diabetes Regimen
04/05/25
07:17
Creatinine 0.6
Lab Results
Hemoglobin A1c 11.0 % (4.0-5.6) H 04/03/25 04:29
Insulin Pump Settings
IP Diabetes Regimen
04/05/25 04/05/25 04/05/25
07:17 08:10 11:52
Glucose 150 H
POC Glucose 146 H 251 H
04/05/25 04/05/25 04/06/25
16:27 21:05 07:32
Glucose
POC Glucose 148 H 220 H 237 H
Meal type: Dinner
Meal type: Lunch
Meal type: Breakfast
Amount consumed: 95%
Amount consumed: 60%
Amount consumed: 100%
Patient Education
[2025-04-06 08:01] VITALS: BP 146/82
[2025-04-06] MEDS: NOVOLOG FLEXPEN 8 UNITS SC ×3 (08:59→18:25)
[2025-04-06] MEDS: NOVOLOG FLEXPEN-LOW RESISTANCE 2 UNITS SC (08:59)
[2025-04-06] MEDS: LANTUS 0.25 UNITS SC (09:01)
[2025-04-06] MEDS: MIRALAX PO (09:02)
[2025-04-06] MEDS: LIPITOR 80 MG PO (09:02)
[2025-04-06] MEDS: ASPIR LOW (ENTERIC COATED) 81 MG PO (09:02)
[2025-04-06] MEDS: CYMBALTA DELAYED RELEASE 40 MG PO (09:02)
[2025-04-06] MEDS: FLUSH (NSS) 1 FLUSH IV (09:02)
[2025-04-06 10:51] LABS: ALT (SGPT) 17 U/L (0-35); AST (SGOT) 27 U/L (14-36); Albumin 2.9 g/dl (3.5-5.0); Alkaline Phosphatase 92 U/L (38-126); Blood Urea Nitrogen 15 mg/dl (7-17); Calcium 8.5 mg/dl (8.4-10.2); Carbon Dioxide 22 mmol/L (22-30); Chloride 110 mmol/L (98-107); Estimated Creatinine Clearance 78 ml/min; Glucose 223 mg/dl (70-99); Potassium 4.3 mmol/L (3.5-5.1); Sodium 136 mmol/L (135-145); Total Protein 5.1 g/dl (6.3-8.2); eGFR > 60.00
[2025-04-06 11:18] VITALS: BP 137/79
[2025-04-06 11:51] LABS: Glucose - Point of Care 265 mg/dl (70-99)
[2025-04-06] MEDS: NOVOLOG FLEXPEN-LOW RESISTANCE 3 UNITS SC (12:19)
[2025-04-06 15:24] VITALS: BP 129/76
--- NOTE | 2025-04-06 16:34 | PTCARENOTE ---
Pt awake and alert, oriented to self, occ to date/place, pt not sure why she is in hospital. very forgetful; poor short term memory. DONNELLY, OOB to BSC with assist x3, pt not bearing weight; does not assist with OOB activity. VSS. On room air- pulse
ox 96%, no SOB noted. Abd obese, soft, armaan PO well. Voided on BSC; also incont large amts urine. Resting in bed at present. Will continue to monitor.
--- NOTE | 2025-04-06 16:34 | CM ---
Met with patient after receiving a message from resident that patient is stable for discharge. PT rec is SNF. Met with patient, her spouse and daughter at bedside. Patient and her spouse stated that they were unsure of whether or not they wanted to
pursue SNF as she is not far from her baseline level of functioning. Relayed concerns on behalf of medical staff and advised patient that [facility] would have to be comfortable taking patient back. Patient's spouse stated that they have been working
with [facility] and would like to return home with their services and increased caregiving which is an option. Patient was advised that as she is deconditioned and there is no 24 care, this could be a potential challenge, particularly for her spouse
who will be there with her. They were agreeable to a referral being sent to [facility]. Will call [facility] in the morning and review PT to determine if patient returning there without rehab is even an option for them.
Plan: Case management will continue to follow and assist with discharge planning. SNF vrs back to [facility]. Will send referral to [facility].
[2025-04-06 17:01] LABS: Glucose - Point of Care 137 mg/dl (70-99)
[2025-04-06] MEDS: LOVENOX 40 MG SC (18:24)
[2025-04-06] MEDS: NOVOLOG FLEXPEN-LOW RESISTANCE SC (18:25)
[2025-04-06 21:02] LABS: Glucose - Point of Care 157 mg/dl (70-99)
[2025-04-06 23:30] VITALS: BP 122/63
[2025-04-07 05:10] VITALS: BMI 36.8
[2025-04-07] MEDS: SYNTHROID 112 MCG PO (05:41)
[2025-04-07 06:56] LABS: Glucose - Point of Care 142 mg/dl (70-99)
--- NOTE | 2025-04-07 07:30 | W.PN.HOSP.TC ---
Today's Communication/Plan
-
Moving forward with discharge planning. Patient is back at her baseline.
Patient and family are working with case management to decide whether discharge to [facility] or back to [place] would be favorable for the patient.
Case management to meet with the patient later on in the day to finalize planning.
Assessment / Plan
Assessment / Plan
HPI: Patient is a 80-year-old female with a history of insulin dependent diabetes melitis, hypertension, preserved renal function presented to the emergency department with acute nausea, fatigue, weakness that started the morning of her
presentation. Her blood sugars have been elevated and are typically poorly controlled with a blood sugar around the 300 range. Over the last week her blood sugars averaged are over 400. In the emergency department the patient denied any chest
pain, shortness of breath, fever, focal neurologic symptoms or other complaints. Neuroexam was nonfocal. Lipase and LFTs were ordered down in the emergency department. A CT scan of the abdomen was conducted and was nonfocal. CT of the head
conducted down to the emergency department showed no acute intracranial abnormality. On arrival to the emergency department, the patient's blood glucose was 591, serum bicarbonate level was 9, patient was hyponatremic at 134, anion gap calculated
to be 23, there were elevated urine ketones present at 3+, and the patient had leukocytosis with a white blood cell count of 13.5. The patient was admitted to the ICU for diabetic ketoacidosis with an anion gap of 23.
Assessment and plan:
-Diabetic ketoacidosis: Resolved
Patient lethargic and somnolent
Patient's blood glucose was 591, serum bicarb level was 9 patient was hyponatremic at 134, anion gap calculated to be 23, there were elevated urine ketones present at 3+
Anion gap closed on 04/03/2025. Anion gap calculated to be 3.0 at 12:17 on 04/03/2025. Anion gap remains at 3 on 04/04/2025. Anion gap remains closed
- Leukocytosis: Resolved
Patient had a white blood cell count of 13.5 in the emergency department
White blood cells 14.9 on 04/03/2025, 12.1 on 04/04/2025, 6.4 on 04/05/2025
Blood culture positive for gram-positive cocci -likely contaminant
CT of the abdomen and pelvis showed mild rectal stool burden with a mild perirectal stranding suggestive of stercoral colitis -bisacodyl given
IV cefepime and Flagyl given -discontinued - leukocytosis resolved
-Lactic acidosis: Resolved
Patient had a lactic acid level of 2.2 on admission and hit a peak at 3.3. Trended down to 1.5 on 04/03/2025
- Type 2 diabetes requiring insulin: Stable - monitoring
Patient blood glucose was 591 at admission and was 161 on 04/03/2025
Hemoglobin A1c found to be 11 -poor glycemic control
Patient off of insulin drip�transitioning to sliding scale insulin, received 20 units glargine on 04/03/2025 and 5 units lispro during the day, patient received an additional 8 units of glargine over the evening.
Diabetic nurse practitioner educating family on proper insulin dosage. Patient on insulin sliding scale with Accu-Chek blood glucose goal of 140�180.
Carb controlled diet
Essential hypertension: Stable�monitoring
Holding antihypertensive medications until blood pressure is more stable
Hypothyroidism: Stable
Patient had a TSH of 14.4
Free T4 is 1.1
It could be possible that the patient is suffering from sick euthyroid syndrome secondary to DKA. Transient TSH elevation is generally a nonspecific response to acute illness or recovery and is not an indication for thyroid hormone medication
adjustments. It would be anglin to recheck TSH following the resolution of her DKA.
Recheck TSH in the outpatient setting
-Somnolence/altered mental status: Monitoring�resolved/back at baseline
Head CT shows no acute intracranial abnormality
Altered mental status likely due to DKA and mentation improving as anion gap closed
-Hyperlipidemia: Stable
Continue statin and aspirin
DVT prophylaxis: Lovenox subcu
FULL CODE STATUS
Imaging:
- Abdomen/pelvis CT conducted on 04/02/2025:
Mild rectal stool burden with mild perirectal stranding suggestive of stercoral colitis.
Mild compression deformity of the T11 vertebral body which is likely chronic although there is concern for acute fracture and MRI may be considered for further evaluation.
Small hiatal hernia.
The endometrium measures up to 7 mm. Consider nonemergent pelvic ultrasound for further evaluation.
- Head CT conducted on 04/02/2025:
No acute intracranial abnormality noted.
- Chest x-ray conducted on 04/03/2025:
Minimal bibasilar atelectasis, more pronounced on the left.
Anticipated Discharge: Today
Subjective/Interval History
-
Date of Service: April 07, 2025
Met with patient at the bedside. Daughter was present and we discussed upcoming discharge planning. Patient and family are working with case management to decide whether discharge to [facility] or back to [place] would be favorable for the
patient. Patient in a good mood and frequently makes jokes while talking to me. She notes that she had odd visual disturbances in the morning and at various times throughout her hospital stay stating that when she was looking at the clock today
she was seeing numerous numbers that were not normal and doubles, triples, and quadruple is of the same number on the same clock. Patient does not feel dizzy or confused and is acting at her normal baseline according to her daughter who is at the
bedside.
Objective Data
-
Labs:
Laboratory Results
04/07/25
07:06
WBC 5.9
Hgb 12.4
Hct 36.8 L
Plt Count 231
Vital Signs:
Vital Signs
Temp Pulse Resp BP Pulse Ox
98.1 F 72 16 139/78 95
04/07/25 07:45 04/07/25 07:45 04/07/25 07:45 04/07/25 07:45 04/07/25 07:45
I&O
04/06/25 04/07/25 04/08/25
06:59 06:59 06:59
Intake Total 920 / 920 680 / 680
Balance 920 / 920 680 / 680
Review of Systems
-
History Source: Patient
Constitutional: Reports No Symptoms
EENT: Reports No Symptoms Reported
Respiratory: Reports No Symptoms
Cardiac: Reports No Symptoms
Abdomen/GI: Reports No Symptoms
Breast: Reports No Symptoms
Genitourinary: Reports No Symptoms
Musculoskeletal: Reports No Symptoms
Skin: Reports No Symptoms
Neuro: Reports No Symptoms
Physical Exam
-
General: Well Developed, Well Nourished, No Apparent Distress and Comfortable
HEENT: Normocephalic, Atraumatic and Moist Mucous Membranes
Respiratory: Clear to Auscultation; Negative Wheezes or Rales
Cardiac: Regular Rhythm and S1/S2; Negative Murmur or Rub
GI: Soft, Nontender, Nondistended and Normal Bowel Sounds
Rectal: Deferred by Provider
Musculoskeletal: No Clubbing, No Cyanosis and No Edema
Skin: Warm and Dry; Negative Rash, Ulcers or Lesions
Neuro: Awake, Alert, Oriented and AO x 3
Psych: Calm
[2025-04-07 07:34] LABS: Hematocrit 36.8 % (37.0-47.0); Hemoglobin 12.4 g/dL (12.0-16.0); Mean Corp Hgb Conc. 33.7 g/dL (33.0-37.0); Mean Corpuscular Volume 91.5 fL (81.0-99.0); Platelet Count 231 10^3/uL (130-400); Red Cell Dist. Width 13.6 % (11.5-14.5)
[2025-04-07 07:45] VITALS: BP 139/78
--- NOTE | 2025-04-07 08:29 | PN.DE.MGMTRT ---
Insulin Management
- -
04/07/2025: Diabetes Management Consult Follow up
Patient admitted 04/02 c/o nausea, headache and fatigue, found to have colitis and DKA. PMH: HTN, HLD, Hypothyroid, IDDM. Was started on DKA protocol. Prior to admission, was taking Lantus 33 units daily and Humalog 7 units AC. Uses CGM- Dexcom G7.
Glucose on admission was 591 venous. Cr 0.9, eGFR> 60. A1C 11%.
Patient awake, alert, oriented, sitting up in bed, able to discuss diabetes care plan has memory issues. at bedside. Patient sees Dr. Shabazz for diabetes care, last seen October 2024.
Pt was transitioned off DKA protocol on 04/03 @16:30 to SQ insulin.
04/06 Fasting glucose 237. AM lantus increased to 25 units with novolog 8 units AC with low corrective.
04/07 Fasting glucose 142. Will make no change to regimen lantus 25 units in AM with 8 units novolog AC.
Provided printed instruction for each step of insulin administration.
04/04 Had a lengthy discussion about pt's current A1C and glucose level on admission which was 591.
I discussed the need for consistent insulin administration with Pt, and all her children at the bedside.
Family reports that patient is having cognitive decline and is getting more forgetful and confused about managing her insulin administration at home.
Pt's states that pt does not hold the insulin pen for 10 secs after injecting the insulin and that he doesn't think she gets the full dose each time.
I have asked the if he is able to assist with insulin adm and he states that he has at times when he is able to. He is not sure if pt is consistently taking the insulin on days when he's not available to adm it. I have asked the to
assume that role of administering her insulin at all times moving forward and he was agreeable to the plan. 04/05 Reinforced above and importance of family supervising all injections.
04/06/2025 One hour education session with patient, , 2 daughter, Delfina and her and Marilin (Director of [facility]). Patient and reside independently at [facility] and will continue to do so at discharge. All
aspects of patient diabetes discussed including use of DexCom and recording blood sugars on a tablet before each meal, hs and if the DexCom alarms. Reviewed settings of DexCom, alerts when glucose is < 80 and > 250. Provided instructions to all
members of family on calibration of DexCom. Provided instructions on actions to take if glucose is too low, < 80 and when a snack is needed at bedtime. Also reviewed insulin administration with patient as he will be assuming responsibility
for insulin administration. As it was lunch time I did have Mr. Key administer patients insulin at lunch. I did ask nursing to have him administer at dinner just for repetition. Daughter will email me glucose results 3 days after discharge.
They will arrange follow up visit with Dr. Shabazz.
Diabetes History
- -
Type of Diabetes: 2 requiring insulin
Pre-Admission Diabetes Regimen
04/06/25
06:46
Creatinine 0.5 L
Lab Results
Hemoglobin A1c 11.0 % (4.0-5.6) H 04/03/25 04:29
Insulin Pump Settings
IP Diabetes Regimen
04/06/25 04/06/25 04/06/25
06:46 11:49 17:00
Glucose 223 H
POC Glucose 265 H 137 H
04/06/25 04/07/25
21:01 06:55
Glucose
POC Glucose 157 H 142 H
Meal type: Dinner
Meal type: Lunch
Meal type: Breakfast
Amount consumed: 80%
Amount consumed: 100%
Amount consumed: 80%
Patient Education
[2025-04-07] MEDS: NOVOLOG FLEXPEN 8 UNITS SC ×3 (08:59→17:51)
[2025-04-07] MEDS: NOVOLOG FLEXPEN-LOW RESISTANCE SC ×2 (09:00→17:51)
[2025-04-07] MEDS: LANTUS 0.25 UNITS SC (09:01)
[2025-04-07] MEDS: LIPITOR 80 MG PO (09:04)
[2025-04-07] MEDS: ASPIR LOW (ENTERIC COATED) 81 MG PO (09:04)
[2025-04-07] MEDS: CYMBALTA DELAYED RELEASE 40 MG PO (09:04)
[2025-04-07] MEDS: MIRALAX PO (09:07)
--- NOTE | 2025-04-07 10:47 | CM ---
Placed a call to [facility] and left a message for the DON to discuss if they feel that their facility can support patient at her current level of functioning and to express that medical staff/PT is indicating SNF.
Plan: Case management will continue to follow and assist with discharge planning. SNF vrs. Back to [facility].
[2025-04-07 11:07] LABS: ALT (SGPT) 29 U/L (0-35); AST (SGOT) 47 U/L (14-36); Albumin 3.1 g/dl (3.5-5.0); Alkaline Phosphatase 92 U/L (38-126); Blood Urea Nitrogen 16 mg/dl (7-17); Calcium 8.4 mg/dl (8.4-10.2); Carbon Dioxide 25 mmol/L (22-30); Chloride 111 mmol/L (98-107); Estimated Creatinine Clearance 77 ml/min; Glucose 148 mg/dl (70-99); Potassium 4.2 mmol/L (3.5-5.1); Sodium 137 mmol/L (135-145); Total Protein 5.6 g/dl (6.3-8.2); eGFR > 60.00
[2025-04-07 11:40] VITALS: BP 130/86; PULSE 90; O2SAT 96
[2025-04-07 11:44] VITALS: BP 130/86; PULSE 91; O2SAT 96
[2025-04-07 12:16] LABS: Glucose - Point of Care 283 mg/dl (70-99)
[2025-04-07] MEDS: NOVOLOG FLEXPEN-LOW RESISTANCE 3 UNITS SC (12:16)
[2025-04-07 15:38] VITALS: BP 122/71
--- NOTE | 2025-04-07 16:36 | CM ---
Spoke with PT who stated that patient is not safe to return to her previous living environment. Spoke with daughter who stated that besides [facility], family will also be agreeable to referral being made to [facility]. Will make referral.
Plan: Case management will continue to follow and assist with discharge planning. SNF.
--- NOTE | 2025-04-07 17:16 | W.DCSUMMARY ---
Documented by User: Bobby Jay MD, Resident 04/07/25 17:41
Discharge Summary
Discharge Data
Date of Admission: 04/02/25
Date of Discharge: 04/07/25
-
Pending Results: No
Hospital Course
Discharging Physician : Brian Kwan MD
Disposition : [facility]/SNF
Primary care physician : Adarsh Villela
Principal Discharge diagnosis : Diabetic ketoacidosis
Chronic Discharge diagnosis :
Type 2 diabetes requiring insulin
Essential hypertension
Hyperlipidemia
Hospital Course : Patient is a 80-year-old female with a history of insulin dependent diabetes melitis, hypertension, preserved renal function presented to the emergency department with acute nausea, fatigue, weakness that started the morning of
her presentation. Her blood sugars have been elevated and are typically poorly controlled with a blood sugar around the 300 range. Over the last week her blood sugars averaged are over 400. In the emergency department the patient denied any chest
pain, shortness of breath, fever, focal neurologic symptoms or other complaints. Neuroexam was nonfocal. Lipase and LFTs were ordered down in the emergency department. A CT scan of the abdomen was conducted and was nonfocal. CT of the head
conducted down to the emergency department showed no acute intracranial abnormality. On arrival to the emergency department, the patient's blood glucose was 591, serum bicarbonate level was 9, patient was hyponatremic at 134, anion gap calculated
to be 23, there were elevated urine ketones present at 3+, and the patient had leukocytosis with a white blood cell count of 13.5. The patient was admitted to the ICU for diabetic ketoacidosis with an anion gap of 23.
Patient was started on an insulin drip in the ICU in order to close the anion gap. Urine analysis and blood cultures were sent. CT of the abdomen and pelvis showed mild rectal stool burden with a mild perirectal stranding suggestive of stercoral
colitis. IV cefepime and Flagyl were given. Patient was found to have a lactic acid of 2.2 and had a peak of 3.3. The lactic acid started to trend down to 1.5 shortly after administration of insulin. Hemoglobin A1c was found to be 11. Once the
anion gap closed patient was put on an insulin sliding scale. Head CT conducted showed no acute intracranial abnormality. Chest x-ray showed mild bibasilar atelectasis more pronounced on the left. Diabetic nurse practitioner was consulted for
management of outpatient insulin regimen. Patient was also found to have an elevated TSH which was suspected to be due to euthyroid sick syndrome secondary to DKA. It is recommended that the patient repeat a TSH within 1 week following discharge.
After fine-tuning the patient's insulin regimen it was determined that the patient would be best discharged on Lantus 25 units in the AM with 8 units NovoLog AC. Patient believes that she is back at her baseline and would like to be discharged.
The patient has reached maximal benefit from this hospital admission and the patient is appropriate for discharge at the present time. There are no barriers that would impede the patient from being discharged from the hospital at the present time.
The patient should follow-up with their primary care provider within 1 week following discharge. Patient should follow-up with her butcher apprentice within 1 to 2 weeks after discharge.
Important imaging findings :
- Abdomen/pelvis CT conducted on 04/02/2025:
Mild rectal stool burden with mild perirectal stranding suggestive of stercoral colitis.
Mild compression deformity of the T11 vertebral body which is likely chronic although there is concern for acute fracture and MRI may be considered for further evaluation.
Small hiatal hernia.
The endometrium measures up to 7 mm. Consider nonemergent pelvic ultrasound for further evaluation.
- Head CT conducted on 04/02/2025:
No acute intracranial abnormality noted.
- Chest x-ray conducted on 04/03/2025:
Minimal bibasilar atelectasis, more pronounced on the left.
Procedure findings : N/A
Discharge Plan
-
Patient Disposition: Custodial/SNF
Discharge Diagnosis/Procedures: Diabetic ketoacidosis
Stercoral colitis
Euthyroid sick syndrome
Condition: Fair
Diet: Diabetic, Carb Controlled
Activity: As tolerated
Driving Restrictions: Not until seen by your Dr
Blood Work: TSH in 1 week after discharge with PCP
Other Services: PT and OT
Specialty Instructions: Weigh Daily- Call MD for wt gain/loss 3 lbs overnight/5 lbs in 1 week
Referrals:
Eloisa Vasquez MD [Consulting Staff, Endocrinology] - in one to two weeks
Adarsh Villela MD [Family Provider, Family Practice] - in less than 1 week
Prescriptions:
New
atorvastatin 80 mg Tablet
80 mg PO DAILY Qty: 30 0RF
insulin aspart U-100 100 unit/mL (3 mL) Insulin Pen
8 unit SC AC Qty: 15 0RF
Insulin Glargine Lantus [Lantus] 25 UNITS
Subcutaneous Insulin Syringe [Syringe-Insulin] 0 UNIT
As Directed mls/hr SC DAILY@0800
Reason for use: Diabetes
Ordered By: Bobby Jay MD, Resident
Last Taken: 04/07/25 09:01 0.25 mls
sennosides [Linn-mu] 8.6 mg Tablet
17.2 mg PO BIDPRN PRN (Reason: constipation) Qty: 60 0RF
(DME) pen needle, diabetic [Ro 2nd Gen Pen Needle] 32 gauge x 5/32' Needle
Qty: 200 1RF
Rx Instructions:
Use with prefilled lantus and humalog pens As Directed
insulin lispro [Humalog KwikPen Insulin] 100 unit/mL Insulin Pen
8 unit SC AC Qty: 5 1RF
insulin glargine [Lantus Solostar U-100 Insulin] 100 unit/mL (3 mL) Insulin Pen
25 unit SC DAILY Qty: 5 1RF
Continued
aspirin 81 mg Tablet,Delayed Release (Dr/Ec)
81 mg PO DAILY
lisinopril 10 mg tablet
10 mg PO HS
cholecalciferol (vitamin D3) [Vitamin D3] 50 mcg (2,000 unit) Capsule
100 mcg PO HS
PreserVision AREDS-2 250-90-40-1 mg Capsule
1 tab PO BID
Centrum Chewables 8 mg-400 mcg- 10 mcg Tablet,Chewable
2 tab PO DAILY
calcium carbonate [Calcium 500] 500 mg calcium (1,250 mg) Tablet,Chewable
1,000 mg PO DAILY
levothyroxine [Synthroid] 112 mcg Tablet
112 mcg PO DAILY
duloxetine [Cymbalta] 20 mg Capsule,Delayed Release(Dr/Ec)
40 mg PO DAILY
Discontinued
atorvastatin [Lipitor] 80 mg Tablet
80 mg PO DAILY
insulin aspart U-100 100 unit/mL (3 mL) insulin pen
1 sliding scale dose SC AC Qty: 90 0RF
insulin lispro [Humalog KwikPen Insulin] 100 unit/mL insulin pen
7 unit SC AC Qty: 0 0RF
insulin glargine [Lantus Solostar U-100 Insulin] 100 unit/mL (3 mL) insulin pen
35 unit SC DAILY Qty: 0 0RF
Discharge Orders:
Discharge Patient (As Directed); Ordered 04/07/25
Ordered By: Bobby Jay
Discharge Date and Time
Print Language: [place]

Documented by User: Brian Kwan DO 04/07/25 17:49
Discharge Summary
Discharge Data
Date of Admission: 04/02/25
Date of Discharge: 04/07/25
Total time spent discharging patient (in min): 35
Discharge Plan
-
Patient Disposition: Custodial/SNF
Discharge Diagnosis/Procedures: Diabetic ketoacidosis
Stercoral colitis
Euthyroid sick syndrome
Condition: Fair
Diet: Diabetic, Carb Controlled
Activity: As tolerated
Driving Restrictions: Not until seen by your Dr
Blood Work: TSH in 1 week after discharge with PCP
Other Services: PT and OT
Specialty Instructions: Weigh Daily- Call MD for wt gain/loss 3 lbs overnight/5 lbs in 1 week
Referrals:
Eloisa Vasquez MD [Consulting Staff, Endocrinology] - in one to two weeks
Adarsh Villela MD [Family Provider, Family Practice] - in less than 1 week
Prescriptions:
New
atorvastatin 80 mg Tablet
80 mg PO DAILY Qty: 30 0RF
insulin aspart U-100 100 unit/mL (3 mL) Insulin Pen
8 unit SC AC Qty: 15 0RF
Insulin Glargine Lantus [Lantus] 25 UNITS
Subcutaneous Insulin Syringe [Syringe-Insulin] 0 UNIT
As Directed mls/hr SC DAILY@0800
Reason for use: Diabetes
Ordered By: Bobby Jay MD, Resident
Last Taken: 04/07/25 09:01 0.25 mls
sennosides [Linn-mu] 8.6 mg Tablet
17.2 mg PO BIDPRN PRN (Reason: constipation) Qty: 60 0RF
(DME) pen needle, diabetic [Ro 2nd Gen Pen Needle] 32 gauge x 5/32' Needle
Qty: 200 1RF
Rx Instructions:
Use with prefilled lantus and humalog pens As Directed
insulin lispro [Humalog KwikPen Insulin] 100 unit/mL Insulin Pen
8 unit SC AC Qty: 5 1RF
insulin glargine [Lantus Solostar U-100 Insulin] 100 unit/mL (3 mL) Insulin Pen
25 unit SC DAILY Qty: 5 1RF
Continued
aspirin 81 mg Tablet,Delayed Release (Dr/Ec)
81 mg PO DAILY
lisinopril 10 mg tablet
10 mg PO HS
cholecalciferol (vitamin D3) [Vitamin D3] 50 mcg (2,000 unit) Capsule
100 mcg PO HS
PreserVision AREDS-2 250-90-40-1 mg Capsule
1 tab PO BID
Centrum Chewables 8 mg-400 mcg- 10 mcg Tablet,Chewable
2 tab PO DAILY
calcium carbonate [Calcium 500] 500 mg calcium (1,250 mg) Tablet,Chewable
1,000 mg PO DAILY
levothyroxine [Synthroid] 112 mcg Tablet
112 mcg PO DAILY
duloxetine [Cymbalta] 20 mg Capsule,Delayed Release(Dr/Ec)
40 mg PO DAILY
Discontinued
atorvastatin [Lipitor] 80 mg Tablet
80 mg PO DAILY
insulin aspart U-100 100 unit/mL (3 mL) insulin pen
1 sliding scale dose SC AC Qty: 90 0RF
insulin lispro [Humalog KwikPen Insulin] 100 unit/mL insulin pen
7 unit SC AC Qty: 0 0RF
insulin glargine [Lantus Solostar U-100 Insulin] 100 unit/mL (3 mL) insulin pen
35 unit SC DAILY Qty: 0 0RF
Discharge Orders:
Discharge Patient (As Directed); Ordered 04/07/25
Ordered By: Bobby Jay
Discharge Date and Time
Print Language: [place]
[2025-04-07 17:51] LABS: Glucose - Point of Care 131 mg/dl (70-99)
[2025-04-07] MEDS: LOVENOX 40 MG SC (18:16)
[2025-04-07 21:34] LABS: Glucose - Point of Care 216 mg/dl (70-99)
[2025-04-07 23:15] VITALS: BP 136/76
[2025-04-08] MEDS: SYNTHROID 112 MCG PO (05:38)
[2025-04-08 06:00] VITALS: BMI 37.0
[2025-04-08 07:17] VITALS: BP 157/80
--- NOTE | 2025-04-08 07:30 | W.PN.HOSP.TC ---
Today's Communication/Plan
-
Continuing with discharge planning.
Patient cleared from medical perspective
Patient to be discharged to SNF once bed available
Assessment / Plan
Assessment / Plan
HPI: Patient is a 80-year-old female with a history of insulin dependent diabetes melitis, hypertension, preserved renal function presented to the emergency department with acute nausea, fatigue, weakness that started the morning of her
presentation. Her blood sugars have been elevated and are typically poorly controlled with a blood sugar around the 300 range. Over the last week her blood sugars averaged are over 400. In the emergency department the patient denied any chest
pain, shortness of breath, fever, focal neurologic symptoms or other complaints. Neuroexam was nonfocal. Lipase and LFTs were ordered down in the emergency department. A CT scan of the abdomen was conducted and was nonfocal. CT of the head
conducted down to the emergency department showed no acute intracranial abnormality. On arrival to the emergency department, the patient's blood glucose was 591, serum bicarbonate level was 9, patient was hyponatremic at 134, anion gap calculated
to be 23, there were elevated urine ketones present at 3+, and the patient had leukocytosis with a white blood cell count of 13.5. The patient was admitted to the ICU for diabetic ketoacidosis with an anion gap of 23.
Assessment and plan:
-Diabetic ketoacidosis: Resolved
Patient lethargic and somnolent
Patient's blood glucose was 591, serum bicarb level was 9 patient was hyponatremic at 134, anion gap calculated to be 23, there were elevated urine ketones present at 3+
Anion gap closed on 04/03/2025. Anion gap calculated to be 3.0 at 12:17 on 04/03/2025. Anion gap remains at 3 on 04/04/2025. Anion gap remains closed
- Leukocytosis: Resolved
Patient had a white blood cell count of 13.5 in the emergency department
White blood cells 14.9 on 04/03/2025, 12.1 on 04/04/2025, 6.4 on 04/05/2025
Blood culture positive for gram-positive cocci -likely contaminant
CT of the abdomen and pelvis showed mild rectal stool burden with a mild perirectal stranding suggestive of stercoral colitis -bisacodyl given
IV cefepime and Flagyl given -discontinued - leukocytosis resolved
-Lactic acidosis: Resolved
Patient had a lactic acid level of 2.2 on admission and hit a peak at 3.3. Trended down to 1.5 on 04/03/2025
- Type 2 diabetes requiring insulin: Stable - monitoring
Patient blood glucose was 591 at admission and was 161 on 04/03/2025
Hemoglobin A1c found to be 11 -poor glycemic control
Patient off of insulin drip�transitioning to sliding scale insulin, received 20 units glargine on 04/03/2025 and 5 units lispro during the day, patient received an additional 8 units of glargine over the evening.
Diabetic nurse practitioner educating family on proper insulin dosage. Patient on insulin sliding scale with Accu-Chek blood glucose goal of 140�180.
Carb controlled diet
Essential hypertension: Stable�monitoring
Holding antihypertensive medications until blood pressure is more stable
Hypothyroidism: Stable
Patient had a TSH of 14.4
Free T4 is 1.1
It could be possible that the patient is suffering from sick euthyroid syndrome secondary to DKA. Transient TSH elevation is generally a nonspecific response to acute illness or recovery and is not an indication for thyroid hormone medication
adjustments. It would be anglin to recheck TSH following the resolution of her DKA.
Recheck TSH in the outpatient setting
-Somnolence/altered mental status: Monitoring�resolved/back at baseline
Head CT shows no acute intracranial abnormality
Altered mental status likely due to DKA and mentation improving as anion gap closed
-Hyperlipidemia: Stable
Continue statin and aspirin
DVT prophylaxis: Lovenox subcu
FULL CODE STATUS
Imaging:
- Abdomen/pelvis CT conducted on 04/02/2025:
Mild rectal stool burden with mild perirectal stranding suggestive of stercoral colitis.
Mild compression deformity of the T11 vertebral body which is likely chronic although there is concern for acute fracture and MRI may be considered for further evaluation.
Small hiatal hernia.
The endometrium measures up to 7 mm. Consider nonemergent pelvic ultrasound for further evaluation.
- Head CT conducted on 04/02/2025:
No acute intracranial abnormality noted.
- Chest x-ray conducted on 04/03/2025:
Minimal bibasilar atelectasis, more pronounced on the left.
Anticipated Discharge: Within 24 hours
Subjective/Interval History
-
Date of Service: April 08, 2025
Met with patient at the bedside. Overall, she states that she is doing well and believes that she is back at her baseline. She is unsure why she ended up spending the night and believes that it is because she needed more diabetic nurse education.
She appears to still be very forgetful but this is not unusual for her baseline. She recalls that she received her morning insulin prior to having her meal today.
Objective Data
-
Vital Signs:
Vital Signs
Temp Pulse Resp BP Pulse Ox
98.5 F 74 18 157/80 96
04/08/25 07:17 04/08/25 07:17 04/08/25 07:17 04/08/25 07:17 04/08/25 07:17
I&O
04/07/25 04/08/25 04/09/25
06:59 06:59 06:59
Intake Total 680 / 680 1440 / 1440
Balance 680 / 680 1440 / 1440
Review of Systems
-
History Source: Patient
All other systems: Reviewed and negative
Physical Exam
-
General: Well Developed, Well Nourished, No Apparent Distress, Comfortable and Obese
HEENT: Normocephalic, Atraumatic and Moist Mucous Membranes
Respiratory: Clear to Auscultation; Negative Wheezes, Rales, Rhonchi or Crackles
Cardiac: Regular Rhythm and S1/S2
Breast: Deferred by me
GI: Soft, Nontender, Nondistended and Normal Bowel Sounds
Musculoskeletal: No Clubbing, No Cyanosis and No Edema
Skin: Warm, Dry and Normal Turgor; Negative Rash, Ulcers, Lesions or Jaundice
Neuro: Awake, Alert, Oriented and AO x 3
Psych: Calm
[2025-04-08 07:35] LABS: Glucose - Point of Care 173 mg/dl (70-99)
--- NOTE | 2025-04-08 07:40 | PN.DE.MGMTRT ---
Insulin Management
- -
04/08/2025: Diabetes Management Follow up
Patient admitted 04/02 c/o nausea, headache and fatigue, found to have colitis and DKA. PMH: HTN, HLD, Hypothyroid, IDDM. Was started on DKA protocol. Prior to admission, was taking Lantus 33 units daily and Humalog 7 units AC. Uses CGM- Dexcom G7.
Glucose on admission was 591 venous. Cr 0.9, eGFR> 60. A1C 11%. Patient sees Dr. Shabazz for diabetes care, last seen October 2024.
Patient awake, alert, oriented, sitting up in bed, able to discuss diabetes care plan has memory issues. and Dtr at bedside.
Pt was transitioned off DKA protocol on 04/03 @16:30 to SQ insulin.
04/07 premeal glucose range 131 to 283, Fasting glucose 173 this AM
Will make no changes to current regimen: Cont Lantus 25 units with NovoLog 8 units AC with low corrective.
Provided printed instruction for each step of insulin administration.
Pt is going to SNF for rehab, nursing staff will cont to work with and reinforce education for insulin administration
04/04 Had a lengthy discussion about pt's current A1C and glucose level on admission which was 591.
I discussed the need for consistent insulin administration with Pt, and all her children at the bedside.
Family reports that patient is having cognitive decline and is getting more forgetful and confused about managing her insulin administration at home.
Pt's states that pt does not hold the insulin pen for 10 secs after injecting the insulin and that he doesn't think she gets the full dose each time.
I have asked the if he is able to assist with insulin adm and he states that he has at times when he is able to. He is not sure if pt is consistently taking the insulin on days when he's not available to adm it. I have asked the to
assume that role of administering her insulin at all times moving forward and he was agreeable to the plan. 04/05 Reinforced above and importance of family supervising all injections.
04/06/2025 One hour education session with patient, , 2 daughter, Delfina and her and Marilin (Director of [facility]). Patient and reside independently at [facility] and will continue to do so at discharge. All
aspects of patient diabetes discussed including use of DexCom and recording blood sugars on a tablet before each meal, hs and if the DexCom alarms. Reviewed settings of DexCom, alerts when glucose is < 80 and > 250. Provided instructions to all
members of family on calibration of DexCom. Provided instructions on actions to take if glucose is too low, < 80 and when a snack is needed at bedtime. Also reviewed insulin administration with patient as he will be assuming responsibility
for insulin administration. As it was lunch time I did have Mr. Key administer patients insulin at lunch. I did ask nursing to have him administer at dinner just for repetition. Daughter will email me glucose results 3 days after discharge.
They will arrange follow up visit with Dr. Shabazz.
Diabetes History
- -
Type of Diabetes: 2 requiring insulin
Pre-Admission Diabetes Regimen
04/07/25
07:05
Creatinine 0.5 L
Lab Results
Hemoglobin A1c 11.0 % (4.0-5.6) H 04/03/25 04:29
Insulin Pump Settings
IP Diabetes Regimen
04/07/25 04/07/25 04/07/25
07:05 12:14 17:50
Glucose 148 H
POC Glucose 283 H 131 H
04/07/25 04/08/25
21:32 07:33
Glucose
POC Glucose 216 H 173 H
Meal type: Lunch
Meal type: Breakfast
Amount consumed: 100%
Amount consumed: 100%
Patient Education
[2025-04-08] MEDS: NOVOLOG FLEXPEN 8 UNITS SC ×2 (07:59→12:33)
[2025-04-08] MEDS: ASPIR LOW (ENTERIC COATED) 81 MG PO (08:00)
[2025-04-08] MEDS: CYMBALTA DELAYED RELEASE 40 MG PO (08:00)
[2025-04-08] MEDS: LIPITOR 80 MG PO (08:00)
[2025-04-08] MEDS: NOVOLOG FLEXPEN-LOW RESISTANCE 1 UNITS SC ×2 (08:00→12:33)
[2025-04-08] MEDS: MIRALAX PO (08:00)
[2025-04-08] MEDS: LANTUS 0.25 UNITS SC (08:01)
--- NOTE | 2025-04-08 10:29 | CM ---
Addendum entered by SAMANTHA Frost 04/08/25 12:36:
Update provided to Vickie Shine who is patient's other daughter. She is agreeable to transfer. 13:00 p/u time. Patient had lunch. RN gave report. Patient's daughter signed IMM. It was reviewed and put on chart.
Original Note:
Received call from Maria Del Carmen in admissions at [facility]. She confirmed that she can offer a bed for patient, today. Patient Medicare, no auth needed. # For report [phone] and Report [phone]
Will complete medical necessity and transfer sheet for 4e community outreach worker.
Will update RN.
Placed a call to patient's daughter, Marilin, and discussed transfer. She is agreeable. Patient's other daughter in room, will update patient and the rest of family as well.
Attending stated that he would order a Covid test prior to transfer.
Plan: Case management will continue to follow and assist with discharge planning. [facility] today.
[2025-04-08 10:58] LABS: COVID-19 Antigen Negative (Negative)
[2025-04-08 12:23] LABS: Glucose - Point of Care 191 mg/dl (70-99)
== END 2025-04-08 14:06 | DRG 637 ==
LOC: 4 EAST ACU 22:29
PROVIDERS: Nurse Practitioner Family; ADMITTING PHYSICIAN Internal Medicine; ATTENDING PHYSICIAN Internal Medicine; CONSULT PHYSICIAN Internal Medicine Critical Care Medicine; EMERGENCY PHYSICIAN Emergency Medicine; FAMILY PHYSICIAN Family Medicine
DX: E11.10 Type 2 diabetes mellitus with ketoacidosis without coma (principal); G93.41 Metabolic encephalopathy; E87.5 Hyperkalemia; I10 Essential (primary) hypertension; E03.9 Hypothyroidism, unspecified; K52.9 Noninfective gastroenteritis and colitis, unspecified; Z11.52 Encounter for screening for COVID-19
CPT/HCPCS: 51701; 70450; 71045; 74177; 80048; 80053; 81003; 81015; 82010; 82248; 82805; 82962; 83036; 83605; 83735; 84100; 84439; 84443; 84484; 85025; 85027; 85610; 85730; 87040; 87147; 87154; 87205; 87811; 93005; 96361; 96365; 96375; 97163; 97167; 97530; 99291; Q9967